=== PATIENT | male | born 1965 | race Caucasian/White ===

== ENCOUNTER 2021-09-03 08:15 | Outpatient (REF) | payer OTHER, SELFPAY ==
[2021-09-03 10:54] LABS: Hemoglobin 15.5 g/dl (14.0-18.0); Mean Corpuscular Hemoglobin 29.3 pg (27.0-33.0); Mean Corpuscular Volume 88.8 fL (80.0-98.0); Mean Platelet Volume 9.7 fL (9.4-12.4); Platelet Count 223 X10*3/uL (160-400); Red Blood Count 5.29 X10*6/uL (4.60-5.80); Red Cell Distribution Width 12.1 % (11.0-16.0); White Blood Count 7.7 X10*3/uL (4.8-10.8)
[2021-09-03 11:08] LABS: Alanine Aminotransferase 27 U/L (0-40); Albumin Level 4.2 g/dL (3.5-5.0); Alkaline Phosphatase 58 U/L (39-117); Anion Gap 13 (12-20); Aspartate Amino Transferase 18 U/L (5-37); Bilirubin Total 0.5 mg/dL (0.0-1.0); Blood Urea Nitrogen 18 mg/dL (9-16); Calcium 9.4 mg/dL (8.4-10.2); Carbon Dioxide 26 mmol/L (22-29); Chloride 105 mmol/L (96-108); Cholesterol 166 mg/dL; Estimated Glomerular Filt Rate > 60; Glucose Fasting 162 mg/dL (60-99); HDL Cholesterol 34 mg/dL; LDL Cholesterol Calculated 106 mg/dl; Potassium 4.7 mmol/L (3.3-5.1); Sodium 139 mmol/L (135-145); Total Protein 7.1 g/dL (6.5-8.0); Triglycerides 134 mg/dL
[2021-09-03 11:30] LABS: TSH reflex Free T4 0.83 uIU/mL (0.32-4.0)
== END 2021-09-03 08:16 | disposition home or self-care (01) ==
LOC: HO.WFDLDS 08:15
PROVIDERS: Visit Provider Hospitalist
DX: Z00.00 Encounter for general adult medical examination without abnormal findings (principal)
CPT/HCPCS: 36415; 80053; 80061; 84443; 85027

== ENCOUNTER 2022-07-09 09:32 | Outpatient (REF) | payer BC, SELFPAY ==
[2022-07-09 12:00] LABS: Appearance Urine Hazy; Color Urine Yellow; Glucose Urine UA Negative (Negative); Leukocyte Esterase Urine Negative (Negative); Nitrite Urine Negative (Negative); Specific Gravity - Urine 1.025 (1.005-1.025); UMIC TRIGGER UA YES; Urine Blood Negative (Negative); Urine Ketones Negative (Negative); Urine Protein 30 (1+) mg/dL (Neg-Trace)
[2022-07-09 12:08] LABS: Bacteria Urine None Seen (None Seen); Hyaline Casts Urine 0-2 /LPF (0-2); Squamous Epithelial Cell Urine 0-2 /HPF (0-2); WBC Urine 0-5 /HPF (0-5)
[2022-07-09 12:52] LABS: Creatinine Urine 135.22 mg/dL; Microalbum/Creatinine Ratio Ur 17.7 ug/mg cr
== END 2022-07-09 09:33 | disposition home or self-care (01) ==
LOC: HO.WFDLNP 09:32
PROVIDERS: Visit Provider Family Medicine
DX: Z00.00 Encounter for general adult medical examination without abnormal findings (principal); I10 Essential (primary) hypertension; N47.1 Phimosis
CPT/HCPCS: 81001; 81003; 82043

== ENCOUNTER 2022-07-25 07:34 | Outpatient (REF) | payer BC, SELFPAY ==
[2022-07-25 08:21] LABS: Basophils Absolute Auto 0.1 X10*3/uL (0.0-0.2); Basophils Percent Auto 0.7 % (0-2); Eosinophils Absolute Auto 0.1 X10*3/uL (0.0-0.4); Eosinophils Percent Auto 1.4 % (0-4); Hematocrit 48.2 % (42.0-52.0); Hemoglobin 16.5 g/dl (14.0-18.0); Imm Gran Abs Auto 0.03 X10*3/uL (0.00-0.03); Imm Gran Pct Auto 0.4 % (0.0-0.4); Lymphocytes Percent Auto 25.5 % (20-40); MANUAL DIFF FLAG SCAN; Mean Corpuscular HGB Conc 34.2 g/dl (31.0-36.0); Mean Corpuscular Hemoglobin 29.9 pg (27.0-33.0); Mean Corpuscular Volume 87.5 fL (80.0-98.0); Monocytes Absolute Auto 0.6 X10*3/uL (0.1-1.2); Monocytes Percent Auto 8.2 % (2-11); NRBC Pct Auto 0.3 /100WBC (0.0-0.2); Neutrophils Absolute Auto 4.9 x10*3/uL (2.0-8.3); Neutrophils Percent Auto 63.8 % (45-73); PLT CLUMP 1; Red Blood Count 5.51 X10*6/uL (4.60-5.80); Red Cell Distribution Width 12.1 % (11.0-16.0); SCAN SMEAR FLAG 1
[2022-07-25 08:50] LABS: Alanine Aminotransferase 42 U/L (0-40); Albumin Level 4.2 g/dL (3.5-5.0); Alkaline Phosphatase 63 U/L (39-117); Anion Gap 13 (12-20); Aspartate Amino Transferase 29 U/L (5-37); Bilirubin Total 0.6 mg/dL (0.0-1.0); Blood Urea Nitrogen 17 mg/dL (9-16); Calcium 9.6 mg/dL (8.4-10.2); Carbon Dioxide 26 mmol/L (22-29); Chloride 108 mmol/L (96-108); Cholesterol 170 mg/dL; Estimated Glomerular Filt Rate > 60; Glucose Fasting 112 mg/dL (60-99); HDL Cholesterol 34 mg/dL; LDL Cholesterol Calculated 114 mg/dl; Potassium 4.9 mmol/L (3.3-5.1); Sodium 142 mmol/L (135-145); Total Protein 7.1 g/dL (6.5-8.0); Triglycerides 112 mg/dL
[2022-07-25 08:51] LABS: White Blood Count 7.7 X10*3/uL (4.8-10.8)
[2022-07-25 08:54] LABS: SLIDE REVIEW VERIFIED
[2022-07-25 09:05] LABS: Prostate Specific Antigen Scr 0.76 ng/mL (<0.05-4.0); TSH reflex Free T4 1.24 uIU/mL (0.32-4.0)
== END 2022-07-25 07:35 | disposition home or self-care (01) ==
LOC: HO.LAB 07:34
PROVIDERS: Visit Provider Family Medicine
DX: Z00.00 Encounter for general adult medical examination without abnormal findings (principal); Z12.5 Encounter for screening for malignant neoplasm of prostate
CPT/HCPCS: 36415; 80053; 80061; 84153; 84443; 85025

== ENCOUNTER 2022-09-30 11:46 | Outpatient (AMB) | payer BC, SELFPAY ==
--- NOTE | 2022-09-30 12:24 | A.OFFVIS_ITS ---
Intake Intake Visit Reasons: Phimosis Intake Note: New Patient presents for Phimosis Urology Medications: none Blood Thinner: none Ordnance Engineering Technician Required: No Accompanied by: Self / Same As Patient Allergies No Known Allergies Allergy (Verified 10/01/22 21:30) Medication List - Last Reconciled 10/01/22 by ROSENDO Bright- albuterol sulfate 90 mcg/actuation (ProAir HFA) 2 puffs inhalation Q4-6H PRN dextroamphetamine-amphetamine 20 mg ER (Adderall XR) 40 mg (2 x 20 mg) PO QAM 30 days losartan 25 mg PO DAILY 3 months losartan 50 mg PO DAILY 3 months metronidazole 1% (Metrogel) 1 ea topical DAILY 1 month pantoprazole 40 mg PO DAILY triamcinolone acetonide 0.1% 1 appl topical BID 30 days HPI HPI Comments History of Present Illness Details Jaren is a very pleasant 56-year-old male patient of . He has a past medical history of hypertension, GERD, and obesity. He presents to the office today as a new patient for phimosis. In discussion with the patient today he reports to be doing and feeling well. He reports over the last few months noting increase issues with the foreskin on his penis. He reports having had a similar experience approximately 30 years ago however underwent a circumcision and had been doing well up until months ago. He denies any issues with his urination. He denies urinary urgency, urinary frequency, incontinence, nocturia, hematuria, dysuria, foul smelling urine, changes to urinary stream, flank pain, fever, and or chills. He is happy with her current voiding parameters. He reports for months now he has noted his penis to be getting smaller and feels his foreskin is continuing to retract back onto the head of his penis. In assessment of the patient today it appears foreskin of the penis is covering head of the penis. The tip of the penis and meatus appear reddened and irritated. No open areas, drainage, or lesions noted. Discussed at length weight loss can improve pressure that is being applied to pelvic area and assist with phimosis. In office urinalysis results reviewed with the patient today. Patient otherwise denies any issues or concerns at this time. [facility] Surgical History History of carpal tunnel release History of eye surgery Family History Father No problems noted. Mother Breast cancer Sister In good health Brother Heart problem Social History Housing: House Patient Tobacco Use Status: Former Tobacco user e-Cigarette/Vaping Use: Never Used service: Yes Current occupational status: employed Current occupation: [employer] Cognitive needs: No Hearing needs: No Vision needs: Yes Review of Systems Const Reports as per HPI Eyes Reports no additional complaints ENT Reports no additional complaints Card Reports as per HPI Resp Reports no additional complaints GI Reports as per HPI Reports as per HPI Musc Reports no additional complaints Neuro Reports no additional complaints Psych Reports no additional complaints Endo Reports no additional complaints Kalpesh/Lymph Reports no additional complaints Aller/Immun Reports no additional complaints Physical Exam Const General: cooperative, comfortable, no acute distress, well developed, alert and awake Nutritional Appearance: overweight Orientation/consciousness: patient oriented x3 Limitations: no limitations HEENT Head: Yes normal to inspection, Yes normocephalic and Yes atraumatic Ears: hearing grossly normal bilaterally Eyes General: appearance normal, both eyes and all related structures Neck Neck: Yes normal visual inspection and Yes trachea midline Chest Chest palpation & inspection: normal inspection of the chest Resp Effort & Inspection: normal respiratory effort and able to speak in complete sentences Cardio Rate: regular rate GI Inspection: Yes normal to inspection General: Yes no CVA tenderness Penis: phimosis and other (redness/irritation noted to the head of the penis ) Meatus: Erythema at meatus Scrotum: scrotum normal Testes: Testes normal Back/Spine/Pelvis Back: no CVA tenderness Skin General skin exam: no rashes or lesions noted Neuro General: patient oriented x3 Extrem General: Yes normal to inspection Psych Appearance: grossly normal and well kempt Mental Status: mental status grossly normal Speech and movement: Normal speech and movement present and Clear speech present Affect: normal affect Attitude: cooperative Thought process: Normal thought process present Thought content: Normal thought content present Insight: Fair insight present (Psych) Judgement: Fair judgement present (Psych) Results AMB Urinalysis, Automated UA Leukoctes 15 Alecia/uL Last Edit by Lauren Maosn on 09/30/22 12:34 UA Nitrite Negative Last Edit by Vinhyce Isabella on 09/30/22 12:34 UA Urobilinogen 0.2 mg/dL Last Edit by Vinhyce Isabella on 09/30/22 12:34 UA Protein 15 mg/dL Last Edit by Lauren Mason on 09/30/22 12:34 UA pH 6.0 Last Edit by Vinhyce Isabella on 09/30/22 12:34 UA Blood 0 Andrea/uL Last Edit by Vinhyce Isabella on 09/30/22 12:34 UA Specific [place] 1.020 Last Edit by Vinhyce Isabella on 09/30/22 12:34 UA Ketone Negative Last Edit by [employer] Isabella on 09/30/22 12:34 UA Bilirubin 0 mg/dL Last Edit by Lauren Mason on 09/30/22 12:34 UA Glucose 0 mg/dL Last Edit by Lauren Mason on 09/30/22 12:34 Results Reviewed Results Reviewed: Laboratory Last Values Urine pH (Auto) 6.0 09/30/22 12:28 Specific [place] (Auto) 1.020 09/30/22 12:28 Urine Protein (Auto) 15 mg/dL 09/30/22 12:28 Glucose (UA)(Auto) 0 mg/dL 09/30/22 12:28 Urine Ketones (Auto) Negative 09/30/22 12:28 Urine Blood (Auto) 0 Andrea/uL 09/30/22 12:28 Urine Nitrite (Auto) Negative 09/30/22 12:28 Urine Bilirubin (Auto) 0 mg/dL 09/30/22 12:28 Urine Urobilinogen (Auto) 0.2 mg/dL 09/30/22 12:28 Leukocyte Esterase (Auto) 15 Alecia/uL 09/30/22 12:28 Assessment & Plan Assessment & Plan (1) Phimosis: Code(s): N47.1 - Phimosis Plan In office urinalysis results reviewed with the patient today; as noted above. Start Triamcinolone cream as discussed and prescribed. Discussed at length importance of weight loss for improvement in phimosis due to excessive weight on pelvis Patient denies any urinary issues at this time He is happy with his current voiding parameters Follow-up in 1 month; if not sooner with any issues, concerns, and or questions. Orders: Orders AMB Urinalysis Automated 09/30/22 Z13.9 - Encounter for screening, unspecified Medications: New triamcinolone acetonide 0.1% 1 appl topical BID 30 days 80 grams 0RF Discontinued clobetasol 0.05% Discontinued Reason: Doctor's Order 1 appl topical BID PRN 15 grams 0RF phimosis Patient Instructions: The patient had an opportunity to ask questions regarding the treatment plan. All questions were answered. Physical exam, labs, and imaging were discussed and reviewed in detail. As well as risks, benefits, and discussion of treatment choices. No major barriers to understanding were identified. The patient expressed understanding and agreement with the above treatment plan. The patient was made aware they should contact our office by phone for worsening of their current condition, the appearance of new symptoms, or with any questions or concerns. Compliance is encouraged with any medications and follow up testing that is ordered. It is a privilege to be allowed the opportunity to participate in? your urological care.? Again, if you have any questions or concerns If you have any questions or concerns please do not hesitate to contact me. The office is [phone]. This note is constructed using voice recognition software. While every effort has been made to ensure accuracy train planner errors may have been included. Yours sincerely, MANOHAR Bright Coding Level of Care Code New Pt Level 4 (24654) Diagnoses Phimosis N47.1
== END 2022-09-30 13:00 | disposition home or self-care (01) ==
PROVIDERS: PCP Hospitalist; Visit Provider Nurse Practitioner Family
DX: N47.1 Phimosis (principal)
CPT/HCPCS: 99204

== ENCOUNTER → 2022-09-30 11:46 | Outpatient (BNVA) | payer BC, SELFPAY | PROVIDERS: PCP Hospitalist; Visit Provider Nurse Practitioner Family ==

== ENCOUNTER 2022-11-09 11:22 | Outpatient (AMB) | payer BC, SELFPAY ==
--- NOTE | 2022-11-09 11:27 | A.OFFVIS_ITS ---
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: No Accompanied by: Self / Same As Patient Allergies No Known Allergies Allergy (Verified 11/09/22 11:56) Medication List - Last Reconciled 11/09/22 by JIMBO BrightP- albuterol sulfate 90 mcg/actuation (ProAir HFA) 2 puffs inhalation Q4-6H PRN dextroamphetamine-amphetamine 20 mg ER (Adderall XR) 40 mg (2 x 20 mg) PO QAM 30 days losartan 25 mg PO DAILY 3 months losartan 50 mg PO DAILY 3 months metronidazole 1% (Metrogel) 1 ea topical DAILY 1 month pantoprazole 40 mg PO DAILY triamcinolone acetonide 0.1% 1 appl topical BID 30 days HPI HPI Comments History of Present Illness Details Jaren is a very pleasant 56-year-old male patient of Dr. Hernandez. He has a past medical history of hypertension, GERD, and obesity. He presents to the office today for follow-up. Of note, patient was seen approximately 6 weeks ago as a new patient for phimosis at which time he was prescribed triamcinolone cream. In discussion with the patient today he reports to be doing and feeling well. He discusses his recent vacation to [place] to visit family. He reports cream to be working well however forgot to pack the cream when he was on vacation and did not use it for approximately 8 days. He otherwise feels cream is working. He denies any issues with his urination. He denies urinary urgency, urinary frequency, incontinence, nocturia, hematuria, dysuria, foul-smelling urine, changes to urinary stream, flank pain, fever, and or chills. He is happy with his current voiding parameters. In assessment of the patient today foreskin is able to be retracted and metus appears normal. There is still mild irritation noted to the gland of the penis however much improved from last visit. He otherwise has no lesions, lumps, and or drainage noted to penis, scrotum, and or testicles. He reports having had a similar experience approximately 30 years ago however underwent a circumcision and had been doing well up until months ago. He reports for months now he has noted his penis to be getting smaller and feels his foreskin is continuing to retract back onto the head of his penis. Discussed and stressed at length weight loss can improve pressure that is being applied to pelvic area and assist with phimosis. In office urinalysis results reviewed with the patient today. Patient otherwise denies any issues or concerns at this time. [facility] Surgical History History of carpal tunnel release History of eye surgery Family History Father No problems noted. Mother Breast cancer Sister In good health Brother Heart problem Social History Housing: House Patient Tobacco Use Status: Former Tobacco user e-Cigarette/Vaping Use: Never Used service: Yes Current occupational status: employed Current occupation: [employer] Cognitive needs: No Hearing needs: No Vision needs: Yes Review of Systems Const Reports as per HPI Eyes Reports no additional complaints ENT Reports no additional complaints Card Reports as per HPI Resp Reports no additional complaints GI Reports as per HPI Reports as per HPI Musc Reports no additional complaints Neuro Reports no additional complaints Psych Reports no additional complaints Endo Reports no additional complaints Kalpesh/Lymph Reports no additional complaints Aller/Immun Reports no additional complaints Physical Exam Const General: cooperative, comfortable, no acute distress, well developed, alert and awake Nutritional Appearance: overweight Orientation/consciousness: patient oriented x3 Limitations: no limitations HEENT Head: Yes normal to inspection, Yes normocephalic and Yes atraumatic Ears: hearing grossly normal bilaterally Eyes General: appearance normal, both eyes and all related structures Neck Neck: Yes normal visual inspection and Yes trachea midline Chest Chest palpation & inspection: normal inspection of the chest Resp Effort & Inspection: normal respiratory effort and able to speak in complete sentences Cardio Rate: regular rate GI Inspection: Yes normal to inspection General: Yes no CVA tenderness Penis: phimosis and other (mild redness/irritation noted to the head/gland of the penis ) Meatus: Erythema at meatus Scrotum: scrotum normal Testes: Testes normal Back/Spine/Pelvis Back: no CVA tenderness Skin General skin exam: no rashes or lesions noted Neuro General: patient oriented x3 Extrem General: Yes normal to inspection Psych Appearance: grossly normal and well kempt Mental Status: mental status grossly normal Speech and movement: Normal speech and movement present and Clear speech present Affect: normal affect Attitude: cooperative Thought process: Normal thought process present Thought content: Normal thought content present Insight: Fair insight present (Psych) Judgement: Fair judgement present (Psych) Results AMB Urinalysis, Automated UA Leukoctes 0 Alecia/uL Last Edit by [employer] on 11/09/22 11:44 UA Nitrite Last Edit by [employer] on 11/09/22 11:44 UA Urobilinogen 0.2 mg/dL Last Edit by [employer] on 11/09/22 11:44 UA Protein 15 mg/dL Last Edit by [employer] on 11/09/22 11:44 UA pH 5.5 Last Edit by [employer] on 11/09/22 11:44 UA Blood 10 Andrea/uL Last Edit by [employer] on 11/09/22 11:44 UA Specific [place] 1.025 Last Edit by [employer] on 11/09/22 11:44 UA Ketone Negative Last Edit by [employer] on 11/09/22 11:44 UA Bilirubin 0 mg/dL Last Edit by [employer] on 11/09/22 11:44 UA Glucose 0 mg/dL Last Edit by [employer] on 11/09/22 11:44 Results Reviewed Results Reviewed: Laboratory Last Values Urine pH (Auto) 5.5 11/09/22 11:29 Specific [place] (Auto) 1.025 11/09/22 11:29 Urine Protein (Auto) 15 mg/dL 11/09/22 11:29 Glucose (UA)(Auto) 0 mg/dL 11/09/22 11:29 Urine Ketones (Auto) Negative 11/09/22 11:29 Urine Blood (Auto) 10 Andrea/uL 11/09/22 11:29 Urine Bilirubin (Auto) 0 mg/dL 11/09/22 11:29 Urine Urobilinogen (Auto) 0.2 mg/dL 11/09/22 11:29 Leukocyte Esterase (Auto) 0 Alecia/uL 11/09/22 11:29 Assessment & Plan Assessment & Plan (1) Phimosis: Code(s): N47.1 - Phimosis Plan In office urinalysis results reviewed with the patient today; as noted above. Continue Triamcinolone cream as discussed and prescribed; refill provided Discussed at length importance of weight loss for improvement in phimosis due to excessive weight on pelvis Patient denies any urinary issues at this time He is happy with his current voiding parameters Follow-up in 3 months; if not sooner with any issues, concerns, and or questions. Orders: Orders AMB Urinalysis Automated Today Z13.9 - Encounter for screening, unspecified Medications: Refilled triamcinolone acetonide 0.1% 1 appl topical BID 30 days 80 grams 1RF Patient Instructions: The patient had an opportunity to ask questions regarding the treatment plan. All questions were answered. Physical exam, labs, and imaging were discussed and reviewed in detail. As well as risks, benefits, and discussion of treatment choices. No major barriers to understanding were identified. The patient expressed understanding and agreement with the above treatment plan. The patient was made aware they should contact our office by phone for worsening of their current condition, the appearance of new symptoms, or with any questions or concerns. Compliance is encouraged with any medications and follow up testing that is ordered. It is a privilege to be allowed the opportunity to participate in? your urological care.? Again, if you have any questions or concerns If you have any questions or concerns please do not hesitate to contact me. The office is [phone]. This note is constructed using voice recognition software. While every effort has been made to ensure accuracy arts administrator or manager errors may have been included. Yours sincerely, MANOHAR Bright Coding Level of Care Code Est Pt Level 3 (60926) Diagnoses Phimosis N47.1
== END 2022-11-09 11:59 | disposition home or self-care (01) ==
PROVIDERS: PCP Hospitalist; Visit Provider Nurse Practitioner Family
DX: N47.1 Phimosis (principal)
CPT/HCPCS: 99213

== ENCOUNTER → 2022-11-09 11:22 | Outpatient (BNVA) | payer BC, SELFPAY | PROVIDERS: PCP Hospitalist; Visit Provider Nurse Practitioner Family | DX: N47.1 Phimosis (principal) | CPT/HCPCS: 81003 ==

== ENCOUNTER 2022-12-18 08:12 | Outpatient (AMB) | payer BC, SELFPAY ==
--- NOTE | 2022-12-18 08:17 | MHC.PC.OV ---
Vital Signs 12/18/22 08:19 Height 6 ft 1 in Weight 330 lb 8 oz BMI 43.6 BP 126/82 Blood Pressure Location Lt brachial Position Sitting Respiration 15 Pulse 84 Pulse Source Pulse Oximeter Temp 98.8 F Temp Source Oral Pulse Oximetry (%) 97 Oxygen Delivery Method Room Air Intake Visit Reasons: Physical exam Intake Note: Patient is here for a physical today with a question regarding Adderall medication. Education Courses Sales Representative Required: No Accompanied by: Self / Same As Patient Allergies No Known Allergies Allergy (Verified 12/18/22 08:41) Medication List - Last Reconciled 12/18/22 by Ray Logan CNP albuterol sulfate 90 mcg/actuation (ProAir HFA) 2 puffs inhalation Q4-6H PRN dextroamphetamine-amphetamine 20 mg ER (Adderall XR) 40 mg (2 x 20 mg) PO QAM 30 days losartan 25 mg PO DAILY 3 months losartan 50 mg PO DAILY 3 months metronidazole 1% (Metrogel) 1 ea topical DAILY 1 month pantoprazole 40 mg PO DAILY triamcinolone acetonide 0.1% 1 appl topical BID 30 days Tobacco use date assessed: 09/09/22 HPI HPI Comments History of Present Illness Details 57-year-old male presents for complete physical exam. He has past medical history significant for ADHD, GERD, obesity, and hypertension. He is on Adderall, losartan, pantoprazole, and triamcinolone cream. He reports controlled ADHD symptoms on Adderall and denies anxiety, sleep disturbances, or changes in appetite. He is followed by urology for pyimosis. He was prescribed triamcinolone cream which he admits is effective. His PCP was NICKOLAS who was no longer with the practice. He was last evaluated in the office on 09/09/2022. CMP and A1c labs were ordered. However, the patient has not gotten his blood work done. He has history of elevated fasting glucose, low HDL, and slightly elevated ALT. He notes he walks a mile every day and his diet is fairly healthy. His last blood work was in July 2022. He notes that he has never had a colonoscopy done. He states he has not had the shingrex vaccines He denies family history of diabetes. [facility] Surgical History History of carpal tunnel release History of eye surgery Family History Father No problems noted. Mother Breast cancer Sister In good health Brother Heart problem Social History Housing: House Patient Tobacco Use Status: Former Tobacco user e-Cigarette/Vaping Use: Never Used service: Yes Current occupational status: employed Current occupation: [email or web address] Cognitive needs: No Hearing needs: No Vision needs: Yes Questionnaire PHQ-9 Over the last 2 weeks, how often have you been bothered by any of the following problems? 1. Little interest or pleasure in doing things: not at all 2. Feeling down, depressed, or hopeless: not at all 3. Trouble falling or staying asleep, or sleeping too much: not at all 4. Feeling tired or having little energy: not at all 5. Poor appetite or overeating: not at all 6. Feeling bad about yourself - or that you are a failure or have let yourself or your family down: not at all 7. Trouble concentrating on things, such as reading the newspaper or watching television: not at all 8. Moving or speaking so slowly that other people could have noticed. Or the opposite - being so fidgety or restless that you have been moving around a lot more than usual: not at all 9. Thoughts that you would be better off or of hurting yourself in some way: not at all Total score: 0 Depression Screening Interpretation: Negative 98417 - PHQ-9 Billing: Yes Source: Developed by Drs. Cooper Kearney, Makayla Herbert, Christopher Araya and colleagues, with an educational marques from [employer]. Thrive Questionnaire Date Thrive assessed: 12/18/22 I am a: Patient What is your living situation today?: I have a steady place to live Within the past 12 months, did the food you bought not last and you didn't have the money to get more?: Never true Within the past 12 months, did you worry whether your food would run out before you got money to buy more?: Never true Do you have trouble paying for medicines?: No Do you have trouble getting transportation to medical appointments?: No Do you have trouble paying your heating and electricity bill?: No Do you have trouble taking care of your child, family member or friend?: No Do you have trouble with day-to-day activities such as bathing, preparing meals, shopping, managing finances, etc.?: No Are you currently unemployed and looking for a job?: No Are you interested in more education?: No Currently or been in a relationship where the following occur: no concerns reported AUDIT C Alcohol Use Questionnaire (AUDIT-C) 1. How often do you have a drink containing alcohol?: Never 3. How often do you have six or more drinks on one occasion?: Never Total Score: 0 MG-7 AMB Questionnaire MG-7 Date MG - 7 assessed: 12/18/22 Feeling nervous, anxious, or on edge: 0 = Not at all Not being able to stop or control worryin = Not at all Worrying too much about different things: 0 = Not at all Trouble relaxin = Not at all Being so restless that it is hard to sit still: 0 = Not at all Becoming easily annoyed or irritable: 0 = Not at all Feeling afraid as if something awful might happen: 0 = Not at all Total MG-7 score (0-4 normal; 5-9 mild; 10-14 moderate; 15-21 severe): 0 Source: Developed by Drs. Cooper Kearney, Makayla Herbert, Christopher Araya and colleagues, with an educational marques from [employer]. MG-7 Assessment Billing MG-7 Assessment Tool: MG-7 Assessment 72822 Review of Systems Const Details: Denies chills, Denies fatigue, Denies fever(s), Denies headache(s) and Denies weakness HEENT Denies change in vision, Denies dizziness, Denies headache(s), Denies hearing loss, Denies nasal congestion, Denies sinus pain, Denies sinus pressure and Denies sore throat Card Denies chest pain, Denies lightheadedness, Denies dyspnea and Denies other (palpitations) Resp Denies cough, Denies dyspnea and Denies wheezing GI Denies abdominal pain, Denies melena, Denies hematochezia, Denies change in bowel habits, Denies dyspepsia and Denies nausea Denies hematuria and Denies dysuria Musc Denies abnormal gait, Denies myalgias, Denies arthralgias, Denies numbness and Denies tingling Skin/Breast Denies rash, Denies unusual bruising and Denies wounds Neuro Denies abnormal gait, Denies dizziness, Denies headache(s), Denies memory loss, Denies numbness, Denies Sensory deficit (Neuro), Denies tingling and Denies weakness Psych Denies anxiety, Denies depression and Denies memory loss Endo Denies cold intolerance, Denies fatigue, Denies heat intolerance, Denies polydipsia and Denies polyuria Kalpesh/Lymph Denies easy bleeding and Denies easy bruising Aller/Immun Denies wheezing Physical exam (Primary Care) Vital Signs: Last Vital Signs Temp 98.8 F 12/18/22 08:19 Pulse 84 12/18/22 08:19 Resp 15 12/18/22 08:19 BP 126/82 12/18/22 08:19 Pulse Ox 97 12/18/22 08:19 Oxygen Delivery Method Room Air 12/18/22 08:19 BMI result Body Mass Index 43.6 Tobacco/Smoking Status: Tobacco use Status Tobacco use date assessed 09/09/22 12/18/22 08:18 Patient Tobacco Use Status Former Tobacco user 12/18/22 08:18 e-Cigarette/Vaping Use Never Used 12/18/22 08:18 Depression Screening Interpretation: Negative Thrive Assessment: Date of Thrive Assessment Date Thrive assessed 09/03/21 12/18/22 08:18 Currently or been in a relationship where the following occur: no concerns reported Const Other: General: no acute distress, well developed, alert and awake Nutritional Appearance: well nourished Orientation/consciousness: patient oriented x3 HENMT Head: Yes normocephalic and Yes atraumatic Ears: hearing grossly normal bilaterally and TM's normal bilaterally General nose exam: Normal external nose present and Normal nares present Mouth: Normal oral and palatal mucosa present and moist mucous membranes Teeth and gingiva: dentition normal Throat: Yes oropharynx normal Eyes Pupils: Equal, round and reactive pupils present and Pupil accommodation reflex normal EOM: EOMs intact bilaterally Neck Neck: Yes normal visual inspection, Yes no lymphadenopathy and Yes trachea midline Thyroid: Thyroid normal Carotids: no bruits Lymphatic: no lymphadenopathy noted Chest Chest palpation & inspection: normal inspection of the chest Resp Effort & Inspection: normal respiratory effort Auscultation: clear to auscultation bilaterally Cardio Rate: regular rate Rhythm: regular rhythm Heart sounds: S1 normal heart sound present, S2 normal heart sound present, no gallops, no murmurs and no rubs Bruits: no abdominal aortic bruits and no carotid bruits GI Palpation (GI): No Abdominal aortic bruit present, Soft to palpation, nontender, No hepatosplenomegaly present and No Rebound tenderness present Auscultation: normal bowel sounds General: Yes no CVA tenderness Back/Spine/Pelvis Back: no CVA tenderness Cervical Spine: cervical ROM normal and No Cervical spine tenderness Thoracic/Lumbar Spine: thoraco-lumbar ROM normal, No pain with thoraco-lumbar ROM, No thoracic spinal tenderness and No lumbar spinal tenderness Skin General: warm and dry. Normal skin color. Normal skin turgor Lesions: no lesions Rashes: no rashes Trauma: no lacerations or abrasions Wounds: no wounds Nails: normal Neuro General: patient oriented x3, gait normal and CN's II-XI intact bilaterally Cranial nerves: Yes Equal, round and reactive pupils present Cognition (Neuro): normal cognition Gait exam (Neuro): Normal gait present Motor exam (neuro): 5/5 motor strength present throughout Sensory Exam: No Sensory deficit (Neuro) Deep tendon reflexes (DTR's): Right patellar reflex intensity grade: 2+ and Left patellar reflex intensity grade: 2+ Extrem General: Yes normal to inspection, No edema and No calf tenderness Psych Appearance: grossly normal Affect: normal affect Attitude: cooperative Thought process: Normal thought process present Results AMB Hemoglobin A1c AMB Hemoglobin A1c 5.8 % Last Edit by Miryam Melgar MA on 12/18/22 09:15 Assessment and Plan Assessment & Plan (1) Normal physical examination, routine: Code(s): Z00.00 - Encounter for general adult medical examination without abnormal findings Plan: No significant physical restrictions or limitations noted Advised to fast for at least 10-12 hours and get fasting blood work done before his next visit Follow-up in 3 months for ADHD and hypertension Return sooner with symptoms or concerns Verbalized understanding and agreed with treatment plan (2) Low HDL (under 40): Code(s): E78.6 - Lipoprotein deficiency Plan: Recent HLD was low, 34. Triglyceride, total cholesterol, and LDL were within normal limits Advised to limit foods high in saturated fat and avoid foods high trans fat Routine exercise encouraged Repeat lipid levels. Advised to get blood work done before his next visit Follow-up in 3 months or return sooner with symptoms or concerns Verbalized understanding and agreed with treatment plan. (3) Elevated ALT measurement: Code(s): R74.01 - Elevation of levels of liver transaminase levels Plan: Recent ALT level was slightly elevated, 42 Likely due to hepatic steatosis Will repeat lipid panel. Advised to get fasting blood work done before his next visit Follow-up in 3 months or return sooner with symptoms or concerns Verbalized understanding and agreed with treatment plan. (4) Morbid obesity with BMI of 40.0-44.9, adult: Code(s): E66.01 - Morbid (severe) obesity due to excess calories; Z68.41 - Body mass index [BMI] 40.0-44.9, adult Plan: He currently weighs 330 lb. His BMI is 43.6 With loss encouraged Instructed on healthy diet and routine exercise Referred to with management Return with symptoms or concerns Verbalized understanding and agreed with treatment plan. (5) Hypertension, essential: Code(s): I10 - Essential (primary) hypertension Plan: Blood pressure is 126/82, within goal of less than 140/90 Continue to take losartan as prescribed Low-sodium diet encouraged Follow-up in 3 months or sooner with symptoms or concerns Verbalized understanding and agreed with treatment plan. (6) Pre-diabetes: Code(s): R73.03 - Prediabetes Plan: He has history of elevated fasting blood glucose A1c today is 5.8% and indicates pre diabetes Healthy diet and routine exercise encouraged Referred to weight management Verbalized understanding and agreed with treatment plan. (7) Colon cancer screening: Code(s): Z12.11 - Encounter for screening for malignant neoplasm of colon Plan: He notes he has never had a colonoscopy done Referred to GI for a colonoscopy (8) Vaccine counseling: Code(s): Z71.85 - Encounter for immunization safety counseling Plan: He notes he has never had the Shingrix vaccines Instructed on importance of vaccination and encouraged to get shingles vaccines He verbalized understanding and agreed with treatment plan. Orders: Orders AMB Hemoglobin A1c Today Z13.9 - Encounter for screening, unspecified Liver Panel Today R74.01 - Elevation of levels of liver transaminase levels Lipid Panel Today E78.6 - Lipoprotein deficiency Referrals Medical Weight Management Referral E66.01 - Morbid (severe) obesity due to excess calories, R73.03 - Prediabetes, Z68.41 - Body mass index [BMI] 40.0-44.9, adult Gastroenterology Referral Z12.11 - Encounter for screening for malignant neoplasm of colon Medications: Refilled dextroamphetamine-amphetamine 20 mg ER (Adderall XR) MassPat verified. Partial refill upon request. 40 mg (2 x 20 mg) PO QAM 30 days 60 caps 0RF Coding Level of Care Code Est Pt Prev Care 40-64y(43749) Diagnoses Normal physical examination, routine Z00.00 Low HDL (under 40) E78.6 Elevated ALT measurement R74.01 Morbid obesity with BMI of 40.0-44.9, adult E66.01; Z68.41 Hypertension, essential I10 Pre-diabetes R73.03 Colon cancer screening Z12.11 Vaccine counseling Z71.85 Additional Codes MG-7 Assessment Billing - MG-7 Assessment Tool: MG-7 Assessment [id number] ([id number])
[2022-12-18 08:19] VITALS: BP 126/82; PULSE 84; RESP 15; TEMP 37.1; O2SAT 97; BMI 43.6
== END 2022-12-18 09:17 | disposition home or self-care (01) ==
PROVIDERS: PCP Hospitalist; Visit Provider Nurse Practitioner Family
DX: Z00.00 Encounter for general adult medical examination without abnormal findings (principal); E78.6 Lipoprotein deficiency; E66.01 Morbid (severe) obesity due to excess calories; Z68.41 Body mass index [BMI] 40.0-44.9, adult; R73.03 Prediabetes
CPT/HCPCS: 83036; 99396

== ENCOUNTER 2022-12-18 08:40 | Outpatient (REF) | payer BC, SELFPAY | END 2022-12-18 08:41 | disposition home or self-care (01) | LOC: HO.LAB 08:40 | PROVIDERS: Visit Provider Nurse Practitioner Family | DX: Z13.89 Encounter for screening for other disorder (principal) ==

== ENCOUNTER 2023-02-04 07:23 | Outpatient (AMB) | payer BC, SELFPAY ==
--- NOTE | 2023-02-04 07:31 | MHC.OFFVIS ---
Intake Vital Signs 02/04/23 07:35 Height 6 ft 1 in Weight 322 lb BMI 42.5 BP 127/76 Blood Pressure Location Lt brachial Position Sitting Pulse 75 Intake Visit Reasons: Colonoscopy Screening Intake Note: Patient new consult for 1st pre colonoscopy screening. Patient denies any GI issues. Basketball Scout Required: No Accompanied by: Self / Same As Patient Allergies No Known Allergies Allergy (Verified 02/04/23 07:31) Medication List - Last Reconciled 02/04/23 by Krista Herrera PA-C albuterol sulfate 90 mcg/actuation (ProAir HFA) 2 puffs inhalation Q4-6H PRN dextroamphetamine-amphetamine 20 mg ER (Adderall XR) 40 mg (2 x 20 mg) PO QAM 30 days losartan 25 mg PO DAILY 3 months losartan 50 mg PO DAILY 3 months metronidazole 1% (Metrogel) 1 ea topical DAILY 1 month pantoprazole 40 mg PO DAILY triamcinolone acetonide 0.1% 1 appl topical BID 30 days HPI HPI Comments History of Present Illness Details A 57-year-old male referred for Index screening colonoscopy No family history of GI cancer He has no GI or general complaints No cardiac or respiratory history He has a normal bowel pattern Good appetite, no acid reflux Well-controlled asthma No nausea, vomiting, hematemesis, hematochezia abdominal pain fever or chills PFSH Surgical History History of carpal tunnel release History of eye surgery Family History Father No problems noted. Mother Breast cancer Sister In good health Brother Heart problem Social History Housing: House Patient Tobacco Use Status: Former Tobacco user e-Cigarette/Vaping Use: Never Used service: Yes Current occupational status: employed Current occupation: [employer] Cognitive needs: No Hearing needs: No Vision needs: Yes Review of Systems Const All systems reviewed & are unremarkable except as noted in HPI and below Card Denies chest pain and Denies dyspnea Resp Denies dyspnea GI Denies abdominal pain, Denies bloating, Denies hematochezia, Denies heartburn, Denies nausea and Denies vomiting Skin/Breast Details: Rosacea- follows derm Physical Exam Vital Signs: Last Vital Signs Pulse 75 02/04/23 07:35 BP 127/76 02/04/23 07:35 BMI result Body Mass Index 42.5 Const General: cooperative, comfortable and no acute distress Nutritional Appearance: obese Orientation/consciousness: patient oriented x3 Limitations: no limitations Eyes Sclerae: sclerae normal Resp Effort & Inspection: normal respiratory effort and able to speak in complete sentences Auscultation: clear to auscultation bilaterally, no rales, no rhonchi and no wheezes Cardio Rate: regular rate Rhythm: regular rhythm Heart sounds: S1 normal heart sound present and S2 normal heart sound present GI Inspection: Yes obesity Palpation (GI): Tenderness to palpation present (GI) Auscultation: normal bowel sounds Skin General skin exam: erythema (face) Lesions: lesion noted (nose) Neuro General: patient oriented x3 Extrem General: Yes full ROM Psych Appearance: grossly normal and well kempt Mental Status: mental status grossly normal Speech and movement: Normal speech and movement present and Clear speech present Affect: normal affect Attitude: cooperative Thought process: Normal thought process present Thought content: Normal thought content present Insight: Good insight present (Psych) Judgement: Good judgement present (Psych) Assessment & Plan Assessment & Plan (1) Colon cancer screening: Comment: Very pleasant 57-year-old male index screening colonoscopy No GI complaints Discussed procedure, risks, need for escorted due to anesthesia Code(s): Z12.11 - Encounter for screening for malignant neoplasm of colon Plan: Index screening colonoscopy Plan Index screening colonoscopy MiraLax Gatorade prep Bariatric bed Orders: Orders Colonoscopy - GI Use Only Today Z12.11 - Encounter for screening for malignant neoplasm of colon Medications: New polyethylene glycol 3350 (Miralax) Take as directed by mouth the day before your procedure. 238 grams PO ONCE 1 day PRN 238 grams 0RF laxative effect bisacodyl (Dulcolax (bisacodyl)) Day before procedure, prep day Take 4 tablets by mouth upon awakening followed by large glass of water 20 mg (4 x 5 mg) PO ONCE 1 day 4 tabs 0RF colonoscopy prep Z12.11 - Encounter for screening for malignant neoplasm of colon Patient Instructions: Index screening colonoscopy MiraLax Gatorade prep-reviewed and literature given Encouraged to call questions or concerns Coding Level of Care Code New Pt Level 3 (48619) Diagnoses Colon cancer screening Z12.11 Time Spent (min) 25
[2023-02-04 07:35] VITALS: BP 127/76; PULSE 75; BMI 42.5
== END 2023-02-04 08:44 | disposition home or self-care (01) ==
PROVIDERS: PCP Hospitalist; Visit Provider Physician Assistant
DX: Z01.818 Encounter for other preprocedural examination (principal); Z12.11 Encounter for screening for malignant neoplasm of colon
CPT/HCPCS: S0285

== ENCOUNTER → 2023-02-04 07:23 | Outpatient (BNVA) | payer BC, SELFPAY | PROVIDERS: PCP Hospitalist; Visit Provider Physician Assistant ==

== ENCOUNTER 2023-02-05 08:32 | Outpatient (AMB) | payer BC, SELFPAY ==
--- NOTE | 2023-02-05 08:44 | MHC.OFFVIS ---
Intake Intake Visit Reasons: 3m follow up/Pvr Intake Note: Patient presents for follow up Phimosis Urology Medications: triamcinolone cream Blood Thinner: none Miniature Train Driver Required: No Accompanied by: Self / Same As Patient Allergies No Known Allergies Allergy (Verified 02/05/23 14:55) Medication List - Last Reconciled 02/05/23 by JIMBO BrightP- albuterol sulfate 90 mcg/actuation (ProAir HFA) 2 puffs inhalation Q4-6H PRN bisacodyl (Dulcolax (bisacodyl)) 20 mg (4 x 5 mg) PO ONCE 1 day dextroamphetamine-amphetamine 20 mg ER (Adderall XR) 40 mg (2 x 20 mg) PO QAM 30 days losartan 25 mg PO DAILY 3 months losartan 50 mg PO DAILY 3 months metronidazole 1% (Metrogel) 1 ea topical DAILY 1 month pantoprazole 40 mg PO DAILY polyethylene glycol 3350 (Miralax) 238 grams PO ONCE PRN 1 day triamcinolone acetonide 0.1% 1 appl topical BID 30 days HPI HPI Comments History of Present Illness Details Jaren is a very pleasant 57-year-old male patient of Dr. Hernandez. He has a past medical history of hypertension, GERD, and obesity. He presents to the office today for follow-up of his phimosis. He has been compliant with his triamcinolone cream. In discussion with the patient today he reports to be doing and feeling well. He denies any issues with his urination. He denies urinary urgency, urinary frequency, incontinence, nocturia, hematuria, dysuria, foul-smelling urine, changes to urinary stream, flank pain, fever, and or chills. He is happy with his current voiding parameters. In assessment of the patient today foreskin is able to be somewhat retracted and meatus appears normal. However, foreskin near the frenulum of the penis is not retractable and appears adhered circumferential. Significant reduced length between frenulum and penile scrotal junction is shortened. He has a large suprapubic fat pad. There is still mild irritation noted to the gland of the penis however much improved from last visit. He otherwise has no lesions, lumps, and or drainage noted to penis, scrotum, and or testicles. He reports having had a similar experience approximately 30 years ago however underwent a circumcision and had been doing well up until a year ago. He reports for months now he has noted his penis to be getting smaller and feels his foreskin is continuing to retract back onto the head of his penis. Discussed and stressed at length weight loss can improve pressure that is being applied to pelvic area and assist with phimosis. In office urinalysis results reviewed with the patient today. Patient otherwise denies any issues or concerns at this time. COUNT INCLUDES [facility] Surgical History History of carpal tunnel release History of eye surgery Family History Father No problems noted. Mother Breast cancer Sister In good health Brother Heart problem Social History Housing: House Patient Tobacco Use Status: Former Tobacco user e-Cigarette/Vaping Use: Never Used service: Yes Current occupational status: employed Current occupation: [employer] Cognitive needs: No Hearing needs: No Vision needs: Yes Review of Systems Const Reports as per HPI Eyes Reports no additional complaints ENT Reports no additional complaints Card Reports as per HPI Resp Reports no additional complaints GI Reports as per HPI Reports as per HPI Musc Reports no additional complaints Neuro Reports no additional complaints Psych Reports no additional complaints Endo Reports no additional complaints Kalpesh/Lymph Reports no additional complaints Aller/Immun Reports no additional complaints Physical Exam Const General: cooperative, comfortable, no acute distress, well developed, alert and awake Nutritional Appearance: overweight Orientation/consciousness: patient oriented x3 Limitations: no limitations HEENT Head: Yes normal to inspection, Yes normocephalic and Yes atraumatic Ears: hearing grossly normal bilaterally Eyes General: appearance normal, both eyes and all related structures Neck Neck: Yes normal visual inspection and Yes trachea midline Chest Chest palpation & inspection: normal inspection of the chest Resp Effort & Inspection: normal respiratory effort and able to speak in complete sentences Cardio Rate: regular rate GI Inspection: Yes normal to inspection General: Yes no CVA tenderness Penis: phimosis and other (mild redness/irritation noted to the head/gland of the penis ) Meatus: Erythema at meatus Scrotum: scrotum normal Testes: Testes normal Back/Spine/Pelvis Back: no CVA tenderness Skin General skin exam: no rashes or lesions noted Neuro General: patient oriented x3 Extrem General: Yes normal to inspection Psych Appearance: grossly normal and well kempt Mental Status: mental status grossly normal Speech and movement: Normal speech and movement present and Clear speech present Affect: normal affect Attitude: cooperative Thought process: Normal thought process present Thought content: Normal thought content present Insight: Fair insight present (Psych) Judgement: Fair judgement present (Psych) Results AMB Urinalysis, Automated UA Leukoctes 0 Alecia/uL Last Edit by [employer] on 02/05/23 09:02 UA Nitrite Negative Last Edit by [employer] on 02/05/23 09:02 UA Urobilinogen 0.2 mg/dL Last Edit by [employer] on 02/05/23 09:02 UA Protein 15 mg/dL Last Edit by [employer] on 02/05/23 09:02 UA pH 5.5 Last Edit by [employer] on 02/05/23 09:02 UA Blood 10 Andrea/uL Last Edit by [employer] on 02/05/23 09:02 UA Specific [place] 1.030 Last Edit by [employer] on 02/05/23 09:02 UA Ketone Negative Last Edit by [employer] on 02/05/23 09:02 UA Bilirubin 0 mg/dL Last Edit by [employer] on 02/05/23 09:02 UA Glucose 0 mg/dL Last Edit by [employer] on 02/05/23 09:02 Results Reviewed Results Reviewed: Laboratory Last Values Urine pH (Auto) 5.5 02/05/23 08:53 Specific [place] (Auto) 1.030 02/05/23 08:53 Urine Protein (Auto) 15 mg/dL 02/05/23 08:53 Glucose (UA)(Auto) 0 mg/dL 02/05/23 08:53 Urine Ketones (Auto) Negative 02/05/23 08:53 Urine Blood (Auto) 10 Andrea/uL 02/05/23 08:53 Urine Nitrite (Auto) Negative 02/05/23 08:53 Urine Bilirubin (Auto) 0 mg/dL 02/05/23 08:53 Urine Urobilinogen (Auto) 0.2 mg/dL 11/17/23 08:53 Leukocyte Esterase (Auto) 0 Alecia/uL 02/05/23 08:53 Assessment & Plan Assessment & Plan (1) Phimosis: Code(s): N47.1 - Phimosis Plan In office urinalysis results reviewed with the patient today; as noted above. Discussed referral to Dr. Almaraz for further assessment and evaluation Continue applying steroid cream as discussed Will refer Follow up in 3 months with PVR Orders: Orders AMB Urinalysis Automated Today Z13.9 - Encounter for screening, unspecified Patient Instructions: The patient had an opportunity to ask questions regarding the treatment plan. All questions were answered. Physical exam, labs, and imaging were discussed and reviewed in detail. As well as risks, benefits, and discussion of treatment choices. No major barriers to understanding were identified. The patient expressed understanding and agreement with the above treatment plan. The patient was made aware they should contact our office by phone for worsening of their current condition, the appearance of new symptoms, or with any questions or concerns. Compliance is encouraged with any medications and follow up testing that is ordered. It is a privilege to be allowed the opportunity to participate in? your urological care.? Again, if you have any questions or concerns If you have any questions or concerns please do not hesitate to contact me. The office is [phone]. This note is constructed using voice recognition software. While every effort has been made to ensure accuracy clinical care manager errors may have been included. Yours sincerely, MANOHAR Bright Coding Level of Care Code Est Pt Level 4 (40495) Diagnoses Phimosis N47.1 Time Spent (min) 35
== END 2023-02-05 09:29 | disposition home or self-care (01) ==
PROVIDERS: PCP Hospitalist; Visit Provider Nurse Practitioner Family
DX: N47.1 Phimosis (principal); Z13.9 Encounter for screening, unspecified
CPT/HCPCS: 99214

== ENCOUNTER → 2023-02-05 08:32 | Outpatient (BNVA) | payer BC, SELFPAY | PROVIDERS: PCP Hospitalist; Visit Provider Nurse Practitioner Family | DX: N47.1 Phimosis (principal); Z79.52 Long term (current) use of systemic steroids | CPT/HCPCS: 81003 ==

== ENCOUNTER 2023-03-27 07:14 | Outpatient (REF) | payer BC, SELFPAY | END 2023-03-27 07:15 | disposition home or self-care (01) | LOC: HO.LAB 07:14 | PROVIDERS: PCP Nurse Practitioner Family; Visit Provider Nurse Practitioner Family | DX: E78.6 Lipoprotein deficiency (principal); R74.01 Elevation of levels of liver transaminase levels | CPT/HCPCS: 36415; 80061; 80076 ==

== ENCOUNTER 2023-06-07 09:01 | Outpatient (AMB) | payer BC, SELFPAY ==
[2023-06-07 09:07] VITALS: BP 153/92; PULSE 84; RESP 14; TEMP 36.9; O2SAT 99; BMI 44.0
--- NOTE | 2023-06-07 09:07 | MHC.PC.OV ---
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: No Accompanied by: Self / Same As Patient Allergies No Known Allergies Allergy (Verified 06/07/23 09:21) Medication List - Last Reconciled 06/07/23 by Ray Logan CNP albuterol sulfate 90 mcg/actuation (ProAir HFA) 2 puffs inhalation Q4-6H PRN bisacodyl (Dulcolax (bisacodyl)) 20 mg (4 x 5 mg) PO ONCE 1 day dextroamphetamine-amphetamine 20 mg ER (Adderall XR) 40 mg (2 x 20 mg) PO QAM 30 days dorzolamide-timolol (PF) 2-0.5 % 1 drp ophthalmic (eye) BID losartan 50 mg PO DAILY 3 months losartan 25 mg PO DAILY 3 months metronidazole 1% (Metrogel) 1 ea topical DAILY 1 month pantoprazole 40 mg PO DAILY polyethylene glycol 3350 (Miralax) 238 grams PO ONCE PRN 1 day triamcinolone acetonide 0.1% 1 appl topical BID 30 days Tobacco use date assessed: 06/07/23 Dental Screening Dental Screen Date: 06/07/23 Did you have a dental visit in the last 12 months?: No Did you have a dental problem in the last 6 months where you did not have access to dental care?: No Was dental information given to patient?: Patient has dentist HPI HPI Comments History of Present Illness Details 57-year-old male presents for transfer of care His former PCP is NICKOLAS who is no longer with the practice He has history of asthma, hypertension, ADHD, prediabetes, morbid obesity, partial blindness of right eye, rosacea, and low HDL He admits to taking his medications as prescribed without adverse reactions He reports controlled ADHD symptoms on current regimen. No weight loss, loss of appetite, or sleep disturbances Requests minocycline for rosacea outbreak to his face. He is on metronidazole for prevention and minocycline has been effective for outbreaks He reports intermittent right-sided low back pain which has been ongoing for the past 2 months and has progressively gotten works. The pain is worst when standing up or walking; radiates to his right hip, buttock down to his knee. He describes the pain as sharp, no tingling or numbness. He has been taking Tylenol intermittent and applying warm compresses with short-term relief. He states that his last eye exam 04/2023. He goes to [facility]. He gets an eye exam every 4 months He notes that he has a colonoscopy scheduled for Jul, 2023 He states he has not been vaccinated for shingles He notes that he is up-to-date on the flu vaccine [facility] Medical History No pertinent past medical history Surgical History History of carpal tunnel release History of eye surgery Family History Father No problems noted. Mother Breast cancer Sister In good health Brother Heart problem Other Mental health disorder Social History Housing: House Patient Tobacco Use Status: Former Tobacco user e-Cigarette/Vaping Use: Never Used service: Yes Current occupational status: employed Current occupation: [employer] Cognitive needs: No Hearing needs: Yes Vision needs: No Questionnaire PHQ-9 Over the last 2 weeks, how often have you been bothered by any of the following problems? 1. Little interest or pleasure in doing things: not at all 2. Feeling down, depressed, or hopeless: not at all 3. Trouble falling or staying asleep, or sleeping too much: not at all 4. Feeling tired or having little energy: not at all 5. Poor appetite or overeating: not at all 6. Feeling bad about yourself - or that you are a failure or have let yourself or your family down: not at all 7. Trouble concentrating on things, such as reading the newspaper or watching television: not at all 8. Moving or speaking so slowly that other people could have noticed. Or the opposite - being so fidgety or restless that you have been moving around a lot more than usual: not at all 9. Thoughts that you would be better off or of hurting yourself in some way: not at all Total score: 0 Depression Screening Interpretation: Negative Depression Screening Done: Yes 59404 - PHQ-9 Billing: Yes Source: Developed by Drs. Cooper Kearney, Makayla Herbert, Christopher Araya and colleagues, with an educational marques from [employer]. Thrive Questionnaire Date Thrive assessed: 06/07/23 I am a: Patient What is your living situation today?: I have a steady place to live Within the past 12 months, did the food you bought not last and you didn't have the money to get more?: Never true Within the past 12 months, did you worry whether your food would run out before you got money to buy more?: Never true Do you have trouble paying for medicines?: No Do you have trouble getting transportation to medical appointments?: No Do you have trouble paying your heating and electricity bill?: No Do you have trouble taking care of your child, family member or friend?: No Do you have trouble with day-to-day activities such as bathing, preparing meals, shopping, managing finances, etc.?: No Are you currently unemployed and looking for a job?: No Are you interested in more education?: No Please select the resources that you would like help with: None Currently or been in a relationship where the following occur: no concerns reported THRIVE Score: 0 AUDIT C Alcohol Use Questionnaire (AUDIT-C) 1. How often do you have a drink containing alcohol?: Monthly or less 2. How many drinks containing alcohol do you have on a typical day when you are drinking?: 1 or 2 3. How often do you have six or more drinks on one occasion?: Never Total Score: 1 MG-7 AMB Questionnaire MG-7 Date MG - 7 assessed: 06/07/23 Feeling nervous, anxious, or on edge: 0 = Not at all Not being able to stop or control worryin = Not at all Worrying too much about different things: 0 = Not at all Trouble relaxin = Not at all Being so restless that it is hard to sit still: 0 = Not at all Becoming easily annoyed or irritable: 0 = Not at all Feeling afraid as if something awful might happen: 0 = Not at all Total MG-7 score (0-4 normal; 5-9 mild; 10-14 moderate; 15-21 severe): 0 Source: Developed by Drs. Cooper Kearney, Makayla Herbert, Christopher Araya and colleagues, with an educational marques from [employer]. MG-7 Assessment Billing MG-7 Assessment Tool: MG-7 Assessment 17853 ACT Questionnaire In the past 4 weeks, how much of the time did your asthma keep you from getting as much done at work, school or at home?: None of the time During the past 4 weeks, how often have you had shortness of breath?: 1-2 times a week During the past 4 weeks, how often did your asthma symptoms wake you up at night or earlier than usual in the morning?: Not at all During the past 4 weeks, how often have you had to use your rescue inhaler or nebulizer medication?: Not at all How would you rate your asthma control during the past 4 weeks?: Well controlled ACT Interpretation: Positive Score: 23 Review of Systems Const Details: Const Denies chills, Denies fatigue, Denies fever(s), Denies headache(s) and Denies weakness ENT Denies dizziness and Denies headache(s) Card Denies chest pain, Denies lightheadedness, Denies dyspnea and Denies other (Palpitations) Resp Denies cough, Denies dyspnea, Denies wheezing and Denies other ( shortness of breath) GI Denies abdominal pain, Denies melena, Denies hematochezia, Denies change in bowel habits, Denies dyspepsia and Denies nausea Denies hematuria and Denies dysuria Musc Reports as per HPI Skin/Breast Reports as per HPI Neuro Denies abnormal gait, Denies dizziness, Denies headache(s), Denies memory loss, Denies numbness, Denies Sensory deficit (Neuro), Denies tingling and Denies weakness Psych Denies anxiety, Denies depression, Denies memory loss Endo Denies cold intolerance, Denies fatigue, Denies heat intolerance, Denies polydipsia and Denies polyuria Aller/Immun Denies wheezing Physical exam (Primary Care) Vital Signs: Last Vital Signs Temp 98.4 F 06/07/23 09:07 Pulse 84 06/07/23 09:07 Resp 14 06/07/23 09:07 BP 120/90 H 06/07/23 09:26 Pulse Ox 99 06/07/23 09:07 Oxygen Delivery Method Room Air 06/07/23 09:07 BMI result Body Mass Index 44.0 Tobacco/Smoking Status: Tobacco use Status Tobacco use date assessed 06/07/23 06/07/23 09:18 Patient Tobacco Use Status Former Tobacco user 06/07/23 09:18 e-Cigarette/Vaping Use Never Used 06/07/23 09:18 PHQ-9: PHQ-9 Score PHQ-9: Total score 0 06/07/23 09:42 Depression Screening Interpretation: Negative Thrive Assessment: Date of Thrive Assessment Date Thrive assessed 06/07/23 06/07/23 09:18 Currently or been in a relationship where the following occur: no concerns reported Const Other: General: no acute distress and well developed Nutritional Appearance: well nourished Orientation/consciousness: patient oriented x3 HENMT Head: Yes normocephalic and Yes atraumatic Eyes General: appearance normal, both eyes and all related structures Pupils: Equal, round and reactive pupils present EOM: EOMs intact bilaterally Resp Effort & Inspection: normal respiratory effort Auscultation: clear to auscultation bilaterally Cardio Rate: regular rate Rhythm: regular rhythm Heart sounds: S1 normal heart sound present, S2 normal heart sound present, no gallops, no murmurs and no rubs GI Palpation (GI): No Abdominal aortic bruit present, Soft to palpation, nontender, No hepatosplenomegaly present and No Rebound tenderness present Auscultation: normal bowel sounds General: Yes no CVA tenderness Back/Spine/Pelvis Back: no CVA tenderness Cervical Spine: cervical ROM normal and No Cervical spine tenderness Thoracic/Lumbar Spine: thoraco-lumbar ROM normal, No pain with thoraco-lumbar ROM, No thoracic spinal tenderness and No lumbar spinal tenderness Extrem General: Yes normal to inspection, No edema and No calf tenderness Skin General: warm and dry. Normal skin color. Normal skin turgor Lesions: no lesions Rashes: Reddened skin and slightly raised rash noted to both cheeks, consistent with rosacea Trauma: no lacerations or abrasions Wounds: no wounds Nails: normal Neuro General: patient oriented x3, gait normal and no focal neuro deficit Cranial nerves: Yes Equal, round and reactive pupils present Cognition (Neuro): normal cognition Gait exam (Neuro): Normal gait present Sensory Exam: No Sensory deficit (Neuro) Psych Appearance: grossly normal Affect: normal affect Attitude: cooperative Thought process: Normal thought process present Assessment and Plan Assessment & Plan (1) Hypertension, essential: Code(s): I10 - Essential (primary) hypertension Plan: Resting blood pressure is 120/90, slightly above goal of less than 140/90 Continue current treatment regimen Low-sodium diet encouraged Follow-up in 1 month or return sooner with symptoms or concerns Verbalized understanding and agreed with treatment plan (2) ADHD: Code(s): F90.9 - Attention-deficit hyperactivity disorder, unspecified type Plan: Controlled Continue to take Adderall as prescribed Follow-up with symptoms or concerns Verbalized understanding and agreed with the treatment plan (3) Rosacea: Code(s): L71.9 - Rosacea, unspecified Plan: Reddened skin and slightly raised rash noted to both cheeks, consistent with rosacea Healthy exercise for stress reduction encouraged Advised to avoid prolonged sun exposure Minocycline ordered. Take as prescribed Continue to apply metronidazole as prescribed Follow-up with worsening or new signs and symptoms Verbalized understanding and agreed with treatment plan (4) Body mass index (BMI) of 40.1 to 44.9 in adult: Code(s): Z68.41 - Body mass index [BMI] 40.0-44.9, adult Plan: He currently weighs 333 lb, BMI is 44.0 He was initially referred to [facility] weight management. He states he was unable to start the program. However, he wished to be referred again Healthy diet and routine exercise encouraged Referred to [facility] weight management Follow-up with symptoms or concerns Verbalized understanding and agreed with the plan (5) Mild intermittent asthma: Code(s): J45.20 - Mild intermittent asthma, uncomplicated Plan: Controlled Use albuterol inhaler as prescribed (6) Low HDL (under 40): Code(s): E78.6 - Lipoprotein deficiency Plan: Recent HDL level is slightly improved from previous, 36. Previous HDL level was 34 Advised to limit foods high in saturated fat and avoid foods high trans fat Routine exercise encouraged Will continue to monitor Verbalized understanding and agreed with the plan (7) Right-sided low back pain with right-sided sciatica: Code(s): M54.41 - Lumbago with sciatica, right side Plan: Reports intermittent sharp right-sided low back pain which radiates to his right hip, buttock, and knee times 2 months No tenderness to palpation Naproxen ordered. Take as prescribed Warm/cold compresses encouraged Follow-up with worsening or new symptoms Follow-up with worsening or new symptoms Verbalized understanding and agreed with treatment plan (8) Pre-diabetes: Code(s): R73.03 - Prediabetes Plan: A1c today is 6.3%. Previous A1c was 5.8% Informed that his current A1c level is close to being a diabetic Healthy diet including low carbs such as rice, pasta, potatoes, and bread, encouraged Routine exercise encouraged Referred to [facility] weight management Will check A1c level in 3 months Follow-up with symptoms or concerns Verbalized understanding and agreed with treatment plan Orders: Referrals Medical Weight Management Referral Z68.41 - Body mass index [BMI] 40.0-44.9, adult Medications: New naproxen 500 mg PO BID PRN 60 tabs 2RF pain minocycline 100 mg PO BID 28 caps 0RF 2 weeks Coding Level of Care Code Est Pt Level 4 (94124) Diagnoses Hypertension, essential I10 ADHD F90.9 Rosacea L71.9 Body mass index (BMI) of 40.1 to 44.9 in adult Z68.41 Mild intermittent asthma J45.20 Low HDL (under 40) E78.6 Right-sided low back pain with right-sided sciatica M54.41 Pre-diabetes R73.03 Additional Codes MG-7 Assessment Billing - MG-7 Assessment Tool: MG-7 Assessment [id number] ([id number])
[2023-06-07 09:26] VITALS: BP 120/90
== END 2023-06-07 10:06 | disposition home or self-care (01) ==
PROVIDERS: PCP Hospitalist; Visit Provider Nurse Practitioner Family
DX: I10 Essential (primary) hypertension (principal); F90.9 Attention-deficit hyperactivity disorder, unspecified type; Z68.41 Body mass index [BMI] 40.0-44.9, adult; E66.01 Morbid (severe) obesity due to excess calories; R73.03 Prediabetes; L71.9 Rosacea, unspecified; J45.20 Mild intermittent asthma, uncomplicated; E78.6 Lipoprotein deficiency; M54.41 Lumbago with sciatica, right side
CPT/HCPCS: 83036; 99214

== ENCOUNTER → 2023-06-16 07:51 | Outpatient (BNVA) | payer BC, SELFPAY | PROVIDERS: PCP Nurse Practitioner Family; Visit Provider Surgery ==

== ENCOUNTER 2023-07-13 07:56 | Outpatient (AMB) | payer BC, SELFPAY ==
[2023-07-13 07:58] VITALS: BP 140/84; PULSE 98; RESP 15; TEMP 36.6; O2SAT 99; BMI 43.5
--- NOTE | 2023-07-13 07:58 | A.OFFPC_ITS ---
Vital Signs 07/13/23 07:58 Height 6 ft 2 in Weight 339 lb BMI 43.5 BP 140/84 H Blood Pressure Location Rt brachial Position Sitting Respiration 15 Pulse 98 Pulse Source Pulse Oximeter Temp 97.8 F Temp Source Temporal Artery Scan Pulse Oximetry (%) 99 Oxygen Delivery Method Room Air Intake Visit Reasons: 1 mth follow up Staffing Executive Required: No Accompanied by: Self / Same As Patient Allergies No Known Allergies Allergy (Verified 07/13/23 08:07) Medication List - Last Reconciled 07/13/23 by Ray Logan CNP albuterol sulfate 90 mcg/actuation (ProAir HFA) 2 puffs inhalation Q4-6H PRN bisacodyl (Dulcolax (bisacodyl)) 20 mg (4 x 5 mg) PO ONCE 1 day dextroamphetamine-amphetamine 20 mg ER (Adderall XR) 40 mg (2 x 20 mg) PO QAM 30 days dorzolamide-timolol (PF) 2-0.5 % 1 drp ophthalmic (eye) BID losartan 25 mg PO DAILY 3 months losartan 50 mg PO DAILY 3 months metronidazole 1% (Metrogel) 1 ea topical DAILY 1 month naproxen 500 mg PO BID PRN polyethylene glycol 3350 (Miralax) 238 grams PO ONCE PRN 1 day triamcinolone acetonide 0.1% 1 appl topical BID 30 days Tobacco use date assessed: 06/07/23 Dental Screening Dental Screen Date: 06/07/23 HPI HPI Comments History of Present Illness0 Details 57-year-old male presents for hypertensi on follow-up He admits to taking his medications as prescribed without adverse reactions. He notes that he has not taking his Losartan since he ran out of the medication on Wednesday. He was busy with a meeting and has not been able to pecan picker the medication from the pharmacy. He plans on picking up the medication today He reports continued low back pain and notes naproxen is not effective. The pain is worse when standing up or walking, radiates to his right hip, buttock, and knee. He describes the pain as sharp, no tingling or numbness She reports controlled ADHD symptoms on current treatment regimen She has an appointment with weight management tomorrow to explore weight loss options FORMERLY [facility], [facility] Medical History No pertinent past medical history Surgical History History of carpal tunnel release History of eye surgery Family History Father No problems noted. Mother Breast cancer Sister In good health Brother Heart problem Other Mental health disorder Social History (Updated 07/13/23 @ 08:05 by JERZY Ley) Household Members: Spouse Housing: House Patient Tobacco Use Status: Former Tobacco user e-Cigarette/Vaping Use: Never Used service: Yes Current occupational status: employed Current occupation: [employer] Cognitive needs: No Hearing needs: No Vision needs: No Questionnaire PHQ-9 Over the last 2 weeks, how often have you been bothered by any of the following problems? 1. Little interest or pleasure in doing things: several days 2. Feeling down, depressed, or hopeless: several days 3. Trouble falling or staying asleep, or sleeping too much: more than half the days 4. Feeling tired or having little energy: several days 5. Poor appetite or overeating: not at all 6. Feeling bad about yourself - or that you are a failure or have let yourself or your family down: not at all 7. Trouble concentrating on things, such as reading the newspaper or watching television: more than half the days 8. Moving or speaking so slowly that other people could have noticed. Or the opposite - being so fidgety or restless that you have been moving around a lot more than usual: not at all 9. Thoughts that you would be better off or of hurting yourself in some way: not at all Total score: 7 Depression Screening Interpretation: Negative Depression Screening Done: Yes [id number] - PHQ-9 Billing: Yes Source: Developed by Drs. Cooper Kearney, Makayla Herbert, Christopher Araya and colleagues, with an educational marques from [employer]. Thrive Questionnaire Date Thrive assessed: 06/07/23 MG-7 AMB Questionnaire MG-7 Date MG - 7 assessed: 07/13/23 Feeling nervous, anxious, or on edge: 1 = Several days Not being able to stop or control worryin = Several days Worrying too much about different things: 0 = Not at all Trouble relaxin = Several days Being so restless that it is hard to sit still: 0 = Not at all Becoming easily annoyed or irritable: 2 = More than half the days Feeling afraid as if something awful might happen: 1 = Several days Total MG-7 score (0-4 normal; 5-9 mild; 10-14 moderate; 15-21 severe): 6 Source: Developed by Drs. Cooper Kearney, Makayla Herbert, Christopher Araya and colleagues, with an educational marques from [employer]. MG-7 Assessment Billing MG-7 Assessment Tool: MG-7 Assessment 21697 Review of Systems Const Details: Const Denies chills, Denies fatigue, Denies fever(s), Denies headache(s) and Denies weakness ENT Denies dizziness and Denies headache(s) Card Denies chest pain, Denies lightheadedness, Denies dyspnea and Denies other (Palpitations) Resp Denies cough, Denies dyspnea, Denies wheezing and Denies other ( shortness of breath) GI Denies abdominal pain, Denies melena, Denies hematochezia, Denies change in bowel habits, Denies dyspepsia and Denies nausea Denies hematuria and Denies dysuria Musc Reports as per HPI Skin/Breast Denies rash, Denies unusual bruising and Denies wounds Neuro Denies abnormal gait, Denies dizziness, Denies headache(s), Denies memory loss, Denies numbness, Denies Sensory deficit (Neuro), Denies tingling and Denies weakness Psych Denies anxiety, Denies depression, Denies memory loss Endo Denies cold intolerance, Denies fatigue, Denies heat intolerance, Denies polydipsia and Denies polyuria Aller/Immun Denies wheezing Physical exam (Primary Care) Vital Signs: Last Vital Signs Temp 97.8 F 07/13/23 07:58 Pulse 98 07/13/23 07:58 Resp 15 07/13/23 07:58 BP 140/84 H 07/13/23 07:58 Pulse Ox 99 07/13/23 07:58 Oxygen Delivery Method Room Air 07/13/23 07:58 BMI result Body Mass Index 43.5 Tobacco/Smoking Status: Tobacco use Status Tobacco use date assessed 06/07/23 07/13/23 08:05 Patient Tobacco Use Status Former Tobacco user 07/13/23 08:05 e-Cigarette/Vaping Use Never Used 07/13/23 08:05 PHQ-9: PHQ-9 Score PHQ-9: Total score 7 07/13/23 08:08 Depression Screening Interpretation: Negative Thrive Assessment: Date of Thrive Assessment Date Thrive assessed 06/07/23 07/13/23 08:05 Const Other: General: no acute distress and well developed Nutritional Appearance: well nourished Orientation/consciousness: patient oriented x3 HENMT Head: Yes normocephalic and Yes atraumatic Eyes General: appearance normal, both eyes and all related structures Pupils: Equal, round and reactive pupils present EOM: EOMs intact bilaterally Resp Effort & Inspection: normal respiratory effort Auscultation: clear to auscultation bilaterally Cardio Rate: regular rate Rhythm: regular rhythm Heart sounds: S1 normal heart sound present, S2 normal heart sound present, no gallops, no murmurs and no rubs GI Palpation (GI): No Abdominal aortic bruit present, Soft to palpation, nontender, No hepatosplenomegaly present and No Rebound tenderness present Auscultation: normal bowel sounds General: Yes no CVA tenderness Back/Spine/Pelvis Back: no CVA tenderness Cervical Spine: cervical ROM normal and No Cervical spine tenderness Thoracic/Lumbar Spine: thoraco-lumbar ROM normal, No pain with thoraco-lumbar ROM, No thoracic spinal tenderness and No lumbar spinal tenderness Extrem General: Yes normal to inspection, No edema and No calf tenderness Skin General: warm and dry. Normal skin color. Normal skin turgor Neuro General: patient oriented x3, gait normal and no focal neuro deficit Cranial nerves: Yes Equal, round and reactive pupils present Cognition (Neuro): normal cognition Gait exam (Neuro): Normal gait present Sensory Exam: No Sensory deficit (Neuro) Psych Appearance: grossly normal Affect: normal affect Attitude: cooperative Thought process: Normal thought process present Assessment and Plan Assessment & Plan (1) Hypertension, essential: Code(s): I10 - Essential (primary) hypertension Plan: Resting blood pressure is 140/84, slightly above goal of less than 140/90 Continue with current treatment regimen Instructed on importance of taking his medications as prescribed to avoid missing dose. May request refill a week ahead Low-sodium diet encouraged Follow-up in 2 months for hypertension and ADHD or return sooner with symptoms or concerns Verbalized understanding and agreed with treatment plan (2) Right-sided low back pain with right-sided sciatica: Code(s): M54.41 - Lumbago with sciatica, right side Plan: Intermittent sharp right-sided low back pain which radiates to his right hip, buttock, and knee x 2 months No tenderness to palpation Negative straight leg raise Gabapentin 300 mg every night ordered. Take as prescribed Continue to take naproxen as prescribed Warm/cold compresses encouraged Declines referral to PT Follow-up with worsening or new symptoms Verbalized understanding and agreed with treatment plan Medications: New gabapentin 300 mg PO BEDTIME 30 caps 3RF 30 days Coding Level of Care Code Est Pt Level 4 (75347) Complex EM visit Add On G2211 Diagnoses Hypertension, essential I10 Right-sided low back pain with right-sided sciatica M54.41 Additional Codes MG-7 Assessment Billing - MG-7 Assessment Tool: MG-7 Assessment 24441 ([id number])
== END 2023-07-13 08:25 | disposition home or self-care (01) ==
PROVIDERS: PCP Nurse Practitioner Family; Visit Provider Nurse Practitioner Family
DX: I10 Essential (primary) hypertension (principal); M54.41 Lumbago with sciatica, right side
CPT/HCPCS: 99214; G2211

== ENCOUNTER 2023-07-23 08:52 | Outpatient (AMB) | payer BC, SELFPAY ==
[2023-07-23 09:06] VITALS: BP 133/73; PULSE 88; TEMP 36.2; O2SAT 96; BMI 42.5
--- NOTE | 2023-07-23 09:06 | A.OFFVIS_ITS ---
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 42.1 In Process Inspector Required: No Allergies No Known Allergies Allergy (Verified 07/23/23 09:10) Medication List - Last Reconciled 07/23/23 by SHAKIR Huntley albuterol sulfate 90 mcg/actuation (ProAir HFA) 2 puffs inhalation Q4-6H PRN bisacodyl (Dulcolax (bisacodyl)) 20 mg (4 x 5 mg) PO ONCE 1 day dextroamphetamine-amphetamine 20 mg ER (Adderall XR) 40 mg (2 x 20 mg) PO QAM 30 days dorzolamide-timolol (PF) 2-0.5 % 1 drp ophthalmic (eye) BID gabapentin 300 mg PO BEDTIME 30 days losartan 25 mg PO DAILY 3 months losartan 50 mg PO DAILY 3 months metronidazole 1% (Metrogel) 1 ea topical DAILY 1 month naproxen 500 mg PO BID PRN polyethylene glycol 3350 (Miralax) 238 grams PO ONCE PRN 1 day triamcinolone acetonide 0.1% 1 appl topical BID 30 days HPI Comments Details: Pt is here to start the [facility] [place] [facility] [place] program. He heard about hour program from his PCP. His goal is to lose weight and achieve a healthy lifestyle as well as to improve, if not resolve, obesity related medical conditions, including juan, htn. He reports first being concerned about his weight 30-35 years ago, highest weight to date was 331.2. Weight upon initial presentation to the [facility] on 06/16/23 was 327.4 pounds with a BMI of 42.1. Current weight is 331.2 pounds with a BMI of 42.5. He has tried multiple methods of weight loss including fad diets without permanent results. He lives with his and dog. 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 He wakes at:?5 am, and goes to bed at?9 pm. Dinner is at 6pm. Breakfast: breakfast sandwich, toast, 3 egg omlet w ham and cheese, donuts, iced coffee w cream no sugar AM snack: cheese and crackers, nuts, cookies, cashews Lunch: leftovers, sandwich, chips, cookies PM snack: cookies, chips, cupcake Dinner: shephards pie, pasta, icelandic food, perogie, keilbasa, After dinner: ice cream, cookies Other snacks: as above Liquids: diet pepsi and fresca, 60 oz daily and 1 liter at night Alcohol/marijuana/tobacco intake: 1 beer per week, no cannabis, one cigar per week Exercise: none, elliptical at home, weights. GERD score: 0 BISHOP score: 2 ESS score: 6 QOL score: 115 PFS Medical History No pertinent past medical history Surgical History History of carpal tunnel release History of eye surgery Family History Father No problems noted. 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 [employer] Current Cognitive needs: No Hearing needs: No Vision needs: No Physical Exam Const General: cooperative, healthy appearing and no acute distress Orientation/consciousness: patient oriented x3 HEENT Head: Yes normal to inspection Ears: hearing grossly normal bilaterally General nose exam: Normal external nose present Face and sinus: Yes normal facial exam Eyes General: appearance normal, both eyes and all related structures Pupils: Other pupil findings (sluggish reactionary right pupil) Resp Effort & Inspection: normal respiratory effort Auscultation: clear to auscultation bilaterally Cardio Rate: regular rate Rhythm: regular rhythm Heart sounds: S1 normal heart sound present and S2 normal heart sound present GI Inspection: Yes normal to inspection, No distended and Yes obesity Palpation (GI): Soft to palpation, nontender and no guarding Auscultation: normal bowel sounds Skin General skin exam: no rashes or lesions noted Neuro General: patient oriented x3 Extrem General: No edema Psych Appearance: grossly normal Mental Status: mental status grossly normal Speech and movement: Normal speech and movement present Affect: normal affect Attitude: cooperative Assessment & Plan Assessment & Plan (1) Morbid obesity with BMI of 40.0-44.9, adult: Code(s): E66.01 - Morbid (severe) obesity due to excess calories; Z68.41 - Body mass index [BMI] 40.0-44.9, adult Category: Medical Plan: This is a?57 yo male who will start our SWL program to prepare for bariatric surgery.? Blood work, h pylori , CXR, ECG, Abd US and UGI have been ordered. He is being scheduled for initial consultations. He will start SWL classes and watch the first three videos before his next appointment. ? Adequate sleep of 7-8 hours per night discussed, awakening at 5 am and going to bed around 9 pm ? You had mentioned that you already have a body composition scale so be sure and check weight weekly. The best time to do this is first thing in the morning after going to the bathroom. 1. Nutritional counseling: Be sure to careful read the number of scoops per shake Start with 2 Celebrate Rebuild shakes ([facility] [employer], [email or web address], [employer]), (2 scoops in 12 oz unsweetened almond or oat milk) First shake at 6am-8am, Second shake at 9am-11am 2 protein bars (Celebrate bars at [facility] [employer], [email or web address], [employer]) First bar at 12pm-2pm. Second bar at 3pm-5pm Dinner at 6pm (12 forks of protein and 12 forks of salad/vegetables). Meal to include lean meat (beef, fish, pork, turkey, chicken), cooked vegetables or a salad with olive oil and/or fruits (berries, pears, apples, kiwi). Avoid salt, breads, potatoes, rice, pasta, desserts. May have fresh fruit after dinner if you wish (berries-straw, blue, black, rasp), apple, pear, kiwi, orange Try to drink 64 oz of water daily and avoid soda and juices. ?2. Each shake would be drunk slowly, like coffee in a period of 2 hours. ?3. Cut each bar in 4 pieces and eat each piece in 30 min ?to make each bar last 2 hours. ?4. I emphasized the importance of measuring accurately the food portion and measure it carefully when serving the food on the plate ?5. The meal portions include 12 full-size forks of meat and 12 full-size forks of salad. You always eat the meat portion but you can replace up to half of the forks of salad/vegetables with rice, potatoes or pasta, or a fruit ?if you like. The less you do it the better weight loss will be. ?6. One full-size fork is what can be scooped on the fork without falling aside and not what can be bit with the fork. Use regular forks like those you find in a typical restaurant. ?7.? Please send me weight measurements as soon as possible and then once a week. Always include your diet and exercise plan. Alternatively come weekly at the office for weight checks and send me the measurements. ?8. Exercise counseling: Begin by watching a stretching for beginners video. Start slowly and begin to stretch your muscles. You should do this before and after each exercise session to prevent injury. Please use the gym you have access to at your work and use the elliptical at home when not working. Ask the security systems manager or one of the trainers how to use the machines if you are unfamiliar with them. Start elliptical with a resistance of 2. Increase resistance by 1 every 3 min to your most comfortable resistance with a max resistance of 8. Reduce the resistance by 1 every 3 minutes back down to 2 and repeat cycles for 300 calories. Alternatively, start treadmill with a speed of 3.0 and incline of 0, increasing incline by 1 every 3 minutes to the highest comfortable level (max 6 for now) then decrease in the same fashion. Repeat process to a goal of 300 calories. Goal of 2000 calories burned or more weekly. You may also consider use of the stationary bike. The easiest would be to chose the fat-burn or interval training program on the machine and do this until you reach the 300 calorie goal. Alternatively, you can manually adjust the resistance in a similar fashion as mentioned above, (resistance of 2-8 with a goal speed of 12 mph). Tracking calories is essential. 9. Alternatively start walking outside daily, tracking calories with a goal of 300 calories per day, daily. You can download the [employer]line TATE'S LIST which can track your time, distance and calories while walking outside. You press start in the merline when you start and then stop when you are finished. 10.? It is important to communicate by text weekly 11. Please get labs, EKG and chest X-Ray within 1 week. 12. Discussed and answered all questions regarding?obtained consent to participate in the [facility]?Registry. 13. Please follow the diet plan exactly, without any change. If you do not like something about the plan or you feel hungry, you need to communicate with me so I can help you revise the plan. You should not change the plan yourself. Text me at [phone] 14. Goal is to lose at least 12 pounds in the first month 15. Goal is to lose 10% of your weight before surgery, which is about 33 lbs. Ultimate weight goal: 298 lbs before surgery Patient is morbidly obese and is not considered stable at this time.?I spent a total of 70 minutes reviewing/updating records, examining the patient and counseling the patient on weight management as detailed above. Orders: Orders Hemoglobin A1c Today E66.01 - Morbid (severe) obesity due to excess calories, G47.33 - Obstructive sleep apnea (adult) (pediatric), I10 - Essential (primary) hypertension, R74.01 - Elevation of levels of liver transaminase levels, Z68.41 - Body mass index [BMI] 40.0-44.9, adult H Pylori Breath Test Today E66.01 - Morbid (severe) obesity due to excess calories, G47.33 - Obstructive sleep apnea (adult) (pediatric), I10 - Essential (primary) hypertension, R74.01 - Elevation of levels of liver transaminase levels, Z68.41 - Body mass index [BMI] 40.0-44.9, adult Complete Blood Count Auto Diff Today E66.01 - Morbid (severe) obesity due to excess calories, G47.33 - Obstructive sleep apnea (adult) (pediatric), I10 - Essential (primary) hypertension, R74.01 - Elevation of levels of liver transaminase levels, Z68.41 - Body mass index [BMI] 40.0-44.9, adult IRON PROFILE Today E66.01 - Morbid (severe) obesity due to excess calories, G47.33 - Obstructive sleep apnea (adult) (pediatric), I10 - Essential (primary) hypertension, R74.01 - Elevation of levels of liver transaminase levels, Z68.41 - Body mass index [BMI] 40.0-44.9, adult Vitamin B12 and Folate Today E66.01 - Morbid (severe) obesity due to excess calories, G47.33 - Obstructive sleep apnea (adult) (pediatric), I10 - Essential (primary) hypertension, R74.01 - Elevation of levels of liver transaminase levels, Z68.41 - Body mass index [BMI] 40.0-44.9, adult C Reactive Protein Today E66.01 - Morbid (severe) obesity due to excess calories, G47.33 - Obstructive sleep apnea (adult) (pediatric), I10 - Essential (primary) hypertension, R74.01 - Elevation of levels of liver transaminase levels, Z68.41 - Body mass index [BMI] 40.0-44.9, adult Vitamin B1 Today E66.01 - Morbid (severe) obesity due to excess calories, G47.33 - Obstructive sleep apnea (adult) (pediatric), I10 - Essential (primary) hypertension, R74.01 - Elevation of levels of liver transaminase levels, Z68.41 - Body mass index [BMI] 40.0-44.9, adult TSH reflex Free T4 Today E66.01 - Morbid (severe) obesity due to excess calories, G47.33 - Obstructive sleep apnea (adult) (pediatric), I10 - Essential (primary) hypertension, R74.01 - Elevation of levels of liver transaminase levels, Z68.41 - Body mass index [BMI] 40.0-44.9, adult XR chest 2V Today E66.01 - Morbid (severe) obesity due to excess calories, G47.33 - Obstructive sleep apnea (adult) (pediatric), I10 - Essential (primary) hypertension, R74.01 - Elevation of levels of liver transaminase levels, Z68.41 - Body mass index [BMI] 40.0-44.9, adult ECG 12 lead EKG Today E66.01 - Morbid (severe) obesity due to excess calories, G47.33 - Obstructive sleep apnea (adult) (pediatric), I10 - Essential (primary) hypertension, R74.01 - Elevation of levels of liver transaminase levels, Z68.41 - Body mass index [BMI] 40.0-44.9, adult Insulin Today E66.01 - Morbid (severe) obesity due to excess calories, G47.33 - Obstructive sleep apnea (adult) (pediatric), I10 - Essential (primary) hypertension, R74.01 - Elevation of levels of liver transaminase levels, Z68.41 - Body mass index [BMI] 40.0-44.9, adult Lipid Panel Today E66.01 - Morbid (severe) obesity due to excess calories, G47.33 - Obstructive sleep apnea (adult) (pediatric), I10 - Essential (primary) hypertension, R74.01 - Elevation of levels of liver transaminase levels, Z68.41 - Body mass index [BMI] 40.0-44.9, adult Comprehensive Met. Panel Today E66.01 - Morbid (severe) obesity due to excess calories, G47.33 - Obstructive sleep apnea (adult) (pediatric), I10 - Essential (primary) hypertension, R74.01 - Elevation of levels of liver transaminase levels, Z68.41 - Body mass index [BMI] 40.0-44.9, adult Zinc Today E66.01 - Morbid (severe) obesity due to excess calories, G47.33 - Obstructive sleep apnea (adult) (pediatric), I10 - Essential (primary) hypertension, R74.01 - Elevation of levels of liver transaminase levels, Z68.41 - Body mass index [BMI] 40.0-44.9, adult Vitamin A Today E66.01 - Morbid (severe) obesity due to excess calories, G47.33 - Obstructive sleep apnea (adult) (pediatric), I10 - Essential (primary) hypertension, R74.01 - Elevation of levels of liver transaminase levels, Z68.41 - Body mass index [BMI] 40.0-44.9, adult Ferritin Today E66.01 - Morbid (severe) obesity due to excess calories, G47.33 - Obstructive sleep apnea (adult) (pediatric), I10 - Essential (primary) hypertension, R74.01 - Elevation of levels of liver transaminase levels, Z68.41 - Body mass index [BMI] 40.0-44.9, adult Vitamin D 25-OH Total Today E66.01 - Morbid (severe) obesity due to excess calories, G47.33 - Obstructive sleep apnea (adult) (pediatric), I10 - Essential (primary) hypertension, R74.01 - Elevation of levels of liver transaminase levels, Z68.41 - Body mass index [BMI] 40.0-44.9, adult US abdomen comp w elastography Today E66.01 - Morbid (severe) obesity due to excess calories, G47.33 - Obstructive sleep apnea (adult) (pediatric), I10 - Essential (primary) hypertension, R74.01 - Elevation of levels of liver transaminase levels, Z68.41 - Body mass index [BMI] 40.0-44.9, adult FL upper GI w air Today E66.01 - Morbid (severe) obesity due to excess calories, G47.33 - Obstructive sleep apnea (adult) (pediatric), I10 - Essential (primary) hypertension, R74.01 - Elevation of levels of liver transaminase levels, Z68.41 - Body mass index [BMI] 40.0-44.9, adult Referrals Behavioral Health Referral E66.01 - Morbid (severe) obesity due to excess calories, G47.33 - Obstructive sleep apnea (adult) (pediatric), I10 - Essential (primary) hypertension, R74.01 - Elevation of levels of liver transaminase levels, Z68.41 - Body mass index [BMI] 40.0-44.9, adult Nutrition/Dietitian Referral E66.01 - Morbid (severe) obesity due to excess calories, G47.33 - Obstructive sleep apnea (adult) (pediatric), I10 - Essential (primary) hypertension, R74.01 - Elevation of levels of liver transaminase levels, Z68.41 - Body mass index [BMI] 40.0-44.9, adult
== END 2023-07-23 10:36 | disposition home or self-care (01) ==
PROVIDERS: PCP Nurse Practitioner Family; Visit Provider Physician Assistant Surgical
DX: E66.01 Morbid (severe) obesity due to excess calories (principal); Z68.41 Body mass index [BMI] 40.0-44.9, adult
CPT/HCPCS: 99205; 99215

== ENCOUNTER → 2023-07-23 08:52 | Outpatient (BNVA) | payer BC, SELFPAY | PROVIDERS: PCP Nurse Practitioner Family; Visit Provider Physician Assistant Surgical ==

== ENCOUNTER 2023-07-30 07:48 | Day surgery (SDC) | payer BC, SELFPAY ==
--- NOTE | 2023-07-28 15:17 | P.CONAN_ITS ---
Documented by User: Maggie Nicholson NP 07/28/23 15:18 HPI - Anesthesia Eval Consult details Narrative: 57yo M for Colonoscopy [facility] Active Problems Active Problems: All Active Problems ALEXA (obstructive sleep apnea) (Acute) Right-sided low back pain with right-sided sciatica (Acute) Vaccine counseling (Acute) Colon cancer screening (Acute) Pre-diabetes (Acute) Morbid obesity with BMI of 40.0-44.9, adult (Acute) Normal physical examination, routine (Acute) Low HDL (under 40) (Acute) Elevated ALT measurement (Acute) Elevated fasting glucose (Acute) Phimosis (Acute) Mild intermittent asthma (Acute) Blind right eye (Acute) Body mass index (BMI) of 40.1 to 44.9 in adult (Acute) Normal physical exam (Acute) Rosacea (Acute) Mild persistent asthma, uncomplicated (Acute) Foot pain, bilateral (Acute) ADHD (Acute) Hypertension, essential (Acute) Past Medical History Medical History (Updated 07/28/23 @ 15:18 by Maggie Nicholson NP) Hypertension, essential ADHD Mild intermittent asthma ALEXA (obstructive sleep apnea) Family History Family History Father No problems noted. Mother Breast cancer Sister In good health Brother Heart problem Other Mental health disorder Surgical History Surgical History History of carpal tunnel release History of eye surgery Social History Social History Household Members: Spouse Housing: House Patient Tobacco Use Status: Former Tobacco user Tobacco use type: Cigar e-Cigarette/Vaping Use: Never Used Are you DNR?: No Advance Directives: No Advance Directives Information Provided: Yes Nutrition Risks: No Nutritional Risk service: Yes Current occupational status: employed Current occupation: [employer] Cognitive needs: No Hearing needs: No Vision needs: No Meds Allergies Allergy/AdvReac Type Severity Reaction Status Date / Time No Known Allergies Allergy Verified 07/23/23 09:10 Home Medications ?Medication ?Instructions ?Recorded ?Confirmed ?Last Taken ?Type dorzolamide 2 %-timolol 0.5 % (PF) 1 drp ophthalmic (eye) BID 06/07/23 07/23/23 Unknown History eye drops Assessment and Plan Assessment Anesthesia Assessment: Chart Reviewed Documented by User: Naz Ledbetter MD 07/30/23 09:21 [facility] Past Medical History Medical History (Updated 07/28/23 @ 15:18 by Maggie Nicholson NP) Hypertension, essential ADHD Mild intermittent asthma ALEXA (obstructive sleep apnea) Family History Family History Father No problems noted. Mother Breast cancer Sister In good health Brother Heart problem Other Mental health disorder Family history of problems with anesthesia: No Surgical History Surgical History History of carpal tunnel release History of eye surgery History of Problems with Anesthesia: No Social History Social History Household Members: Spouse Housing: House Patient Tobacco Use Status: Former Tobacco user Tobacco use type: Cigar e-Cigarette/Vaping Use: Never Used Are you DNR?: No Advance Directives: No Advance Directives Information Provided: Yes Nutrition Risks: No Nutritional Risk service: Yes Current occupational status: employed Current occupation: [employer] Cognitive needs: No Hearing needs: No Vision needs: No Meds Allergies Allergy/AdvReac Type Severity Reaction Status Date / Time No Known Allergies Allergy Verified 07/23/23 09:10 Home Medications ?Medication ?Instructions ?Recorded ?Confirmed ?Last Taken ?Type dorzolamide 2 %-timolol 0.5 % (PF) 1 drp ophthalmic (eye) BID 06/07/23 07/23/23 Unknown History eye drops Exam Airway Mallampati Class: III TM Dist: >3cm Neck ROM: Full Heart: rrr Lungs: cta Assessment and Plan Assessment Anesthesia Assessment: Anesthesia Plan Discussed Final Anesthetic Review Family History of Problems with Anesthesia: No History of Problems with Anesthesia: No NPO: Yes ASA Class: III Final Preanesthetic Review: No Changes in Pt Med Stat, Meds/Allgs Chart Reviewed and Consent Obtained/Reviewed Patient Risk: Intermediate Procedure Risk: Low Anesthetic Plan Anesthetic Plan: MAC: Disposition: Standard PACU
--- NOTE | 2023-07-30 07:49 | MHC.SHP ---
Pre-Procedural Eval Section A - 24 Hr Update-Section A only Date of Service: 07/30/23 The patient is an INPATIENT: No The patient has been examined within 24 hours of the surgical procedure. The History & Physical has been completed within 30 days and I have reviewed it.: No Section B - Complete if H&P > 30 days Chief Complaint: Colon cancer screening Relevant Family History (Specify if Yes): No Relevant Social History: Tobacco Use (Former smoker) Present Medications: see Short Stay Collaborative assessment Medical History: Significant History (Hypertension, ADHD, asthma, sleep apnea) History of Previous Operations: Relevant previous surgery/procedure and date(s) (History of carpal tunnel release History of eye surgery) Allergies: Allergies Allergy/AdvReac Type Severity Reaction Status Date / Time No Known Allergies Allergy Verified 07/23/23 09:10 Review of Systems Sugical H&P ROS: Negative: Constitution, Cardiovascular, Respiratory and Gastrointestinal Exam Surgical H&P Exam: Normal: Heart, Normal: Lungs, Normal: Extremities and Normal: Abdomen Plan Diagnosis/Plan: Unchanged I have reviewed the history and physical and performed a pertinent physical examination on my patient. No changes have occurred unless specified. Time Spent With Patient Time: Total time managing care of this patient today ____ minutes.
[2023-07-30 08:01] VITALS: BP 140/58; PULSE 69; RESP 20; TEMP 36.5; O2SAT 98; BMI 42.9
[2023-07-30] MEDS: Lactated Ringers 1,000 ML 100 ML IVCONT (08:24)
--- NOTE | 2023-07-30 09:27 | HO.OPN-COLON ---
Colonoscopy Operative Note Operative Note Date of Service: 07/30/23 Narrative: COLONOSCOPY TILL CECUM WITH BIOPSIES AND SNARE POLYPECTOMY Pre-op diagnosis: Colon cancer screening (First colonoscopy). Post-op diagnosis:? Colon polyps, Diverticulosis, hemorrhoids Endoscopist:? Bernadette Cervantes MD Anesthesia:?MAC Consent: Indications for the procedure and potential complications of bleeding, perforation, reaction to medications and missed diagnosis were discussed with the patient and informed consent was obtained. Instrument: Olympus CF H 190 L variable stiffness adult colonoscope Monitoring: Vital signs and clinical assessment, intermittent blood pressure monitoring, continuous EKG monitoring, Pulse oximetry and Carbon Dioxide monitoring were done throughout the procedure. Please see anesthesia flowsheet. Colon withdrawl time was 21 minutes. Procedure: The patient was placed in the left lateral decubitis position and pre-procedure medications were administered. After a digital rectal examination of the ano-rectum, the video colonoscope was inserted into the rectum and advanced through the colon to the cecum. The colonoscope was slowly withdrawn in a retrograde panoramic fashion and the colon mucosa was carefully examined including a retroflexed view of the rectum. Findings and interventions are described below. Procedure Difficulty: without difficulty Findings: Terminal Ileum: Not evaluated Cecum: Normal Ascending Colon: Two 8-9 mm sessile polyps (one in the proximal and 2nd in the distal AC) - removed with a cold snare Transverse Colon: Normal Descending Colon: Moderate diverticulosis Sigmoid Colon: Focal area of erythematous folds surrounding a diverticulum at 35 cms - biopsies were obtained. Moderate diverticulosis Rectum: A 5-6 mm sessile polyp in the distal rectum - removed with a cold snare Ano-rectum: Moderate internal hemorrhoids Colon preparation: Good after copious irrigation. [place] Bowel Preparation Scale Right colon; 2 Transverse colon: 2 Left colon; 2 (0 = Unprepared colon segment with mucosa not seen due to solid stool that cannot be cleared. 1 = Portion of mucosa of the colon segment seen, but other areas of the colon segment not well seen due to staining, residual stool and/or opaque liquid. 2 = Minor amount of residual staining, small fragments of stool and/or opaque liquid, but mucosa of colon segment seen well. 3 = Entire mucosa of colon segment seen well with no residual staining, small fragments of stool or opaque liquid) Impression and Post Procedure Diagnosis: Colonoscopy Findings: Three small polyps were removed Moderate diverticulosis seen in the left colon Moderate hemorrhoids on retroflexed exam. Plan: Pt has a FU appointment on 08/12/23 with SHAKIR Huang Repeat Colonoscopy in 3-5 years if polyps are adenomatous and 10 year if polyps are hyperplastic. Above findings were reviewed with the patient and relevant handouts were given and the discharge area.
[2023-07-30 10:06] VITALS: BP 112/83; PULSE 65; RESP 16; TEMP 36.4; O2SAT 97
[2023-07-30 10:21] VITALS: BP 110/58; PULSE 60; RESP 16; TEMP 36.4; O2SAT 99
== END 2023-07-30 10:45 | disposition home or self-care (01) ==
PROVIDERS: PCP Nurse Practitioner Family; Visit Provider Internal Medicine Gastroenterology
PROC: 0DJD8ZZ Inspection of Lower Intestinal Tract, Via Natural or Artificial Opening Endoscopic (ICD-10-PCS; CPT 45378; principal; 2023-07-30 09:20)
DX: Z12.11 Encounter for screening for malignant neoplasm of colon (principal); D12.2 Benign neoplasm of ascending colon; K62.1 Rectal polyp; K52.9 Noninfective gastroenteritis and colitis, unspecified; K57.30 Diverticulosis of large intestine without perforation or abscess without bleeding; K64.8 Other hemorrhoids; I10 Essential (primary) hypertension; J45.909 Unspecified asthma, uncomplicated
CPT/HCPCS: 45385; 45380; 88305; J2704

== ENCOUNTER → 2023-07-30 07:48 | Outpatient (BNV) | payer BC, SELFPAY | PROVIDERS: PCP Nurse Practitioner Family; Visit Provider Internal Medicine Gastroenterology | DX: Z12.11 Encounter for screening for malignant neoplasm of colon (principal); D12.2 Benign neoplasm of ascending colon; K57.30 Diverticulosis of large intestine without perforation or abscess without bleeding; K64.8 Other hemorrhoids | CPT/HCPCS: 45380; 45385 ==

== ENCOUNTER 2023-08-07 07:16 | Outpatient (REF) | payer BC, SELFPAY ==
[2023-08-07 07:32] LABS: MANUAL DIFF FLAG NO
[2023-08-07 07:53] LABS: Basophils Absolute Auto 0.1 X10*3/uL (0.0-0.2); Basophils Percent Auto 0.9 % (0-2); Eosinophils Absolute Auto 0.1 X10*3/uL (0.0-0.4); Eosinophils Percent Auto 1.7 % (0-4); Hematocrit 46.9 % (42.0-52.0); Imm Gran Abs Auto 0.02 X10*3/uL (0.00-0.03); Imm Gran Pct Auto 0.3 % (0.0-0.4); Lymphocytes Absolute Auto 1.7 X10*3/uL (1.2-4.9); Lymphocytes Percent Auto 25.9 % (20-40); Mean Corpuscular HGB Conc 34.1 g/dl (31.0-36.0); Mean Corpuscular Hemoglobin 30.2 pg (27.0-33.0); Mean Corpuscular Volume 88.5 fL (80.0-98.0); Mean Platelet Volume 9.5 fL (9.4-12.4); Monocytes Absolute Auto 0.6 X10*3/uL (0.1-1.2); Monocytes Percent Auto 9.7 % (2-11); Neutrophils Absolute Auto 3.9 x10*3/uL (2.0-8.3); Neutrophils Percent Auto 61.5 % (45-73); Platelet Count 216 X10*3/uL (160-400); Red Cell Distribution Width 12.2 % (11.0-16.0); White Blood Count 6.4 X10*3/uL (4.8-10.8)
[2023-08-07 08:02] LABS: Estimated Average Glucose 126 mg/dL
[2023-08-07 09:03] LABS: Alanine Aminotransferase 64 U/L (0-40); Albumin Level 4.4 g/dL (3.5-5.0); Alkaline Phosphatase 58 U/L (39-117); Anion Gap 13 (12-20); Aspartate Amino Transferase 48 U/L (5-37); Bilirubin Total 0.7 mg/dL (0.0-1.0); Blood Urea Nitrogen 18 mg/dL (9-16); C Reactive Protein 0.27 mg/dL (< or = 0.50); Calcium 9.3 mg/dL (8.4-10.2); Carbon Dioxide 26 mmol/L (22-29); Chloride 100 mmol/L (96-108); Cholesterol 169 mg/dL (<200); Estimated Glomerular Filt Rate > 60; Glucose Random 102 mg/dL (60-115); HDL Cholesterol 29 mg/dL (>40); Iron 118 mcg/dL (45-160); LDL Cholesterol Calculated 115 mg/dL (<100); Percent Iron Saturation 35 % (15-50); Potassium 4.4 mmol/L (3.3-5.1); Sodium 135 mmol/L (135-145); Total Iron Binding Capacity 335 mcg/dL (228-428); Total Protein 7.7 g/dL (6.5-8.0); Triglycerides 126 mg/dL (<150); Unsaturated Iron Binding 217 ug/dL
[2023-08-07 09:06] LABS: Ferritin 510 ng/mL (20-250); Insulin 23 uU/mL (2-29); TSH reflex Free T4 0.97 uIU/mL (0.32-4.0); Vitamin D 25-OH Total 11.7 ng/mL (>30)
[2023-08-07 09:09] LABS: Folate 8.7 ng/mL (> or = 4.0); Vitamin B12 420 pg/mL (200-900)
[2023-08-11 05:58] LABS: Zinc 89 mcg/dL (60-130)
[2023-08-11 06:09] LABS: Vitamin A 38 mcg/dL (38-98)
== END 2023-08-07 07:17 | disposition home or self-care (01) ==
LOC: HO.LAB 07:16
PROVIDERS: PCP Nurse Practitioner Family; Visit Provider Physician Assistant Surgical
DX: E66.01 Morbid (severe) obesity due to excess calories (principal); Z68.41 Body mass index [BMI] 40.0-44.9, adult; R74.01 Elevation of levels of liver transaminase levels; I10 Essential (primary) hypertension; G47.33 Obstructive sleep apnea (adult) (pediatric)
CPT/HCPCS: 36415; 80053; 80061; 82306; 82607; 82728; 82746; 83036; 83525; 83540; 84443; 84590; 84630; 85025; 86140

== ENCOUNTER 2023-08-09 07:54 | Outpatient (REF) | payer BC, SELFPAY ==
--- NOTE | ~2023-08-09 | XR_ITS ---
EXAMINATION: XR CHEST CLINICAL INFORMATION: Morbid (severe) obesity due to excess calories. COMPARISON: None available. TECHNIQUE: 2 views of the chest were obtained. FINDINGS: There is no gross pneumothorax. Lung volumes are low. Heart size is normal. Advanced degenerative changes in the mid to lower thoracic spine with large anterior osteophytes. Mild loss of height of multiple lower thoracic vertebral bodies of indeterminate age and etiology. Patchy opacities at the left lung base may represent atelectasis and/or an infectious/inflammatory process. Mild blunting of the left costophrenic angle possibly related to pleural effusion and/or pleural thickening. XR/XR chest 2V IMPRESSION: Patchy opacities at the left lung base may represent atelectasis and/or an infectious/inflammatory process. Mild blunting of the left costophrenic angle possibly related to pleural effusion and/or pleural thickening. This study was presented Wednesday, August 23, 2023 for interpretation. PSA staff will provide results to referring provider at this time.
[2023-08-13 16:39] LABS: Vitamin B1 <6 nmol/L (8-30)
== END 2023-08-09 07:55 | disposition home or self-care (01) ==
LOC: HO.XRAY 07:54
PROVIDERS: Absent Provider Physician Assistant Surgical; PCP Nurse Practitioner Family; Visit Provider Surgery
DX: E66.01 Morbid (severe) obesity due to excess calories (principal); Z68.41 Body mass index [BMI] 40.0-44.9, adult; R74.01 Elevation of levels of liver transaminase levels; I10 Essential (primary) hypertension; G47.33 Obstructive sleep apnea (adult) (pediatric); E55.9 Vitamin D deficiency, unspecified; E53.8 Deficiency of other specified B group vitamins
CPT/HCPCS: 36415; 71046; 84425

== ENCOUNTER 2023-08-09 07:54 | Outpatient (AMB) | payer BC, SELFPAY ==
--- NOTE | 2023-08-09 08:20 | A.OFFVIS_ITS ---
VS Expanded 08/09/23 08:54 Height 6 ft 2 in Weight 315 lb 6 oz BMI 40.5 Body Fat % 37.3 Body Fat Mass 122.1 Fat Free Mass 168.6 Visceral Fat Rating 24 Body Water % 45.6 Body Water Mass 149.2 Basal Metabolic Rate/Score 2,898 Intake Visit Reasons: TV Follow Up/Javi 1ST *[phone]* Allergies No Known Allergies Allergy (Verified 08/09/23 08:20) Medication List - Last Reconciled 08/09/23 by Kevin Hemphill MD albuterol sulfate 90 mcg/actuation (ProAir HFA) 2 puffs inhalation Q4-6H PRN dextroamphetamine-amphetamine 20 mg ER (Adderall XR) 40 mg (2 x 20 mg) PO QAM 30 days dorzolamide-timolol (PF) 2-0.5 % 1 drp ophthalmic (eye) BID gabapentin 300 mg PO BEDTIME 30 days losartan 25 mg PO DAILY 3 months losartan 50 mg PO DAILY 3 months metronidazole 1% (Metrogel) 1 ea topical DAILY 1 month naproxen 500 mg PO BID PRN triamcinolone acetonide 0.1% 1 appl topical BID 30 days HPI HPI TV Follow Up/Javi *[phone]*: Details: Start time: 8.10am, End time: 9.08am ?I spent 53 minutes speaking with the patient on the phone plus an additional 5 minutes reviewing and updating records for a total of 58 minutes HPI Comments Details: Overall weight loss: 15.6lbs, or 4.7% TBWL Is doing 2 Celebrate Rebuild protein shakes (2 scoops each in 12oz oatmilk), 2 Celebrate protein bars and one meal (12 forks of protein and 12 forks of salad or vegetables) Exercise: walking outside [facility] Medical History (Updated 08/09/23 @ 08:29 by Kevni Hemphill MD) Mild intermittent asthma ADHD Hypertension, essential Sleep apnea with use of continuous positive airway pressure (CPAP) ALEXA (obstructive sleep apnea) Surgical History History of carpal tunnel release History of eye surgery Family History Father No problems noted. Mother Breast cancer Sister In good health Brother Heart problem Other Mental health disorder Social History Household Members: Spouse Housing: House Patient Tobacco Use Status: Former Tobacco user Tobacco use type: Cigar e-Cigarette/Vaping Use: Never Used service: Yes Current occupational status: employed Current occupation: [employer] Cognitive needs: No Hearing needs: No Vision needs: No Telehealth Telehealth Telehealth Platform: Telephone Location of provider rendering services: practice address Location of patient: address on file Patient Identification confirmed using: Name, : Yes Telehealth method: voice only Patient verbally consented to treatment: Yes Patient verbally consented to billing insurance company: Yes Patient informed of any privacy concerns related to visit: Yes Minutes spent on Phone/Video with Pt.: 58 Assessment & Plan Assessment & Plan (1) Morbid obesity with BMI of 40.0-44.9, adult: Code(s): E66.01 - Morbid (severe) obesity due to excess calories; Z68.41 - Body mass index [BMI] 40.0-44.9, adult Category: Medical Plan: 1.? Plan for lap sleeve gastrectomy. If diaphragmatic or ventral hernias are present at time of surgery, these will be repaired laparoscopically as well. Risks and complications were discussed in detail including possible conversion to an open procedure, anastomotic leak, bleeding requiring transfusion, small bowel obstruction, , DVT and pulmonary embolism, cardiac, or pulmonary complications, as roll inspector complications such as anastomotic ulcer, insufficient weight loss and vitamin deficiencies. I emphasized the importance o f close follow-up, adherence to instructions and good communication. 2. Continue same nutritional plan of 2 Celebrate Rebuild protein shakes (2 scoops each in 12oz oatmilk), 2 Celebrate protein bars and one meal (12 forks of protein and 12 forks of salad or vegetables) Meal to include lean meat (beef, fish, pork, turkey, chicken), or chadian yogurt, or egg whites, or beans with a salad with olive oil and fruits (berries, pears, apples, kiwi). Avoid salt, breads, potatoes, rice, pasta, desserts. 3. Each shake would be drunk slowly, like coffee in a period of 2 hours. 4. Cut each bar in 4 pieces and eat each piece in 30min ?to make each bar last 2 hours. 5. I emphasized the importance of measuring accurately the food portion and measure it when serving the food in plate 6. The meal portions include 12 full-size forks of meat and 12 full-size forks of salad. You always eat the meat portion but you can replace up to 6 forks for salad/vegetables with rice, potatoes or pasta, or a fruit ?if you like. The less you do it the better weight loss will be. 7. One full-size fork is what it can be scooped on the fork without falling aside and not what can be bit with the fork. Use regular forks like those you find in a typical restaurant. 8.? Please send me weight measurements weekly on Mondays 9. Start walking outside daily, tracking calories with a goal of 300 calories per day, daily. Goal is to burn 2000 calories per week on exercise, which means either 300 calories daily, or 400 calories 5 days per week, or 500 calories 4 days per week, or 650 calories 3 days per week. 10. Alternatively start stationary bike at a resistance level of 0.0 Increase level by 1.0 every 3 min to a max level of 6.0. Stay at this level for 3 min and then return to level 0.0 and repeat same steps until 300 calories are burned. Velocity target is 12mph and heart rate is 135 bpm. Goal is to burn 2000 calories per week on exercise 11. Goal is to lose at least 1.5-2lbs per week 12. Goal to lose 10% of your weight before surgery, which is about 33lbs. Ultimate weight goal: 298lbs before surgery 13. Please follow the diet plan exactly without any change. If you don't like something about the plan or you feel hungry you need to communicate with me so I can help you revise the plan. You should not change the plan yourself. 14. To be scheduled for EGD due to history of GERD. The possibility of biopsies was discussed. Patient needs to avoid use of NSAIDs and aspirin for 1 week prior to EGD. Risks of perforation and? bleeding was discussed with the patient. This will be an outpatient procedure with IV sedation. Medications: New cholecalciferol (vitamin D3) 125 mcg PO DAILY 90 caps 0RF E55.9 - Vitamin D deficiency, unspecified mecobalamin (vitamin B12) place tablet under tongue and allow to dissolve for at least30 secs before swallowing 1,000 mcg sublingual DAILY 60 tabs 0RF E53.8 - Deficiency of other specified B group vitamins
[2023-08-09 08:54] VITALS: BMI 40.5
== END 2023-08-09 09:09 | disposition home or self-care (01) ==
LOC: HO.HBS 07:54
PROVIDERS: PCP Nurse Practitioner Family; Visit Provider Surgery
DX: E66.01 Morbid (severe) obesity due to excess calories (principal); Z68.41 Body mass index [BMI] 40.0-44.9, adult
CPT/HCPCS: 99443

== ENCOUNTER 2023-08-12 07:22 | Outpatient (AMB) | payer BC, SELFPAY ==
--- NOTE | 2023-08-12 07:30 | A.OFFVIS_ITS ---
Vital Signs 08/12/23 07:31 Height 6 ft 2 in Weight 318 lb 2.032 oz BMI 40.8 BP 133/83 Blood Pressure Location Lt brachial Position Sitting Pulse 88 Intake Visit Reasons: s/p colon Billy Intake Note: Patient here s/p colonoscopy with Dr. Cervantes on 07-30-23. Patient c/o: reports no concerns. Procedure went well. Accounts Payable Professional Required: No Accompanied by: Self / Same As Patient Allergies No Known Allergies Allergy (Verified 08/12/23 07:35) Medication List - Last Reconciled 08/12/23 by Krista Herrera PA-C albuterol sulfate 90 mcg/actuation (ProAir HFA) 2 puffs inhalation Q4-6H PRN cholecalciferol (vitamin D3) 125 mcg PO DAILY dextroamphetamine-amphetamine 20 mg ER (Adderall XR) 40 mg (2 x 20 mg) PO QAM 30 days dorzolamide-timolol (PF) 2-0.5 % 1 drp ophthalmic (eye) BID gabapentin 300 mg PO BEDTIME 30 days losartan 25 mg PO DAILY 3 months losartan 50 mg PO DAILY 3 months mecobalamin (vitamin B12) 1,000 mcg sublingual DAILY metronidazole 1% (Metrogel) 1 ea topical DAILY 1 month naproxen 500 mg PO BID PRN triamcinolone acetonide 0.1% 1 appl topical BID 30 days HPI Comments Details: A 57-year-old male follows up after recent screening colonoscopy with Reviewed procedure report, pathology and recommendations,opportunity for questions [facility] Medical History Mild intermittent asthma ADHD Hypertension, essential Sleep apnea with use of continuous positive airway pressure (CPAP) ALEXA (obstructive sleep apnea) Surgical History Hx of colonoscopy History of carpal tunnel release History of eye surgery Family History Father No problems noted. Mother Breast cancer Sister In good health Brother Heart problem Other Mental health disorder Social History Household Members: Spouse Housing: House Patient Tobacco Use Status: Former Tobacco user Tobacco use type: Cigar e-Cigarette/Vaping Use: Never Used service: Yes Current occupational status: employed Current occupation: [employer] Cognitive needs: No Hearing needs: No Vision needs: No Review of Systems Const All systems reviewed & are unremarkable except as noted in HPI and below Physical Exam Vital Signs: Last Vital Signs Pulse 88 08/12/23 07:31 BP 133/83 08/12/23 07:31 BMI result Body Mass Index 40.8 Const General: cooperative, healthy appearing, comfortable and no acute distress Orientation/consciousness: patient oriented x3 Limitations: no limitations Neuro General: patient oriented x3 Psych Appearance: grossly normal and well kempt Mental Status: mental status grossly normal Speech and movement: Normal speech and movement present and Clear speech present Attitude: cooperative Thought process: Normal thought process present Thought content: Normal thought content present Insight: Good insight present (Psych) Judgement: Good judgement present (Psych) Results Reviewed Results Reviewed: Colonoscopy Findings: Three small polyps were removed Moderate diverticulosis seen in the left colon Moderate hemorrhoids on retroflexed exam. Plan: Pt has a FU appointment on 08/12/23 with SHAKIR Huang Repeat Colonoscopy in 3-5 years if polyps are adenomatous and 10 year if polyps are hyperplastic. You should undergo a colonoscopy again in 5 years. Assessment & Plan Assessment & Plan (1) Adenomatous colon polyp: Code(s): D12.6 - Benign neoplasm of colon, unspecified Category: Medical Plan: 5 year AFD - begin screen at recommended qge 45 - (2) Diverticulosis of colon: Code(s): K57.30 - Diverticulosis of large intestine without perforation or abscess without bleeding Category: Medical Plan 5 year repeat asymptomatic colonoscopy Diverticulosis/diverticulitis ER protocol Foods to avoid Maintain high-fiber Patient Instructions: 5 year repeat asymptomatic colonoscopy Diverticulosis/diverticulitis ER protocol Foods to avoid-nut, corn, seeds etc Maintain high-fiber Call with concerns Coding Level of Care Code Est Pt Level 3 (48215) Diagnoses Adenomatous colon polyp D12.6 Diverticulosis of colon K57.30 Time Spent (min) 15
[2023-08-12 07:31] VITALS: BP 133/83; PULSE 88; BMI 40.8
== END 2023-08-12 07:50 | disposition home or self-care (01) ==
PROVIDERS: PCP Hospitalist; Visit Provider Physician Assistant
DX: D12.6 Benign neoplasm of colon, unspecified (principal); K57.30 Diverticulosis of large intestine without perforation or abscess without bleeding
CPT/HCPCS: 99213

== ENCOUNTER → 2023-08-12 07:22 | Outpatient (BNVA) | payer BC, SELFPAY | PROVIDERS: PCP Hospitalist; Visit Provider Physician Assistant ==

== ENCOUNTER → 2023-08-18 15:42 | Outpatient (REF) | payer BC, SELFPAY ==
--- NOTE | 2023-08-18 15:48 | ECG_ITS ---
Test Reason : morbid obesity Blood Pressure : / mmHG Vent. Rate : 073 BPM Atrial Rate : 073 BPM P-R Int : 162 ms QRS Dur : 116 ms QT Int : 402 ms P-R-T Axes : 035 022 029 degrees QTc Int : 442 ms Normal sinus rhythm Normal ECG No previous ECGs available Referred By: Javi Medina Electronically Signed By:MACY VASQUEZ
== END ==
LOC: HO.CARD 15:42
PROVIDERS: PCP Nurse Practitioner Family; Visit Provider Physician Assistant Surgical
DX: E66.01 Morbid (severe) obesity due to excess calories (principal); Z68.41 Body mass index [BMI] 40.0-44.9, adult; R74.01 Elevation of levels of liver transaminase levels; I10 Essential (primary) hypertension; G47.33 Obstructive sleep apnea (adult) (pediatric)
CPT/HCPCS: 93005

== ENCOUNTER → 2023-08-18 15:48 | Outpatient (BNV) | payer BC, SELFPAY | PROVIDERS: PCP Nurse Practitioner Family; Visit Provider Internal Medicine | DX: I10 Essential (primary) hypertension (principal); E66.01 Morbid (severe) obesity due to excess calories; Z68.41 Body mass index [BMI] 40.0-44.9, adult | CPT/HCPCS: 93010 ==

== ENCOUNTER 2023-08-24 07:50 | Outpatient (AMB) | payer BC, SELFPAY ==
[2023-08-24 07:59] VITALS: BP 122/74; PULSE 94; RESP 14; TEMP 36.6; O2SAT 96; BMI 39.7
--- NOTE | 2023-08-24 07:59 | A.OFFPC_ITS ---
Vital Signs 08/24/23 07:59 Height 6 ft 2 in Weight 309 lb 2 oz BMI 39.7 BP 122/74 Blood Pressure Location Rt brachial Position Sitting Respiration 14 Pulse 94 Pulse Source Pulse Oximeter Temp 97.8 F Temp Source Temporal Artery Scan Pulse Oximetry (%) 96 Oxygen Delivery Method Room Air Intake Visit Reasons: HTN, ADHD Intake Note: Patient would like refill on Naproxen and Metronidazole gel. Soil Chemist Required: No Accompanied by: Self / Same As Patient Allergies No Known Allergies Allergy (Verified 08/24/23 08:09) Medication List - Last Reconciled 08/24/23 by aRy Logan CNP albuterol sulfate 90 mcg/actuation (ProAir HFA) 2 puffs inhalation Q4-6H PRN cholecalciferol (vitamin D3) 125 mcg PO DAILY dextroamphetamine-amphetamine 20 mg ER (Adderall XR) 40 mg (2 x 20 mg) PO QAM 30 days dorzolamide-timolol (PF) 2-0.5 % 1 drp ophthalmic (eye) BID gabapentin 300 mg PO BEDTIME 30 days losartan 25 mg PO DAILY 3 months losartan 50 mg PO DAILY 3 months mecobalamin (vitamin B12) 1,000 mcg sublingual DAILY metronidazole 1% (Metrogel) 1 ea topical DAILY 1 month naproxen 500 mg PO BID PRN thiamine HCl (vitamin B1) 100 mg PO DAILY 90 days triamcinolone acetonide 0.1% 1 appl topical BID 30 days Tobacco use date assessed: 06/07/23 Dental Screening Dental Screen Date: 06/07/23 HPI HPI Comments History of Present Illness Details 57-year-old male presents for hypertensi on and ADHD follow-up He admits to taking his medications as prescribed without adverse reactions. He does not take Gabapentin routinely because it is ineffective. He notes that Adderall is usually effective unit 3pm if he takes the medication at 3am He reports continued intermittent right-sided low back and right lower extremity pain with standing and prolonged walking. He describes the pain as ?sharp. No tingling, numbness, or loss of sensation He requests refills for Naproxen and metronidazole for rosacea He notes that he started weight management with [facility] 3 weeks ago and has lost 26 lb since he started [facility] Medical History Mild intermittent asthma ADHD Hypertension, essential Sleep apnea with use of continuous positive airway pressure (CPAP) ALEXA (obstructive sleep apnea) Surgical History Hx of colonoscopy History of carpal tunnel release History of eye surgery Family History Father No problems noted. Mother Breast cancer Sister In good health Brother Heart problem Other Mental health disorder Social History Household Members: Spouse Housing: House Patient Tobacco Use Status: Former Tobacco user Tobacco use type: Cigar e-Cigarette/Vaping Use: Never Used service: Yes Current occupational status: employed Current occupation: [employer] Cognitive needs: No Hearing needs: No Vision needs: No Questionnaire PHQ-9 Over the last 2 weeks, how often have you been bothered by any of the following problems? 1. Little interest or pleasure in doing things: more than half the days 2. Feeling down, depressed, or hopeless: several days 3. Trouble falling or staying asleep, or sleeping too much: more than half the days 4. Feeling tired or having little energy: several days 5. Poor appetite or overeating: several days 6. Feeling bad about yourself - or that you are a failure or have let yourself or your family down: several days 7. Trouble concentrating on things, such as reading the newspaper or watching television: more than half the days 8. Moving or speaking so slowly that other people could have noticed. Or the opposite - being so fidgety or restless that you have been moving around a lot more than usual: several days 9. Thoughts that you would be better off or of hurting yourself in some way: several days Total score: 12 Depression Screening Interpretation: Positive Depression Screening Done: Yes 05902 - PHQ-9 Billing: Yes Source: Developed by Drs. Cooper Kearney, Makayla Herbert, Christopher Araya and colleagues, with an educational marques from [employer]. Thrive Questionnaire Date Thrive assessed: 06/07/23 MG-7 AMB Questionnaire MG-7 Date MG - 7 assessed: 08/24/23 Feeling nervous, anxious, or on edge: 1 = Several days Not being able to stop or control worryin = Several days Worrying too much about different things: 1 = Several days Trouble relaxin = Several days Being so restless that it is hard to sit still: 2 = More than half the days Becoming easily annoyed or irritable: 2 = More than half the days Feeling afraid as if something awful might happen: 1 = Several days Total MG-7 score (0-4 normal; 5-9 mild; 10-14 moderate; 15-21 severe): 9 Source: Developed by Drs. Cooper Kearney, Makayla Herbert, Christopher Araya and colleagues, with an educational marques from [employer]. MG-7 Assessment Billing MG-7 Assessment Tool: MG-7 Assessment 70106 Review of Systems Const Details: Const Denies chills, Denies fatigue, Denies fever(s), Denies headache(s) and Denies weakness ENT Denies dizziness and Denies headache(s) Card Denies chest pain, Denies lightheadedness, Denies dyspnea and Denies other (Palpitations) Resp Denies cough, Denies dyspnea, Denies wheezing and Denies other ( shortness of breath) GI Denies abdominal pain, Denies melena, Denies hematochezia, Denies change in bowel habits, Denies dyspepsia and Denies nausea Denies hematuria and Denies dysuria Musc Reports as per HPI Skin/Breast Denies rash, Denies unusual bruising and Denies wounds Neuro Denies abnormal gait, Denies dizziness, Denies headache(s), Denies memory loss, Denies numbness, Denies Sensory deficit (Neuro), Denies tingling and Denies weakness Psych Denies anxiety, Denies depression, Denies memory loss Endo Denies cold intolerance, Denies fatigue, Denies heat intolerance, Denies polydipsia and Denies polyuria Aller/Immun Denies wheezing Physical exam (Primary Care) Tobacco/Smoking Status: Tobacco use Status Tobacco use date assessed 06/07/23 07/13/23 08:05 Patient Tobacco Use Status Former Tobacco user 07/30/23 10:07 Tobacco use type Cigar 07/30/23 08:01 e-Cigarette/Vaping Use Never Used 07/13/23 08:05 Depression Screening Interpretation: Positive Thrive Assessment: Date of Thrive Assessment Date Thrive assessed 06/07/23 07/13/23 08:05 Const Other: General: no acute distress and well developed Nutritional Appearance: well nourished Orientation/consciousness: patient oriented x3 [facility] Head: Yes normocephalic and Yes atraumatic Eyes General: appearance normal, both eyes and all related structures Pupils: Equal, round and reactive pupils present EOM: EOMs intact bilaterally Resp Effort & Inspection: normal respiratory effort Auscultation: clear to auscultation bilaterally Cardio Rate: regular rate Rhythm: regular rhythm Heart sounds: S1 normal heart sound present, S2 normal heart sound present, no gallops, no murmurs and no rubs GI Palpation (GI): No Abdominal aortic bruit present, Soft to palpation, nontender, No hepatosplenomegaly present and No Rebound tenderness present Auscultation: normal bowel sounds General: Yes no CVA tenderness Back/Spine/Pelvis Back: no CVA tenderness Cervical Spine: cervical ROM normal and No Cervical spine tenderness Thoracic/Lumbar Spine: thoraco-lumbar ROM normal, No pain with thoraco-lumbar ROM, No thoracic spinal tenderness and No lumbar spinal tenderness Extrem General: Yes normal to inspection, No edema and No calf tenderness Negative right straight leg raise Skin General: warm and dry. Normal skin color. Normal skin turgor Neuro General: patient oriented x3, gait normal and no focal neuro deficit Cranial nerves: Yes Equal, round and reactive pupils present Cognition (Neuro): normal cognition Gait exam (Neuro): Normal gait present Sensory Exam: No Sensory deficit (Neuro) Psych Appearance: grossly normal Affect: normal affect Attitude: cooperative Thought process: Normal thought process present Assessment and Plan Assessment & Plan (1) Hypertension, essential: Code(s): I10 - Essential (primary) hypertension Plan: Blood pressure is 122/74, within goal of less than 140/90 Continue current treatment regimen Low-sodium diet and routine exercise encouraged Follow-up in 4 months when extended physical exam or return sooner with symptoms or concerns Verbalized understanding and agreed with treatment plan (2) ADHD: Code(s): F90.9 - Attention-deficit hyperactivity disorder, unspecified type Plan: Reports controlled symptoms especially during the day Encouraged to trial Adderall 20 mg twice daily for coverage throughout the day Follow-up with new or worsening symptoms Verbalized understanding and agreed with treatment plan (3) Right-sided low back pain with right-sided sciatica: Code(s): M54.41 - Lumbago with sciatica, right side Plan: Reports continued intermittent right-sided low back and right lower extremity pain with standing and prolonged walking. No tingling, numbness, or loss of sensation No lumbar tenderness to palpation. No overt injury or trauma Negative right straight leg raise Continue to take naproxen and gabapentin as prescribed Continue the follow-up with weight management as planned; weight loss may alleviate his symptoms Lumbar and right hip/pelvis x-ray ordered Follow-up with worsening or new symptoms Verbalized understanding and agreed with the treatment plan Orders: Orders XR lumbar spine 2-3V Today M54.41 - Lumbago with sciatica, right side XR hip RT w PEL1V Today M54.41 - Lumbago with sciatica, right side Medications: Refilled naproxen 500 mg PO BID PRN 60 tabs 2RF pain metronidazole 1% (Metrogel) 1 ea topical DAILY 1 month 60 grams 1RF L71.9 - Rosacea, unspecified Coding Level of Care Code Est Pt Level 4 (88886) Complex EM visit Add On G2211 Diagnoses Hypertension, essential I10 ADHD F90.9 Right-sided low back pain with right-sided sciatica M54.41 Additional Codes MG-7 Assessment Billing - MG-7 Assessment Tool: MG-7 Assessment 49859 ([id number])
== END 2023-08-24 08:27 | disposition home or self-care (01) ==
PROVIDERS: PCP Nurse Practitioner Family; Visit Provider Nurse Practitioner Family
DX: I10 Essential (primary) hypertension (principal); F90.9 Attention-deficit hyperactivity disorder, unspecified type; M54.41 Lumbago with sciatica, right side
CPT/HCPCS: 96127; 99214

== ENCOUNTER 2023-09-09 07:47 | Outpatient (REF) | payer BC, SELFPAY ==
--- NOTE | ~2023-09-09 | US_ITS ---
EXAMINATION: US COMPLETE ABDOMEN WITH LIVER ELASTOGRAPHY CLINICAL INFORMATION: COMPARISON: None available. TECHNIQUE: Real-time imaging of the abdominal viscera. Noninvasive ultrasound liver fibrosis assessment is performed using Rosey ElastPQ point quantification shear wave elastography (2D-SWE) with a C5-2 MHz transducer. Multiple elastography samples are obtained. FINDINGS: PANCREAS: Largely obscured by overlapping bowel gas. ABDOMINAL AORTA: The proximal and distal aortic segments are normal in caliber. The mid segment is largely obscured by overlapping bowel gas. INFERIOR VENA CAVA: Visualized portions are normal. LIVER: The liver demonstrates normal size, contour and increased echogenicity. No focal lesion or intrahepatic biliary duct dilatation. The right lobe measures 20.0 cm in length. The left lobe measures 9.5 cm in length. Portal flow is towards the liver (hepatopetal). Shear wave liver elastography median stiffness is 1.07 m/s (reference: normal median stiffness is 1.3 m/s or less). IQR/median stiffness to assess sampling precision is 0.07 (reference: good quality data set is IQR/median stiffness of 0.15 or less). GALLBLADDER: Normal. The gallbladder is physiologically distended without evidence of stones, sludge, polyps, wall thickening or pericholecystic fluid. COMMON BILE DUCT: Normal in caliber measuring 0.3 cm in diameter. RIGHT KIDNEY: At the lower pole, an 8 mm benign, simple cyst is seen, for which no imaging follow-up is recommended. No hydronephrosis. No renal calculi or focal parenchymal lesions. The kidney measures 11.5 cm in maximum dimension. LEFT KIDNEY: At the lower pole, a 1.7 cm benign, simple cyst is seen, for which no imaging follow-up is recommended. No hydronephrosis. No renal calculi or focal parenchymal lesions. The kidney measures 11.3 cm in maximum dimension. SPLEEN: No focal finding. The spleen measures 13.1 cm in maximum dimension. FREE FLUID: None. US/US abdomen comp w elastography IMPRESSION: 1. There is hepatosplenomegaly. 2. There is generalized increase in hepatic echotexture, consistent with fatty infiltration or hepatocellular disease. Please correlate clinically. No focal hepatic mass or intrahepatic biliary dilatation is seen. 3. Liver elastography: Measurements are consistent with a high probability of normal liver stiffness. REFERENCE: Society of Radiologists in Ultrasound Liver Stiffness Thresholds (2020): LIVER STIFFNESS THRESHOLDS: *Liver Stiffness equal or less than 1.3 m/s: High probability of being normal. *Liver Stiffness less than 1.7 m/s: In the absence of other known clinical signs, rules out compensated advanced chronic liver disease. *Liver Stiffness 1.7-2.1 m/s: Suggestive of compensated advanced chronic liver disease but need further test for confirmation. *Liver Stiffness over 2.1 m/s: Rules in compensated advanced chronic liver disease. *Liver Stiffness over 2.4 m/s: Suggestive of clinically significant portal hypertension. QUALITY OF DATA SET: *IQR/Median value equal or less than 0.15 implies a quality data set. *IQR/Median value over 0.15 implies a poor quality data set. SIGNIFICANT CHANGE FROM PRIOR EXAM: Significant change if liver stiffness measurement is 10% or greater from prior exam. OTHER CONSIDERATIONS: The stage of liver fibrosis may be overestimated in the setting of acute hepatitis, liver inflammation, elevated liver function tests, hepatic vascular congestion, obstructive cholestasis, non-fasting state, and infiltrative diseases such as amyloidosis and lymphoma. In some patients with NAFLD, the liver stiffness thresholds for compensated advanced chronic liver disease may be lower. In causes other than viral hepatitis and NAFLD, liver stiffness thresholds are not well established.
== END 2023-09-09 07:48 | disposition home or self-care (01) ==
LOC: HO.US 07:47
PROVIDERS: PCP Hospitalist; Visit Provider Physician Assistant Surgical
DX: E66.01 Morbid (severe) obesity due to excess calories (principal); Z68.41 Body mass index [BMI] 40.0-44.9, adult; R74.01 Elevation of levels of liver transaminase levels; I10 Essential (primary) hypertension; G47.33 Obstructive sleep apnea (adult) (pediatric)
CPT/HCPCS: 76700; 76981

== ENCOUNTER 2023-09-13 10:14 | Outpatient (AMB) | payer BC, SELFPAY ==
--- NOTE | 2023-09-13 08:42 | A.OFFWM_ITS ---
Intake Intake Visit Reasons: TV BH Intake Allergies No Known Allergies Allergy (Verified 08/24/23 08:09) FOR[facility]LY [facility], [facility] Medical History Mild intermittent asthma ADHD Hypertension, essential Sleep apnea with use of continuous positive airway pressure (CPAP) ALEXA (obstructive sleep apnea) Surgical History Hx of colonoscopy History of carpal tunnel release History of eye surgery Family History Father No problems noted. Mother Breast cancer Sister In good health Brother Heart problem Other Mental health disorder Social History Household Members: Spouse Housing: House Patient Tobacco Use Status: Former Tobacco user Tobacco use type: Cigar e-Cigarette/Vaping Use: Never Used service: Yes Current occupational status: employed Current occupation: [employer] Cognitive needs: No Hearing needs: No Vision needs: No Behavioral Health Assessment Weight Management Therapy Therapy Notes Details Patient reported looking to have weight loss surgery to help improve his health and quality of life. He reported being unable to do things he used to do, also pre diabetic. Pt reported that he has a history of depression, in his 20's he was admitted psychiatrically twice due to severe depression. he is currently not in therapy however was in the past. Pt denied a hx of problems with alcohol or drugs. Presenting Concerns Referral Source provider Reason for referral weight loss surgery evaluation Precipitating Event obesity Living Situation Current Living Situation Own At risk of losing current housing? No Satisfied with current living situation? Yes Comments Pt lives with his . He reported that she is very supportive. Food/Weight/Diet Expectations of change weight loss and maintenance History/Relationship with food Patient stated that he has always loved food and used it as a celebration. He stated that he would often eat foods he loves even when he is not hungry. Pizza is his favorite he reported and would have that often. He would go out to eat often to sit down restaurants, ribs, burgers, fries, sandwiches, [place] food, pasta, bread, breakfast, went out for breakfast often, Wednesday nights order out as well as Wednesday nights. Sometimes would go to bed hungry then wake up in the middle of the night , have some cookies and go back to sleep. Pt stated that he would often eat to feel better. History/Relationship with weight Patient stated that he has been overweight most of his life. He is currently at his heaviest. History/Relationship with dieting Atkins, lost 60lbs went down to 240lbs. (several diets throughout his life). Binge Eating Do you frequently eat large amounts of food in short periods of time, not feeling physically hungry? Yes Do you feel out of control when you eat a large amount of food in a short period of time? No Do you eat large amounts of food rapidly and typically alone? Yes Night Eating Do you wake up at least once during the night to eat? No If you wake up in the night, do you find that it is necessary to eat something in order to fall back asleep? Yes Do you have little or no appetite in the morning and feel very hungry in the evening, often overeating between dinner and when you go to bed? No Social History Family history and relationship Born and raised in this area but moved to [place] [facility] until 6 years ago when he moved back. He is to his for 12 years and has three step children and 5 grandchildren. 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 Cultural/Ethnic information Legal Involvement and History Current or historical involvement with the legal system? none Education Highest grade completed bachelors degree Preferred learning style Auditory, Verbal, Written, Learn by doing and Visual Currently enrolled in educational program? No Interested in further educational program? 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 Employment Employment Status [employer] Wants help to find employment? No Meaningful activities hiking and backpacking in the past as well as skiing. Financial Situation Describe current financial situation Comfortable Financial assistance? None Service Service? Yes Mental Health and Addiction Treatment Current/Past substance abuse? Yes Current/Past addictive behavior concerns? No Medical and Physical Health Summary Physical exam in the last year? Yes Pain Screening Current pain? No Pain in the last few months? Yes Comments back pain Medications0 Is the patient compliant with medications? Yes Does the patient have Adame Guardian in place? Not applicable Does the patient use complimentary health approaches? No Trauma/Abuse History History of trauma? Yes Questionnaires PHQ-9 Over the last 2 weeks, how often have you been bothered by any of the following problems? 1. Little interest or pleasure in doing things: more than half the days 2. Feeling down, depressed, or hopeless: more than half the days 3. Trouble falling or staying asleep, or sleeping too much: more than half the days 4. Feeling tired or having little energy: more than half the days 5. Poor appetite or overeating: more than half the days 6. Feeling bad about yourself - or that you are a failure or have let yourself or your family down: more than half the days 7. Trouble concentrating on things, such as reading the newspaper or watching television: several days 8. Moving or speaking so slowly that other people could have noticed. Or the opposite - being so fidgety or restless that you have been moving around a lot more than usual: several days 9. Thoughts that you would be better off or of hurting yourself in some way: not at all Total score: 14 Depression Screening Interpretation: Positive Depression Screening Done: Yes Source: Developed by Drs. Cooper Kearney, Makayla Herbert, Christopher Araya and colleagues, with an educational marques from [employer]. Binge Eating Scale Group 1 A. I don't feel self-conscious about my wt. or body size when I'm with others. B. I feel concerned about how I look to others, but it normally does not make me fell disappointed with myself C. I do get self-conscious about my appearance and wt. which makes me feel disappointed in myself. D. I feel very self-conscious about my wt. and frequently I feel intense shame and disgust for myself. I try to avoid social contacts because of my self- consciousness. Response Group 1: C Group 2 A. I don't have any difficulty eating slowly in the proper manner. B. Although I seem to gobble down foods, I don't end up feeling stuffed because of eating to much. C. At times, I tend to eat quickly and then, I feel uncomfortably full afterwards. D. I have the habit of bolting down my food, without really chewing it. When this happens I usually feel uncomfortably stuffed because I've eaten to much. Response Group 2: C Group 3 A. I feel capable to control my eating urges when I want to. B. I feel like I have failed to control my eating more than the average person. C. I feel utterly helpless when it comes to feeling in control of my eating urges. D. Because I feel so helpless about controlling my eating I have become very desperate about trying to get control. Response Group 3: C Group 4 A. I don't have the habit of eating when I'm bored. B. I sometimes eat when I'm bored, but often I'm able to get busy and get my mind off food. C. I have a regular habit of eating when I'm bored, but occasionally, I can use some other activity to get my mind off eating. D. I have a strong habit of eating when I'm bored. Nothing seems to help me breath the habit. Response Group 4: B Group 5 A. I'm usually physically hungry when I eat something. B. Occasionally, I eat something on impulse even though I really am not hungry. C. I have the regular habit of eating foods, that I might not really enjoy, to satisfy a hungry feeling even though physically, I don't need the food. D. Although I'm not physically hungry, I get a hungry feeling in my mouth that only seems to be satisfied when I eat a food, like sandwich, that fills my mouth. Sometimes, when I eat the food to satisfy my mouth hunger, I then spit the food out so I won't gain weight. Response Group 5: B Group 6 A. I don't feel any guilt or self-hate after I overeat. B. After I overeat, occasionally I feel guilt or self-hate. C. Almost all the time I experience strong guilt or self-hate after I overeat. Response Group 6: B Group 7 A. I don't lose total control of my eating when dieting even after periods when I overeat. B. Sometimes when I eat a forbidden food on a diet, I feel like I blew it and eat even more. C. Frequently, I have the habit of saying to myself, I've blown it now, why not go all the way, when I overeat on a diet. When that happens I eat more. D. I have a regular habit of starting a strict diets for myself but I break the diets by going on an eating binge. My life seems to be either a feast or famine. Response Group 7: B Group 8 A. I rarely eat so much food that I feel uncomfortably stuffed afterwards. B. Usually about once a month, I each such a quantity of food, I end up feeling very stuffed. C. I have regular periods during the month when I eat large amounts of food, either at mealtime or at snacks. D. I eat so much food that I regularly feel quite uncomfortable after eating and sometimes a bit nauseous. Response Group 8: D Group 9 A. My level of calorie intake does not go up very high or go down very low on a regular basis. B. Sometimes after I overeat, I will try to reduce my caloric intake to almost nothing to compensate for the excess calories I've eaten. C. I have a regular habit of overeating during the night. It seems that my routine is not to be hungry in the morning but overeat in the evening. D. In my adult years, I have had week-long periods where I practically starve myself. This follows periods when I overeat. It seems I live a life of either feast or famine. Response Group 9: A Group 10 A. I usually am able to stop eating when I want to. I know when enough is enough. B. Every so often, I experience a compulsion to eat which I can't seem to control. C. Frequently, I experience strong urges to eat which I seem unable to control, but at other times I can control my eating urges. D. I feel incapable of controlling urges to eat. I have a fear of not being able to stop eating voluntarily. Response Group 10: C Group 11 A. I don't have any problem stopping eating when I feel full. B. I usually can stop eating when I feel full but occasionally overeat leaving me feeling uncomfortably stuffed. C. I have a problem stopping eating once I start and usually I feel uncomfortably stuffed after I eat a meal. D. Because I have a problem not being able to stop eating when I want, I sometim es have to induce vomiting to relieve my stuffed feeling. Response Group 11: C Group 12 A. I seem to eat just as much when I'm with others, Family social gatherings as when I'm by myself. B. Sometimes, when I'm with other persons, I don't eat as much as I want to eat because I'm self-conscious about my eating. C. Frequently, I eat only a small amount of food when others are present, because I'm very embarrassed about my eating. D. I feel so ashamed about overeating that I pick times to overeat when I know no one will see me. I feel like a closet eater. Response Group 12: B Group 13 A. I eat three meals a day with only an occasional between meal snack. B. I eat 3 meals a day, but I also normally snack between meals. C. When I am snacking heavily, I get in the habit of skipping regular meals. D. There are regular periods when I seem to be continually eating, with no planned meals. Response Group 13: B Group 14 A. I don't think much about trying to control unwanted eating urges. B. At least some of the time, I feel my thoughts are pre-occupied with trying to control my eating urges. C. I feel that frequently I spend much time thinking about how much I ate or about trying not to eat anymore. D. It seems to me that most of my waking hours are pre-occupied by thoughts about eating or not eating. I feel like I'm constantly struggling not to eat. Response Group 14: B Group 15 A. I don't think about food a great deal. B. I have strong craving for food but they last only for brief periods of time. C. I have days when I can't seem to think about anything else but food. D. Most of my days seem to be pre-occupied with thoughts about food. I feel like I live to eat. Response Group 15: C Group 16 A. I usually know whether or not I'm physically hungry. I take the right portion of food to satisfy me. B. Occasionally, I feel uncertain about knowing whether or not I'm physically hungry. A these times it's hard to know how much food I should take to satisfy me. C. Even though I might know how many calories I should eat, I don't have any idea what is a normal amount of food for me. Response Group 16: C Binge Eating Score: 24 Score less than 17 Minimal Risk Score between 18-26 Moderate Risk Score between 27-46 High Risk Assessment & Plan Assessment & Plan (1) Dysthymia: Code(s): F34.1 - Dysthymic disorder (2) Body mass index (BMI) of 40.1 to 44.9 in adult: Code(s): Z68.41 - Body mass index [BMI] 40.0-44.9, adult (3) Right-sided low back pain with right-sided sciatica: Code(s): M54.41 - Lumbago with sciatica, right side Plan Patient has been doing very well, struggling with some doubts about the future and what that will look like for him. He has no serious barriers and is cleared for surgery when ready. Telehealth Telehealth Telehealth Platform: Telephone Location of provider rendering services: practice address Location of patient: address on file Patient Identification confirmed using: Name, : Yes Telehealth method: voice only Patient verbally consented to treatment: Yes Patient verbally consented to billing insurance company: Yes Patient informed of any privacy concerns related to visit: Yes Minutes spent on Phone/Video with Pt.: 45 Coding Level of Care Code Tele Psy Diag Nirmala ([id number]) Diagnoses Dysthymia F34.1 Body mass index (BMI) of 40.1 to 44.9 in adult Z68.41 Right-sided low back pain with right-sided sciatica M54.41 Time Spent (min) 45
== END 2023-09-13 11:16 | disposition home or self-care (01) ==
LOC: HO.HBST 10:14
PROVIDERS: PCP Nurse Practitioner Family; Visit Provider Counselor Mental Health
DX: F34.1 Dysthymic disorder (principal); Z68.41 Body mass index [BMI] 40.0-44.9, adult; M54.41 Lumbago with sciatica, right side
CPT/HCPCS: 90791

== ENCOUNTER → 2023-09-13 10:14 | Outpatient (BNVA) | payer BC, SELFPAY | PROVIDERS: PCP Nurse Practitioner Family; Visit Provider Counselor Mental Health | DX: F34.1 Dysthymic disorder (principal); Z68.41 Body mass index [BMI] 40.0-44.9, adult; M54.41 Lumbago with sciatica, right side ==

== ENCOUNTER 2023-09-17 08:13 | Outpatient (REF) | payer BC, SELFPAY ==
--- NOTE | ~2023-09-17 | FL_ITS ---
EXAMINATION: XR FLUOROSCOPY UPPER GI WITH AIR CLINICAL INFORMATION: Preop evaluation prior to bariatric surgery COMPARISON: None TECHNIQUE: Fluoroscopic air contrast upper GI examination was performed utilizing standard techniques with thin and thick barium and effervescent granules. Numerous spot images were obtained. FINDINGS: Dual and single contrast images of the esophagus demonstrate normal caliber, contour, and mucosal pattern. No evidence of stricture, mass, or ulcerations identified. Esophageal peristalsis was normal. A small type I hiatal hernia is present. No significant gastroesophageal reflux was seen during the course of the examination and on reflux views. Dual contrast and single contrast images of the stomach demonstrated a normal contour. There is poor coating of the posterior wall the stomach. No mass, ulceration, or other abnormality is seen. Contrast freely passed into the gastric antrum and duodenal bulb without delay. Single and air-contrast images of the duodenal bulb demonstrate no abnormality. The duodenal sweep has a normal appearance, course, and mucosal fold appearance. The imaged proximal jejunum has a normal fold pattern and caliber. FLUOROSCOPY TIME: 3 minutes 24 seconds Number of Spot Images: 9 Number of Cine: 11 DOSE AREA PRODUCT: [id number] uGy-m2 (microgray-meter squared) FL/FL upper GI w air IMPRESSION: 1. Small type I hiatal hernia without evidence of gastroesophageal reflux 2. There is poor coating the posterior wall of the stomach. No masses, or ulcerations are seen in the remaining portions of the stomach. This procedure was performed by Solo Keller PA-C, and supervised by Dr. Ovalle
== END 2023-09-17 08:14 | disposition home or self-care (01) ==
LOC: HO.XRAY 08:13
PROVIDERS: PCP Nurse Practitioner Family; Visit Provider Physician Assistant Surgical
DX: E66.01 Morbid (severe) obesity due to excess calories (principal); Z68.41 Body mass index [BMI] 40.0-44.9, adult; R74.01 Elevation of levels of liver transaminase levels
CPT/HCPCS: 74246

== ENCOUNTER → 2023-09-17 08:15 | Outpatient (BNV) | payer BC, SELFPAY | PROVIDERS: PCP Nurse Practitioner Family; Visit Provider Physician Assistant Surgical | DX: E66.01 Morbid (severe) obesity due to excess calories (principal); Z01.818 Encounter for other preprocedural examination | CPT/HCPCS: 74246 ==

== ENCOUNTER 2023-12-07 09:11 | Outpatient (REF) | payer BC, SELFPAY ==
--- NOTE | ~2023-12-07 | CT_ITS ---
EXAMINATION: CT CHEST WITH CONTRAST CLINICAL INFORMATION: Follow-up patchy opacity in the left lung seen on the radiograph from July 1999 COMPARISON: None TECHNIQUE: Multidetector volumetric CT imaging of the chest was obtained after the administration of 65 mL of Omnipaque 350 intravenous contrast without immediate adverse reactions. Axial MIP volume rendering provided. Sagittal and coronal reformatted images were obtained. This CT examination was performed using dose optimization techniques as appropriate, variously including the following: *Automated exposure control *Adjustment of mA and/or kV according to patient size (this includes techniques or standardized protocols for targeted exams where dose is matched to indication/reason for exam; i.e. 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 MEDIASTINUM: The mediastinum is normal. There is no pericardial effusion or cardiomegaly There are mild coronary artery calcifications. PLEURA: There is no pleural effusion. No pleural mass or thickening. AXILLA: No lymphadenopathy. UPPER ABDOMEN: Unremarkable OSSEOUS STRUCTURES: There is kyphotic deformity of lower thoracic spine with DISH CT/CT chest w IV con IMPRESSION: No abnormal findings. No evidence of lung mass. Mild coronary artery calcifications. DISH. Fleischner guidelines were followed. Electronically signed by: Guillermo Spann MD 12/22/2023 11:02 AM EDT
[2023-12-07 09:49] LABS: Anion Gap 10 (12-20); Blood Urea Nitrogen 18 mg/dL (9-16); Calcium 9.8 mg/dL (8.4-10.2); Carbon Dioxide 28 mmol/L (22-29); Chloride 105 mmol/L (96-108); Estimated Glomerular Filt Rate > 60; Glucose Random 112 mg/dL (60-115); Potassium 4.3 mmol/L (3.3-5.1); Sodium 139 mmol/L (135-145)
[2023-12-07] MEDS: iohexoL 350 MG/ML 100 ML INFUS..BTL IV (10:35)
== END 2023-12-07 09:12 | disposition home or self-care (01) ==
LOC: HO.CT 09:11
PROVIDERS: Visit Provider Physician Assistant Surgical
DX: Z01.818 Encounter for other preprocedural examination (principal); R93.89 Abnormal findings on diagnostic imaging of other specified body structures
CPT/HCPCS: 36415; 71260; 80048; Q9967

== ENCOUNTER 2023-12-31 08:22 | Outpatient (AMB) | payer BC, SELFPAY ==
--- NOTE | 2023-12-31 08:25 | A.OFFPC_ITS ---
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: No Allergies No Known Allergies Allergy (Verified 12/31/23 08:45) Medication List - Last Reconciled 12/31/23 by Ray Logan CNP albuterol sulfate 90 mcg/actuation (ProAir HFA) 2 puffs inhalation Q4-6H PRN cholecalciferol (vitamin D3) 125 mcg PO DAILY dextroamphetamine-amphetamine 20 mg ER (Adderall XR) 40 mg (2 x 20 mg) PO QAM 30 days dorzolamide-timolol (PF) 2-0.5 % 1 drp ophthalmic (eye) BID losartan 50 mg PO DAILY 3 months losartan 25 mg PO DAILY 3 months mecobalamin (vitamin B12) 1,000 mcg sublingual DAILY metronidazole 1% 1 appl topical DAILY thiamine HCl (vitamin B1) 100 mg PO DAILY 90 days triamcinolone acetonide 0.1% 1 appl topical BID 30 days Tobacco use date assessed: 12/31/23 Dental Screening Dental Screen Date: 12/31/23 Did you have a dental visit in the last 12 months?: No Did you have a dental problem in the last 6 months where you did not have access to dental care?: No Was dental information given to patient?: Patient has dentist HPI HPI Comments History of Present Illness Details 58-year-old male presents for complete p hysical exam He has past medical history significant for ADHD, GERD, obesity, hypertension, detached retina of both eyes, cataracts of left eye, glaucoma of both eyes, and partial vision loss of both eyes He admits to taking his medications as prescribed without adverse reactions He notes that his mood is poor. He states that he has been very depressed later. He attributes his symptoms to detached retina in his left eye in September,; he has chronic history of detached retina of the right eye. He notes that he think about different ways to but has no suicide plan. He notes that he does not have a pain. He states that the taught about being comes and goes in the last 3-4 months. He reports a little anxiety. Sleep has been an issue; he has trouble falling and staying asleep. He has sleep apnea, on cpap, however, he has not had a sleep study in over 12 years. He denies HI or active SI. He reports history of MDD, Bipolar with hospitalization, twice, 25 years ago. He was on Zelienople, Wellbutrin, and Prozac. He notes that he has not been on psychotropic medications for the past 30 years. He is interested in psychotherapy He reports controlled ADHD symptoms and denies anxiety, or changes in appetite He notes that he has been making healthy lifestyle changes, including diet and exercise He he [place] [facility] [place] and has lost 60 lb in the past 5 months He is followed by retina specialist and senior benefits analyst. Records not available. He will sign a release for his PCP to obtain records Former smoker. Drinks 1 beer weekly. No recreational drug use Last eye exam 2 weeks ago Last colonoscopy was in 07/29/2022: Adenomatous polyps He notes that he may have been vaccinated for shingles He has not been vaccinated for the flu this season and requests the vaccine Last Tdap was in 12/30/2019 [facility] Medical History (Updated 12/31/23 @ 14:49 by Ray Logan CNP) Mild intermittent asthma ADHD Hypertension, essential Sleep apnea with use of continuous positive airway pressure (CPAP) ALEXA (obstructive sleep apnea) Surgical History Hx of colonoscopy History of carpal tunnel release History of eye surgery Family History Father No problems noted. Mother Breast cancer Sister In good health Brother Heart problem Other Mental health disorder Social History Household Members: Spouse Housing: House Patient Tobacco Use Status: Former Tobacco user Tobacco use type: Cigar e-Cigarette/Vaping Use: Never Used Second Hand Smoke Exposure: No service: Yes Current occupational status: employed Current occupation: [employer] Cognitive needs: No Hearing needs: No Vision needs: No Questionnaire PHQ-9 Over the last 2 weeks, how often have you been bothered by any of the following problems? 1. Little interest or pleasure in doing things: nearly every day 2. Feeling down, depressed, or hopeless: nearly every day 3. Trouble falling or staying asleep, or sleeping too much: nearly every day 4. Feeling tired or having little energy: several days 5. Poor appetite or overeating: not at all 6. Feeling bad about yourself - or that you are a failure or have let yourself or your family down: more than half the days 7. Trouble concentrating on things, such as reading the newspaper or watching television: several days 8. Moving or speaking so slowly that other people could have noticed. Or the opposite - being so fidgety or restless that you have been moving around a lot more than usual: not at all 9. Thoughts that you would be better off or of hurting yourself in some way: several days Total score: 14 Depression Screening Interpretation: Positive Depression Screening Follow-up: Existing condition, New Medication prescribed and Community Mental Health Worker F/U Depression Screening Done: Yes 75831 - PHQ-9 Billing: Yes Source: Developed by Drs. Cooper Kearney, Makayla Herbert, Christopher Araya and colleagues, with an educational marques from [employer]. Thrive Questionnaire Date Thrive assessed: 12/31/23 I am a: Patient What is your living situation today?: I have a steady place to live Within the past 12 months, did the food you bought not last and you didn't have the money to get more?: Never true Within the past 12 months, did you worry whether your food would run out before you got money to buy more?: Never true Do you have trouble paying for medicines?: No Do you have trouble getting transportation to medical appointments?: No Do you have trouble paying your heating and electricity bill?: No Do you have trouble taking care of your child, family member or friend?: No Do you have trouble with day-to-day activities such as bathing, preparing meals, shopping, managing finances, etc.?: No Are you currently unemployed and looking for a job?: No Are you interested in more education?: No Please select the resources that you would like help with: None Currently or been in a relationship where the following occur: No concerns reported THRIVE Score: 0 AUDIT C Alcohol Use Questionnaire (AUDIT-C) 1. How often do you have a drink containing alcohol?: 2-4 times a month 2. How many drinks containing alcohol do you have on a typical day when you are drinking?: 1 or 2 3. How often do you have six or more drinks on one occasion?: Never Total Score: 2 Score Reviewed/Action Taken: Yes MG-7 AMB Questionnaire MG-7 Date MG - 7 assessed: 12/31/23 Feeling nervous, anxious, or on edge: 1 = Several days Not being able to stop or control worryin = Several days Worrying too much about different things: 1 = Several days Trouble relaxin = Several days Being so restless that it is hard to sit still: 0 = Not at all Becoming easily annoyed or irritable: 3 = Nearly every day Feeling afraid as if something awful might happen: 0 = Not at all Total MG-7 score (0-4 normal; 5-9 mild; 10-14 moderate; 15-21 severe): 7 Source: Developed by Drs. Cooper Kearney, Makayla Herbert, Christopher Araya and colleagues, with an educational marques from [employer]. MG-7 Assessment Billing MG-7 Assessment Tool: MG-7 Assessment 39963 ACT Questionnaire In the past 4 weeks, how much of the time did your asthma keep you from getting as much done at work, school or at home?: None of the time During the past 4 weeks, how often have you had shortness of breath?: 1-2 times a week During the past 4 weeks, how often did your asthma symptoms wake you up at night or earlier than usual in the morning?: Not at all During the past 4 weeks, how often have you had to use your rescue inhaler or ne bulizer medication?: Not at all How would you rate your asthma control during the past 4 weeks?: Completely controlled ACT Interpretation: Negative Score: 24 Review of Systems Const Details: Denies chills, Denies fatigue, Denies fever(s), Denies headache(s) and Denies weakness HEENT Denies change in vision, Denies dizziness, Denies headache(s), Denies hearing loss, Denies nasal congestion, Denies sinus pain, Denies sinus pressure and Denies sore throat Card Denies chest pain, Denies lightheadedness, Denies dyspnea and Denies other ( palpitations) Resp Denies cough, Denies dyspnea and Denies wheezing GI Denies abdominal pain, Denies melena, Denies hematochezia, Denies change in bowel habits, Denies dyspepsia and Denies nausea Denies hematuria and Denies dysuria Musc Denies abnormal gait, Denies myalgias, Denies arthralgias, Denies numbness and Denies tingling Skin/Breast Denies rash, Denies unusual bruising and Denies wounds Neuro Denies abnormal gait, Denies dizziness, Denies headache(s), Denies memory loss, Denies numbness, Denies Sensory deficit (Neuro), Denies tingling and Denies weakness Psych Denies anxiety, Denies depression and Denies memory loss Endo Denies cold intolerance, Denies fatigue, Denies heat intolerance, Denies polydipsia and Denies polyuria Kalpesh/Lymph Denies easy bleeding and Denies easy bruising Aller/Immun Denies wheezing Physical exam (Primary Care) Vital Signs: Last Vital Signs Temp 98.3 F 12/31/23 08:37 Pulse 77 12/31/23 08:37 Resp 16 12/31/23 08:37 BP 134/82 12/31/23 08:37 Pulse Ox 98 12/31/23 08:37 Oxygen Delivery Method Room Air 12/31/23 08:37 BMI result Body Mass Index 34.2 Tobacco/Smoking Status: Tobacco use Status Tobacco use date assessed 12/31/23 12/31/23 08:38 Patient Tobacco Use Status Former Tobacco user 12/31/23 08:26 Tobacco use type Cigar 12/31/23 08:26 e-Cigarette/Vaping Use Never Used 12/31/23 08:26 PHQ-9: PHQ-9 Score PHQ-9: Total score 14 12/31/23 09:34 Depression Screening Interpretation: Positive Depression Screening Follow-up: Existing condition, New Medication prescribed and Community Mental Health Worker F/U Thrive Assessment: Date of Thrive Assessment Date Thrive assessed 12/31/23 12/31/23 08:38 Currently or been in a relationship where the following occur: No concerns reported Const Other: General: no acute distress, well developed, alert and awake Nutritional Appearance: well nourished Orientation/consciousness: patient oriented x3 HENMT Head: Yes normocephalic and Yes atraumatic Ears: hearing grossly normal bilaterally and TM's normal bilaterally General nose exam: Normal external nose present and Normal nares present Mouth: Normal oral and palatal mucosa present and moist mucous membranes Teeth and gingiva: dentition normal Throat: Yes oropharynx normal Eyes Pupils: Equal, round and reactive pupils present and Pupil accommodation reflex normal EOM: EOMs intact bilaterally Neck Neck: Yes normal visual inspection, Yes no lymphadenopathy and Yes trachea midline Thyroid: Thyroid normal Carotids: no bruits Lymphatic: no lymphadenopathy noted Chest Chest palpation & inspection: normal inspection of the chest Resp Effort & Inspection: normal respiratory effort Auscultation: clear to auscultation bilaterally Cardio Rate: regular rate Rhythm: regular rhythm Heart sounds: S1 normal heart sound present, S2 normal heart sound present, no gallops, no murmurs and no rubs Bruits: no abdominal aortic bruits and no carotid bruits GI Palpation (GI): No Abdominal aortic bruit present, Soft to palpation, nontender, No hepatosplenomegaly present and No Rebound tenderness present Auscultation: normal bowel sounds General: Yes no CVA tenderness Back/Spine/Pelvis Back: no CVA tenderness Cervical Spine: cervical ROM normal and No Cervical spine tenderness Thoracic/Lumbar Spine: thoraco-lumbar ROM normal, No pain with thoraco-lumbar ROM, No thoracic spinal tenderness and No lumbar spinal tenderness Skin General: warm and dry. Normal skin color. Normal skin turgor Lesions: no lesions Rashes: no rashes Trauma: no lacerations or abrasions Wounds: no wounds Nails: normal Neuro General: patient oriented x3, gait normal and CN's II-XI intact bilaterally Cranial nerves: Yes Equal, round and reactive pupils present Cognition (Neuro): normal cognition Gait exam (Neuro): Normal gait present Motor exam (neuro): 5/5 motor strength present throughout Sensory Exam: No Sensory deficit (Neuro) Deep tendon reflexes (DTR's): Right patellar reflex intensity grade: 2+ and Left patellar reflex intensity grade: 2+ Extrem General: Yes normal to inspection, No edema and No calf tenderness Psych Appearance: grossly normal Affect: normal affect Attitude: cooperative Thought process: Normal thought process present Office Procedures Flu Questionnaire Does the patient have a severe egg allergy?: No Does the patient have severe life threatening allergies?: No Does the patient have a fever or illness today?: No Has the patient ever had Guillain-Orange Syndrome?: No Has the patient ever had any past reaction to a flu shot?: No Immunizations Fluarix Triv [id number] (PF) 45 mcg (15 mcg x 3)/0.5 mL IM syringe Performing Provider: Ray Logan CNP [place] [facility] [place] [facility] Administered by: Alena Ryan RN on 12/31/23 09:24 Dose Route Admin Location Dispensed Lot Number Expiration Date [facility] Ride Mechanic 0.5 mL IM Right Deltoid 0.5 mL [id number] 09/18/24 [id number] VIS Given Date VIS Provided VIS Publication Date 12/31/23 Single Vaccine 20 Eligibility Eligibility Date Funding Source Not [facility] Eligible 12/31/23 Private Coding Level of Care Code Est Pt Level 4 (55841) Est Pt Prev Care 40-64y(54427) Diagnoses Normal physical examination, routine Z00.00 Major depression F32.9 ADHD F90.9 Hypertension, essential I10 Sleep apnea with use of continuous positive airway pressure (CPAP) G47.30 Visual impairment in both eyes H54.[address] R93.89 Obesity (BMI 30-39.9) E66.9 Well controlled intermittent asthma J45.20 Flu vaccine need Z23 Vaccine counseling Z71.85 Laboratory tests ordered as part of a complete physical exam (CPE) Z00.00 Additional Codes MG-7 Assessment Billing - MG-7 Assessment Tool: MG-7 Assessment 29596 ([id number]) Asthma Control Questionnaire - ACT Interpretation: Negative ([id number]) Assessment & Plan Assessment & Plan (1) Normal physical examination, routine: Code(s): Z00.00 - Encounter for general adult medical examination without abnormal findings Category: Medical Plan: No significant functional limitation noted Continue current treatment regimen Healthy diet and routine exercise encouraged Advised to establish with a dentist for routine dental care Follow-up in 2 weeks for MDD or return sooner with worsening or new symptoms Verbalized understanding and agreed with the treatment plan (2) Major depression: Code(s): F32.9 - Major depressive disorder, single episode, unspecified Category: Medical Plan: He notes that he is very depressed and his mood is poor. He attributes his sym ptoms to visual impairment in both eyes. He has history of detached retina of both eyes. He reports passive SI. He denies HI or active SI or suicide plan. Sleep is also been an issue. He has trouble falling and staying asleep. He has history of sleep apnea, on CPAP, but has not had a sleep study in over 12 years. He has history of MDD and bipolar with hospitalization, twice, 25 years ago. He was on lithium, Wellbutrin, and Prozac; however, he has not been on psychotropic medication for the past 30 years. He is interested in psychotherapy PHQ-9 and MG-7 scores revealed moderate depression and mild anxiety respectively Will start sertraline 50 mg daily. Advised to take as prescribed. Instructed on the risks, benefits, and potential adverse reactions of the medications Routine exercise encouraged Follow-up in 2 weeks or sooner with worsening or new symptoms Verbalized understanding and agreed with treatment plan (3) ADHD: Code(s): F90.9 - Attention-deficit hyperactivity disorder, unspecified type Category: Medical Plan: Reports controlled ADHD symptoms Continue to take Adderall as prescribed Verbalized understanding and agreed with the plan (4) Hypertension, essential: Code(s): I10 - Essential (primary) hypertension Category: Medical Plan: Blood pressure is 134/82, within goal of less than 140/90 Continue current treatment regimen Low-sodium diet encouraged Will continue to monitor Verbalized understanding and agreed with the plan (5) Sleep apnea with use of continuous positive airway pressure (CPAP): Code(s): G47.30 - Sleep apnea, unspecified Category: Medical Plan: Sleep has been an issue; he has trouble falling and staying asleep. He has sleep apnea, on cpap, however, he has not had a sleep study in over 12 years His sleep disturbances likely due to depression or sleep apnea Advised to take sertraline as prescribed [place] [facility] [place] (6) Visual impairment in both eyes: Code(s): H54.3 - Unqualified visual loss, both eyes Category: Medical Plan: Reports history of detached retina of both eyes, cataracts of left eye, glaucoma of both eyes, partial vision loss of both Impaired vision with poor peripheral vision, left worse than right Followed by ophthalmology and retina specialist; he will sign a release for his PCP to obtain records (7) Abnormal chest CT: Code(s): R93.89 - Abnormal findings on diagnostic imaging of other specified body structures Category: Medical Plan: Recent chest CT on 12/07/2023 by weight management revealed the following: No abnormal findings. No evidence of lung mass. Mild coronary artery calcifications. DISH Ref[place] [facility] [place] for further evaluation (8) Obesity (BMI 30-39.9): Code(s): E66.9 - Obesity, unspecified Category: Medical Plan: He currently weighs 266 lb, BMI is 34.2 He is followed [place] [facility] [place] and on a protein diet He has lost 60 lb in the past 5 months Healthy diet and routine exercise encouraged Follow-up with with management as planned Verbalized understanding and agreed with the plan (9) Well controlled intermittent asthma: Code(s): J45.20 - Mild intermittent asthma, uncomplicated Category: Medical Plan: ACT score is 24 (10) Flu vaccine need: Code(s): Z23 - Encounter for immunization Category: Medical Plan: Flu vaccine administered today by our nurse (11) Vaccine counseling: Code(s): Z71.85 - Encounter for immunization safety counseling Category: Medical Plan: He is unsure of shingles vaccine status Instructed on importance of vaccination and encouraged to get vaccination for shingles. Advised to check his health record for shingles vaccine status Verbalized understanding and agreed with plan (12) Laboratory tests ordered as part of a complete physical exam (CPE): Code(s): Z00.00 - Encounter for general adult medical examination without abnormal findings Category: Medical Plan: Fasting labs ordered as part of a complete physical exam. Advised to fast for at least 10 hours before getting labs drawn. May drink water Verbalized understanding and agreed with treatment plan. Orders: Orders Microalbumin, Random (w Creat) Today Z00.00 - Encounter for general adult medical examination without abnormal findings Vitamin D 25-OH Total Today E55.9 - Vitamin D deficiency, unspecified PSA, Ultra Sensitive Today Z00.00 - Encounter for general adult medical examination without abnormal findings Lipid Panel Today Z00.00 - Encounter for general adult medical examination without abnormal findings Influenza [id number] Immunization Today Z23 - Encounter for immunization Referrals Sleep Medicine Referral G47.30 - Sleep apnea, unspecified Cardiology Referral R93.89 - Abnormal findings on diagnostic imaging of other specified body structures Medications: New sertraline 50 mg PO DAILY 30 days 30 tabs 3RF
[2023-12-31 08:37] VITALS: BP 134/82; PULSE 77; RESP 16; TEMP 36.8; O2SAT 98; BMI 34.2
== END 2023-12-31 09:47 | disposition home or self-care (01) ==
PROVIDERS: PCP Nurse Practitioner Family; Visit Provider Nurse Practitioner Family
DX: Z00.00 Encounter for general adult medical examination without abnormal findings (principal); I10 Essential (primary) hypertension; F32.9 Major depressive disorder, single episode, unspecified; F90.9 Attention-deficit hyperactivity disorder, unspecified type; Z68.34 Body mass index [BMI] 34.0-34.9, adult; E66.811 Obesity, class 1; G47.30 Sleep apnea, unspecified; H54.3 Unqualified visual loss, both eyes; R93.89 Abnormal findings on diagnostic imaging of other specified body structures; J45.20 Mild intermittent asthma, uncomplicated; Z71.85 Encounter for immunization safety counseling

== ENCOUNTER → 2023-12-31 08:22 | Outpatient (BNVA) | payer BC, SELFPAY | PROVIDERS: PCP Nurse Practitioner Family; Visit Provider Nurse Practitioner Family | DX: Z00.00 Encounter for general adult medical examination without abnormal findings (principal); F32.9 Major depressive disorder, single episode, unspecified; F90.9 Attention-deficit hyperactivity disorder, unspecified type; I10 Essential (primary) hypertension; G47.30 Sleep apnea, unspecified; H54.3 Unqualified visual loss, both eyes; H33.23 Serous retinal detachment, bilateral; R93.89 Abnormal findings on diagnostic imaging of other specified body structures; E66.9 Obesity, unspecified; Z68.34 Body mass index [BMI] 34.0-34.9, adult; J45.20 Mild intermittent asthma, uncomplicated; Z79.899 Other long term (current) drug therapy; Z23 Encounter for immunization | CPT/HCPCS: 90471; 90656; 96127; 96160 ==

== ENCOUNTER 2024-01-08 07:40 | Outpatient (REF) | payer BC, SELFPAY ==
[2024-01-08 09:23] LABS: Cholesterol 152 mg/dL (<200); HDL Cholesterol 32 mg/dL (>40); LDL Cholesterol Calculated 105 mg/dL (<100); Triglycerides 79 mg/dL (<150)
[2024-01-08 09:31] LABS: Creatinine Urine 173.57 mg/dL; Microalbum/Creatinine Ratio Ur 4.6 ug/mg cr (<30)
[2024-01-13 18:53] LABS: PSA, Ultra Sensitive 0.55 ng/mL
== END 2024-01-08 07:41 | disposition home or self-care (01) ==
LOC: HO.LAB 07:40
PROVIDERS: PCP Nurse Practitioner Family; Visit Provider Nurse Practitioner Family
DX: Z00.00 Encounter for general adult medical examination without abnormal findings (principal); E55.9 Vitamin D deficiency, unspecified; Z12.5 Encounter for screening for malignant neoplasm of prostate
CPT/HCPCS: 36415; 80061; 82043; 82306; 82570; 84153

== ENCOUNTER 2024-01-18 08:22 | Outpatient (AMB) | payer BC, SELFPAY ==
--- NOTE | 2024-01-18 08:26 | MHC.PC.OV ---
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 He had a physical exam about 2 weeks ago. He noted significant depressive symptoms which he attributed issues with his vision. He also had passive SI. He was prescribed sertraline 50 mg daily which he admits to taking as prescribed without adverse reactions. He notes that his depressive symptoms are currently well controlled. He denies anxiety. He notes that his passive SI has improved and had passive SI only 2-3 times in the past two weeks. He denies active SI or plans. No acute symptoms at this time. [facility] Medical History (Updated 12/31/23 @ 14:49 by Ray Logan CNP) Mild intermittent asthma ADHD Hypertension, essential Sleep apnea with use of continuous positive airway pressure (CPAP) ALEXA (obstructive sleep apnea) Surgical History Hx of colonoscopy History of carpal tunnel release History of eye surgery Family History Father No problems noted. Mother Breast cancer Sister In good health Brother Heart problem Other Mental health disorder Social History Household Members: Spouse Housing: House Patient Tobacco Use Status: Former Tobacco user Tobacco use type: Cigar e-Cigarette/Vaping Use: Never Used Second Hand Smoke Exposure: No service: Yes Current occupational status: employed Current occupation: [employer] Cognitive needs: No Hearing needs: No Vision needs: No Questionnaire PHQ-9 Over the last 2 weeks, how often have you been bothered by any of the following problems? 1. Little interest or pleasure in doing things: several days 2. Feeling down, depressed, or hopeless: several days 3. Trouble falling or staying asleep, or sleeping too much: not at all 4. Feeling tired or having little energy: not at all 5. Poor appetite or overeating: not at all 6. Feeling bad about yourself - or that you are a failure or have let yourself or your family down: not at all 7. Trouble concentrating on things, such as reading the newspaper or watching television: not at all 8. Moving or speaking so slowly that other people could have noticed. Or the opposite - being so fidgety or restless that you have been moving around a lot more than usual: not at all 9. Thoughts that you would be better off or of hurting yourself in some way: several days Total score: 3 Depression Screening Interpretation: Negative Depression Screening Done: Yes 22897 - PHQ-9 Billing: Yes Source: Developed by Drs. Cooper Kearney, Makayla Herbert, Christopher Araya and colleagues, with an educational marques from [employer]. Thrive Questionnaire Date Thrive assessed: 01/18/24 I am a: Patient What is your living situation today?: I have a steady place to live Within the past 12 months, did the food you bought not last and you didn't have the money to get more?: Never true Within the past 12 months, did you worry whether your food would run out before you got money to buy more?: Never true Do you have trouble paying for medicines?: No Do you have trouble getting transportation to medical appointments?: No Do you have trouble paying your heating and electricity bill?: No Do you have trouble taking care of your child, family member or friend?: No Do you have trouble with day-to-day activities such as bathing, preparing meals, shopping, managing finances, etc.?: No Are you currently unemployed and looking for a job?: No Are you interested in more education?: No Please select the resources that you would like help with: None Currently or been in a relationship where the following occur: No concerns reported THRIVE Score: 0 AUDIT C Alcohol Use Questionnaire (AUDIT-C) 1. How often do you have a drink containing alcohol?: 2-4 times a month 2. How many drinks containing alcohol do you have on a typical day when you are drinking?: 1 or 2 3. How often do you have six or more drinks on one occasion?: Less than monthly Total Score: 3 MG-7 AMB Questionnaire MG-7 Date MG - 7 assessed: 01/18/24 Feeling nervous, anxious, or on edge: 1 = Several days Not being able to stop or control worryin = Several days Worrying too much about different things: 0 = Not at all Trouble relaxin = Several days Being so restless that it is hard to sit still: 1 = Several days Becoming easily annoyed or irritable: 1 = Several days Feeling afraid as if something awful might happen: 1 = Several days Total MG-7 score (0-4 normal; 5-9 mild; 10-14 moderate; 15-21 severe): 6 Source: Developed by Drs. Cooper Kearney, Makayla Herbert, Christopher Araya and colleagues, with an educational marques from [employer]. MG-7 Assessment Billing MG-7 Assessment Tool: MG-7 Assessment 21351 Review of Systems Const Details: Const Denies chills, Denies fatigue, Denies fever(s), Denies headache(s) and Denies weakness ENT Denies dizziness and Denies headache(s) Card Denies chest pain, Denies lightheadedness, Denies dyspnea and Denies other (Palpitations) Resp Denies cough, Denies dyspnea, Denies wheezing and Denies other ( shortness of breath) GI Denies abdominal pain, Denies melena, Denies hematochezia, Denies change in bowel habits, Denies dyspepsia and Denies nausea Denies hematuria and Denies dysuria Musc Denies abnormal gait, Denies myalgias, Denies arthralgias, Denies numbness and Denies tingling Skin/Breast Denies rash, Denies unusual bruising and Denies wounds Neuro Denies abnormal gait, Denies dizziness, Denies headache(s), Denies memory loss, Denies numbness, Denies Sensory deficit (Neuro), Denies tingling and Denies weakness Psych Denies anxiety, Denies depression, Denies memory loss Endo Denies cold intolerance, Denies fatigue, Denies heat intolerance, Denies polydipsia and Denies polyuria Aller/Immun Denies wheezing Physical exam (Primary Care) Vital Signs: Last Vital Signs Temp 98.1 F 01/18/24 08:32 Pulse 78 01/18/24 08:32 Resp 16 01/18/24 08:32 BP 108/82 01/18/24 08:32 Pulse Ox 99 01/18/24 08:32 Oxygen Delivery Method Room Air 01/18/24 08:32 BMI result Body Mass Index 34.3 Tobacco/Smoking Status: Tobacco use Status Tobacco use date assessed 01/18/24 01/18/24 08:34 Patient Tobacco Use Status Former Tobacco user 01/18/24 08:26 Tobacco use type Cigar 01/18/24 08:26 e-Cigarette/Vaping Use Never Used 01/18/24 08:26 PHQ-9: PHQ-9 Score PHQ-9: Total score 3 01/18/24 08:34 Depression Screening Interpretation: Negative Thrive Assessment: Date of Thrive Assessment Date Thrive assessed 01/18/24 01/18/24 08:34 Currently or been in a relationship where the following occur: No concerns reported Const Other: General: no acute distress and well developed Nutritional Appearance: well nourished Orientation/consciousness: patient oriented x3 HENMT Head: Yes normocephalic and Yes atraumatic Eyes General: appearance normal, both eyes and all related structures Pupils: Equal, round and reactive pupils present EOM: EOMs intact bilaterally Resp Effort & Inspection: normal respiratory effort Auscultation: clear to auscultation bilaterally Cardio Rate: regular rate Rhythm: regular rhythm Heart sounds: S1 normal heart sound present, S2 normal heart sound present, no gallops, no murmurs and no rubs GI Palpation (GI): No Abdominal aortic bruit present, Soft to palpation, nontender, No hepatosplenomegaly present and No Rebound tenderness present Auscultation: normal bowel sounds General: Yes no CVA tenderness Back/Spine/Pelvis Back: no CVA tenderness Extrem General: Yes normal to inspection, No edema and No calf tenderness Skin General: warm and dry. Normal skin color. Normal skin turgor Neuro General: patient oriented x3, gait normal and no focal neuro deficit Cranial nerves: Yes Equal, round and reactive pupils present Cognition (Neuro): normal cognition Gait exam (Neuro): Normal gait present Sensory Exam: No Sensory deficit (Neuro) Psych Appearance: grossly normal Affect: normal affect Attitude: cooperative Thought process: Normal thought process present Coding Level of Care Code Est Pt Level 3 (28999) Diagnoses Major depression F32.9 Hypertension, essential I10 Additional Codes MG-7 Assessment Billing - MG-7 Assessment Tool: MG-7 Assessment 17153 ([id number]) Assessment & Plan Assessment & Plan (1) Major depression: Code(s): F32.9 - Major depressive disorder, single episode, unspecified Category: Medical Plan: Reports controlled depressive symptoms. Denies anxiety. Passive SI a significantly improved. No active SI or plans. PHQ-9 score is normal. MG-7 score reveals mild anxiety. Continue current treatment regimen. Routine exercise encouraged. Follow-up in 1 month or sooner with worsening or new symptoms. Verbalized understanding and agreed with treatment plan. (2) Hypertension, essential: Code(s): I10 - Essential (primary) hypertension Category: Medical Plan: Blood pressure is controlled, 108/82 Continue current treatment regimen Low-sodium diet encouraged Follow-up in 1 month Verbalized understanding and agreed with the plan
[2024-01-18 08:32] VITALS: BP 108/82; PULSE 78; RESP 16; TEMP 36.7; O2SAT 99; BMI 34.3
== END 2024-01-18 08:57 | disposition home or self-care (01) ==
LOC: HO.HMCFM 08:23
PROVIDERS: PCP Nurse Practitioner Family; Visit Provider Nurse Practitioner Family
DX: F32.9 Major depressive disorder, single episode, unspecified (principal); I10 Essential (primary) hypertension

== ENCOUNTER → 2024-01-18 08:22 | Outpatient (BNVA) | payer BC, SELFPAY | PROVIDERS: PCP Nurse Practitioner Family; Visit Provider Nurse Practitioner Family | DX: F32.9 Major depressive disorder, single episode, unspecified (principal); I10 Essential (primary) hypertension; E78.6 Lipoprotein deficiency | CPT/HCPCS: 96127 ==

== ENCOUNTER 2024-02-21 14:53 | Outpatient (AMB) | payer BC, SELFPAY ==
--- NOTE | 2024-02-21 15:06 | A.OFFPC_ITS ---
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 Required: No Allergies No Known Allergies Allergy (Verified 02/21/24 15:28) Medication List - Last Reconciled 02/21/24 by Ray Logan CNP albuterol sulfate 90 mcg/actuation (ProAir HFA) 2 puffs inhalation Q4-6H PRN cholecalciferol (vitamin D3) 125 mcg PO DAILY dextroamphetamine-amphetamine 20 mg ER (Adderall XR) 40 mg (2 x 20 mg) PO QAM 30 days dorzolamide-timolol (PF) 2-0.5 % 1 drp ophthalmic (eye) BID losartan 50 mg PO DAILY 3 months losartan 25 mg PO DAILY 3 months mecobalamin (vitamin B12) 1,000 mcg sublingual DAILY metronidazole 1% 1 appl topical DAILY sertraline 50 mg PO DAILY 30 days thiamine HCl (vitamin B1) 100 mg PO DAILY 90 days triamcinolone acetonide 0.1% 1 appl topical BID 30 days Tobacco use date assessed: 02/21/24 Dental Screening Dental Screen Date: 02/21/24 Did you have a dental visit in the last 12 months?: No Did you have a dental problem in the last 6 months where you did not have access to dental care?: No Was dental information given to patient?: Patient has dentist HPI HPI Comments History of Present Illness Details The patient is a 58-year-old male presenting for follow-up on depression and ADHD. The patient reports significant improvement in depressive symptoms since initiating medication, with no current symptoms of depression or anxiety. He has been on sertraline 50 mg daily and reports not requiring the previously discussed therapy or psychiatric consultations. He is excited about his overall weight loss, noting a total loss of 80 pounds and reports achieving much improved mental well-being, describing the feeling as substantially better than when previously depressed. For ADHD, the patient has been taking Adderall 40 mg daily. The issuing of prescriptions has presented challenges due to availability and the current pharmacological dispensing regulations. The patient indicates significant disruption to daily functioning when medication access is delayed, highlighting the impact on work attendance. [facility] Medical History (Updated 12/31/23 @ 14:49 by Ray Logan CNP) Mild intermittent asthma ADHD Hypertension, essential Sleep apnea with use of continuous positive airway pressure (CPAP) ALEXA (obstructive sleep apnea) Surgical History Hx of colonoscopy History of carpal tunnel release History of eye surgery Family History Father No problems noted. Mother Breast cancer Sister In good health Brother Heart problem Other Mental health disorder Social History Household Members: Spouse Housing: House Patient Tobacco Use Status: Former Tobacco user Tobacco use type: Cigar e-Cigarette/Vaping Use: Never Used Second Hand Smoke Exposure: No service: Yes Current occupational status: employed Current occupation: [employer] Cognitive needs: No Hearing needs: No Vision needs: No Questionnaire PHQ-9 Over the last 2 weeks, how often have you been bothered by any of the following problems? 1. Little interest or pleasure in doing things: not at all 2. Feeling down, depressed, or hopeless: not at all 3. Trouble falling or staying asleep, or sleeping too much: not at all 4. Feeling tired or having little energy: not at all 5. Poor appetite or overeating: not at all 6. Feeling bad about yourself - or that you are a failure or have let yourself or your family down: not at all 7. Trouble concentrating on things, such as reading the newspaper or watching television: not at all 8. Moving or speaking so slowly that other people could have noticed. Or the op posite - being so fidgety or restless that you have been moving around a lot more than usual: not at all 9. Thoughts that you would be better off or of hurting yourself in some way: not at all Total score: 0 Depression Screening Interpretation: Negative Depression Screening Done: Yes 50708 - PHQ-9 Billing: Yes Source: Developed by Drs. Cooper Kearney, Makayla Herbert, Christopher Araya and colleagues, with an educational marques from [employer]. Thrive Questionnaire Date Thrive assessed: 02/21/24 I am a: Patient What is your living situation today?: I have a steady place to live Within the past 12 months, did the food you bought not last and you didn't have the money to get more?: Never true Within the past 12 months, did you worry whether your food would run out before you got money to buy more?: Never true Do you have trouble paying for medicines?: No Do you have trouble getting transportation to medical appointments?: No Do you have trouble paying your heating and electricity bill?: No Do you have trouble taking care of your child, family member or friend?: No Do you have trouble with day-to-day activities such as bathing, preparing meals, shopping, managing finances, etc.?: No Are you currently unemployed and looking for a job?: No Are you interested in more education?: No Please select the resources that you would like help with: None Currently or been in a relationship where the following occur: No concerns reported THRIVE Score: 0 AUDIT C Alcohol Use Questionnaire (AUDIT-C) 1. How often do you have a drink containing alcohol?: 2-3 times a week 2. How many drinks containing alcohol do you have on a typical day when you are drinking?: 1 or 2 3. How often do you have six or more drinks on one occasion?: Never Total Score: 3 Score Reviewed/Action Taken: Yes MG-7 AMB Questionnaire MG-7 Date MG - 7 assessed: 02/21/24 Feeling nervous, anxious, or on edge: 0 = Not at all Not being able to stop or control worryin = Not at all Worrying too much about different things: 0 = Not at all Trouble relaxin = Not at all Being so restless that it is hard to sit still: 0 = Not at all Becoming easily annoyed or irritable: 0 = Not at all Feeling afraid as if something awful might happen: 0 = Not at all Total MG-7 score (0-4 normal; 5-9 mild; 10-14 moderate; 15-21 severe): 0 Source: Developed by Drs. Cooper Kearney, Makayla Herbert, Christopher Araya and colleagues, with an educational marques from [employer]. MG-7 Assessment Billing MG-7 Assessment Tool: MG-7 Assessment 95423 Review of Systems Const Details: Const Denies chills, Denies fatigue, Denies fever(s), Denies headache(s) and Denies we akness ENT Denies dizziness and Denies headache(s) Card Denies chest pain, Denies lightheadedness, Denies dyspnea and Denies other (Palpitations) Resp Denies cough, Denies dyspnea, Denies wheezing and Denies other ( shortness of breath) GI Denies abdominal pain, Denies melena, Denies hematochezia, Denies change in bowel habits, Denies dyspepsia and Denies nausea Denies hematuria and Denies dysuria Musc Denies abnormal gait, Denies myalgias, Denies arthralgias, Denies numbness and Denies tingling Skin/Breast Denies rash, Denies unusual bruising and Denies wounds Neuro Denies abnormal gait, Denies dizziness, Denies headache(s), Denies memory loss, Denies numbness, Denies Sensory deficit (Neuro), Denies tingling and Denies weakness Psych Denies anxiety, Denies depression, Denies memory loss Endo Denies cold intolerance, Denies fatigue, Denies heat intolerance, Denies polydipsia and Denies polyuria Aller/Immun Denies wheezing Physical exam (Primary Care) Vital Signs: Last Vital Signs Temp 97.5 F 02/21/24 15:10 Pulse 68 02/21/24 15:10 Resp 16 02/21/24 15:10 BP 126/68 02/21/24 15:10 Pulse Ox 95 02/21/24 15:10 Oxygen Delivery Method Room Air 02/21/24 15:10 BMI result Body Mass Index 33.9 Tobacco/Smoking Status: Tobacco use Status Tobacco use date assessed 02/21/24 02/21/24 15:14 Patient Tobacco Use Status Former Tobacco user 02/21/24 15:08 Tobacco use type Cigar 02/21/24 15:08 e-Cigarette/Vaping Use Never Used 02/21/24 15:08 PHQ-9: PHQ-9 Score PHQ-9: Total score 0 02/21/24 15:14 Depression Screening Interpretation: Negative Thrive Assessment: Date of Thrive Assessment Date Thrive assessed 02/21/24 02/21/24 15:08 Currently or been in a relationship where the following occur: No concerns reported Const Other: General: no acute distress and well developed Nutritional Appearance: well nourished Orientation/consciousness: patient oriented x3 [facility] Head: Yes normocephalic and Yes atraumatic Eyes General: appearance normal, both eyes and all related structures Pupils: Equal, round and reactive pupils present EOM: EOMs intact bilaterally Resp Effort & Inspection: normal respiratory effort Auscultation: clear to auscultation bilaterally Cardio Rate: regular rate Rhythm: regular rhythm Heart sounds: S1 normal heart sound present, S2 normal heart sound present, no gallops, no murmurs and no rubs GI Palpation (GI): No Abdominal aortic bruit present, Soft to palpation, nontender, No hepatosplenomegaly present and No Rebound tenderness present Auscultation: normal bowel sounds General: Yes no CVA tenderness Back/Spine/Pelvis Back: no CVA tenderness Cervical Spine: cervical ROM normal and No Cervical spine tenderness Thoracic/Lumbar Spine: thoraco-lumbar ROM normal, No pain with thoraco-lumbar ROM, No thoracic spinal tenderness and No lumbar spinal tenderness Extrem General: Yes normal to inspection, No edema and No calf tenderness Skin General: warm and dry. Normal skin color. Normal skin turgor Neuro General: patient oriented x3, gait normal and no focal neuro deficit Cranial nerves: Yes Equal, round and reactive pupils present Cognition (Neuro): normal cognition Gait exam (Neuro): Normal gait present Sensory Exam: No Sensory deficit (Neuro) Psych Appearance: grossly normal Affect: normal affect Attitude: cooperative Thought process: Normal thought process present Coding Level of Care Code Est Pt Level 3 (16420) Diagnoses Major depression F32.9 ADHD F90.9 Hypertension, essential I10 Additional Codes MG-7 Assessment Billing - MG-7 Assessment Tool: MG-7 Assessment 36565 ([id number]) PHQ-9 - 95607 - PHQ-9 Billing: Yes ([id number]) Assessment & Plan Assessment & Plan (1) Major depression: Code(s): F32.9 - Major depressive disorder, single episode, unspecified Category: Medical Plan: Continue current treatment regiment. (2) ADHD: Code(s): F90.9 - Attention-deficit hyperactivity disorder, unspecified type Category: Medical Plan: Plan as above. (3) Hypertension, essential: Code(s): I10 - Essential (primary) hypertension Category: Medical Plan: Continue current treatment regimen. Plan I discussed with the patient the current management of his depression and ADHD. Emphasized the importance of maintaining accessibility to prescribed medications and reviewed the potential impact of delayed access. Addressed concerns regarding hypertension medication refills and advised verifying pharmacy stock. We discussed the importance of maintaining physical activity and weight management efforts. Confirmed PHQ-9 and MG-7 scores as evidence of controlled depression and anxiety symptoms. A follow-up was scheduled in three months, with instructions to return sooner should there be any symptomatic changes. Medications: Changed From losartan takes with 25 mg for total dose of 75 mg 50 mg PO DAILY 3 months 90 tabs 1RF To losartan takes with 25 mg for total dose of 75 mg 50 mg PO DAILY 90 days 90 tabs 3RF Refilled losartan takes with 50 mg for total dose of 75 mg 25 mg PO DAILY 3 months 90 tabs 3RF I10 - Essential (primary) hypertension dextroamphetamine-amphetamine 20 mg ER (Adderall XR) [facility] verified. Partial refill upon request. 40 mg (2 x 20 mg) PO QAM 30 days 60 caps 0RF Patient Instructions: - Continue all current medications and confirm refill timing with the pharmacy. - Maintain current exercise routine and active lifestyle. - Contact the office if issues with medication access arise. - Return for follow-up in three months, or if there are changes in symptoms or health status. Patient was informed and verbally consented to the use of an ambient scribe for clinic note documentation during this visit.
[2024-02-21 15:10] VITALS: BP 126/68; PULSE 68; RESP 16; TEMP 36.4; O2SAT 95; BMI 33.9
== END 2024-02-21 15:41 | disposition home or self-care (01) ==
PROVIDERS: PCP Nurse Practitioner Family; Visit Provider Nurse Practitioner Family
DX: F32.9 Major depressive disorder, single episode, unspecified (principal); F90.9 Attention-deficit hyperactivity disorder, unspecified type; I10 Essential (primary) hypertension

== ENCOUNTER → 2024-02-21 14:53 | Outpatient (BNVA) | payer BC, SELFPAY | PROVIDERS: PCP Nurse Practitioner Family; Visit Provider Nurse Practitioner Family | DX: F32.9 Major depressive disorder, single episode, unspecified (principal); F90.9 Attention-deficit hyperactivity disorder, unspecified type; I10 Essential (primary) hypertension; Z79.899 Other long term (current) drug therapy | CPT/HCPCS: 96127 ==

== ENCOUNTER 2024-05-05 12:14 | Outpatient (AMB) | payer BC, SELFPAY ==
--- NOTE | 2024-05-05 12:23 | A.OFFPC_ITS ---
Vital Signs 05/05/24 12:26 Height 6 ft 2 in Weight 254 lb 8 oz BMI 32.7 BP 100/60 Blood Pressure Location Lt brachial Position Sitting Respiration 12 Pulse 69 Pulse Source Pulse Oximeter Temp 97.4 F Temp Source Oral Pulse Oximetry (%) 96 Oxygen Delivery Method Room Air Intake Visit Reasons: L eye cataract [facility] eye asso 05/26/24 Intake Note: pre op Allergies No Known Allergies Allergy (Verified 05/05/24 12:40) Medication List - Last Reconciled 05/05/24 by Ray Logan CNP albuterol sulfate 90 mcg/actuation (ProAir HFA) 2 puffs inhalation Q4-6H PRN dextroamphetamine-amphetamine 20 mg ER (Adderall XR) 40 mg (2 x 20 mg) PO QAM 30 days dorzolamide-timolol (PF) 2-0.5 % 1 drp ophthalmic (eye) BID losartan 25 mg PO DAILY 3 months losartan 50 mg PO DAILY 90 days metronidazole 1% 1 appl topical DAILY sertraline 50 mg PO DAILY 30 days triamcinolone acetonide 0.1% 1 appl topical BID 30 days Tobacco use date assessed: 02/21/24 Dental Screening Dental Screen Date: 02/21/24 HPI HPI Comments History of Present Illness Details 58-year-old male presents for preop foll ow-up. He is scheduled for cataract surgery of the left eye on with [facility] on 05/26/2024. He admits to taking his medications as prescribed without adverse reactions. His mood is generally stable but lately he has been anxious due to upcoming eye surgery. [facility] Medical History (Updated 12/31/23 @ 14:49 by Ray Logan CNP) Mild intermittent asthma ADHD Hypertension, essential Sleep apnea with use of continuous positive airway pressure (CPAP) ALEXA (obstructive sleep apnea) Surgical History Hx of colonoscopy History of carpal tunnel release History of eye surgery Family History Father No problems noted. Mother Breast cancer Sister In good health Brother Heart problem Other Mental health disorder Social History Household Members: Spouse Housing: House Patient Tobacco Use Status: Former Tobacco user Tobacco use type: Cigar e-Cigarette/Vaping Use: Never Used Second Hand Smoke Exposure: No service: Yes Current occupational status: employed Current occupation: [employer] Cognitive needs: No Hearing needs: No Vision needs: No Questionnaire PHQ-9 Over the last 2 weeks, how often have you been bothered by any of the following problems? 1. Little interest or pleasure in doing things: not at all 2. Feeling down, depressed, or hopeless: several days 3. Trouble falling or staying asleep, or sleeping too much: not at all 4. Feeling tired or having little energy: not at all 5. Poor appetite or overeating: several days 6. Feeling bad about yourself - or that you are a failure or have let yourself or your family down: not at all 7. Trouble concentrating on things, such as reading the newspaper or watching television: not at all 8. Moving or speaking so slowly that other people could have noticed. Or the opposite - being so fidgety or restless that you have been moving around a lot more than usual: not at all 9. Thoughts that you would be better off or of hurting yourself in some way: not at all Total score: 2 Depression Screening Interpretation: Negative Depression Screening Done: Yes Source: Developed by Drs. Cooper Kearney, Makayla Herbert, Christopher Araya and colleagues, with an educational marques from [employer]. Thrive Questionnaire Date Thrive assessed: 02/21/24 I am a: Patient What is your living situation today?: I have a steady place to live Within the past 12 months, did the food you bought not last and you didn't have the money to get more?: Never true Within the past 12 months, did you worry whether your food would run out before you got money to buy more?: Never true Do you have trouble paying for medicines?: No Do you have trouble getting transportation to medical appointments?: No Do you have trouble paying your heating and electricity bill?: No Do you have trouble taking care of your child, family member or friend?: No Do you have trouble with day-to-day activities such as bathing, preparing meals, shopping, managing finances, etc.?: No Are you currently unemployed and looking for a job?: No Are you interested in more education?: No Please select the resources that you would like help with: None Currently or been in a relationship where the following occur: No concerns reported THRIVE Score: 0 AUDIT C Alcohol Use Questionnaire (AUDIT-C) 1. How often do you have a drink containing alcohol?: 2-4 times a month 2. How many drinks containing alcohol do you have on a typical day when you are drinking?: 1 or 2 3. How often do you have six or more drinks on one occasion?: Never Total Score: 2 MG-7 AMB Questionnaire MG-7 Date MG - 7 assessed: 02/21/24 Feeling nervous, anxious, or on edge: 0 = Not at all Not being able to stop or control worryin = Not at all Worrying too much about different things: 0 = Not at all Trouble relaxin = Not at all Being so restless that it is hard to sit still: 0 = Not at all Becoming easily annoyed or irritable: 0 = Not at all Feeling afraid as if something awful might happen: 0 = Not at all Total MG-7 score (0-4 normal; 5-9 mild; 10-14 moderate; 15-21 severe): 0 Source: Developed by Drs. Cooper Kearney, Makayla Herbert, Christopher Araya and colleagues, with an educational marques from [employer]. Review of Systems Const Details: Const Denies chills, Denies fatigue, Denies fever(s), Denies headache(s) and Denies weakness ENT Denies dizziness and Denies headache(s) Card Denies chest pain, Denies lightheadedness, Denies dyspnea and Denies other (Palpitations) Resp Denies cough, Denies dyspnea, Denies wheezing and Denies other ( shortness of breath) GI Denies abdominal pain, Denies melena, Denies hematochezia, Denies change in bowel habits, Denies dyspepsia and Denies nausea Denies hematuria and Denies dysuria Musc Denies abnormal gait, Denies myalgias, Denies arthralgias, Denies numbness and Denies tingling Skin/Breast Denies rash, Denies unusual bruising and Denies wounds Neuro Denies abnormal gait, Denies dizziness, Denies headache(s), Denies memory loss, Denies numbness, Denies Sensory deficit (Neuro), Denies tingling and Denies weakness Psych Denies anxiety, Denies depression, Denies memory loss Endo Denies cold intolerance, Denies fatigue, Denies heat intolerance, Denies polydipsia and Denies polyuria Aller/Immun Denies wheezing Physical exam (Primary Care) Vital Signs: Last Vital Signs Temp 97.4 F 05/05/24 12:26 Pulse 69 05/05/24 12:26 Resp 12 05/05/24 12:26 BP 100/60 05/05/24 12:26 Pulse Ox 96 05/05/24 12:26 Oxygen Delivery Method Room Air 05/05/24 12:26 BMI result Body Mass Index 32.7 Tobacco/Smoking Status: Tobacco use Status Tobacco use date assessed 02/21/24 05/05/24 12:23 Patient Tobacco Use Status Former Tobacco user 05/05/24 12:23 Tobacco use type Cigar 05/05/24 12:23 e-Cigarette/Vaping Use Never Used 05/05/24 12:23 PHQ-9: PHQ-9 Score PHQ-9: Total score 2 05/05/24 12:23 Depression Screening Interpretation: Negative Thrive Assessment: Date of Thrive Assessment Date Thrive assessed 02/21/24 05/05/24 12:23 Currently or been in a relationship where the following occur: No concerns reported Const Other: General: no acute distress and well developed Nutritional Appearance: well nourished Orientation/consciousness: patient oriented x3 HENMT Head: Yes normocephalic and Yes atraumatic Eyes General: appearance normal, both eyes and all related structures Pupils: Equal, round and reactive pupils present EOM: EOMs intact bilaterally Resp Effort & Inspection: normal respiratory effort Auscultation: clear to auscultation bilaterally Cardio Rate: regular rate Rhythm: regular rhythm Heart sounds: S1 normal heart sound present, S2 normal heart sound present, no gallops, no murmurs and no rubs GI Palpation (GI): No Abdominal aortic bruit present, Soft to palpation, nontender, No hepatosplenomegaly present and No Rebound tenderness present Auscultation: normal bowel sounds General: Yes no CVA tenderness Back/Spine/Pelvis Back: no CVA tenderness Cervical Spine: cervical ROM normal and No Cervical spine tenderness Thoracic/Lumbar Spine: thoraco-lumbar ROM normal, No pain with thoraco-lumbar ROM, No thoracic spinal tenderness and No lumbar spinal tenderness Extrem General: Yes normal to inspection, No edema and No calf tenderness Skin General: warm and dry. Normal skin color. Normal skin turgor Neuro General: patient oriented x3, gait normal and no focal neuro deficit Cranial nerves: Yes Equal, round and reactive pupils present Cognition (Neuro): normal cognition Gait exam (Neuro): Normal gait present Sensory Exam: No Sensory deficit (Neuro) Psych Appearance: grossly normal Affect: normal affect Attitude: cooperative Thought process: Normal thought process present Coding Level of Care Code Est Pt Level 3 (91806) Diagnoses Pre-op evaluation Z01.818 Hypertension, essential I10 Major depression F32.9 Assessment & Plan Assessment & Plan (1) Pre-op evaluation: Code(s): Z01.818 - Encounter for other preprocedural examination Category: Medical Plan: Normal physical exam. Vital signs stable. He will be cleared for cataract surgery of the left eye on 05/24/2024 pending CBC and CMP results. Advised to get fasting blood work done as soon as possible. Fast for 10-12 hours, may drink water. Verbalized understanding and agreed with the treatment plan. (2) Hypertension, essential: Code(s): I10 - Essential (primary) hypertension Category: Medical Plan: Blood pressure is controlled, 100/60. Continue current treatment regimen. Follow-up in 3 months or sooner with symptoms or concerns. Verbalized understanding and agreed with treatment plan. (3) Major depression: Code(s): F32.9 - Major depressive disorder, single episode, unspecified Category: Medical Plan: Mood is generally stable. However, lately he has been feeling anxious about upcoming left eye surgery. Continue current treatment regimen. Routine exercise encouraged. Instructed on deep breathing/relaxation techniques. Follow-up in 3 months or sooner with worsening or new symptoms. Verbalized understanding and agreed with treatment plan. Orders: Orders Comprehensive Welch. Panel Fast Today Z01.818 - Encounter for other preprocedural examination Complete Blood Count Auto Diff Today Z01.818 - Encounter for other preprocedural examination
[2024-05-05 12:26] VITALS: BP 100/60; PULSE 69; RESP 12; TEMP 36.3; O2SAT 96; BMI 32.7
== END 2024-05-05 12:52 | disposition home or self-care (01) ==
PROVIDERS: PCP Nurse Practitioner Family; Visit Provider Nurse Practitioner Family
DX: Z01.818 Encounter for other preprocedural examination (principal); I10 Essential (primary) hypertension; F32.9 Major depressive disorder, single episode, unspecified

== ENCOUNTER 2024-05-24 07:51 | Outpatient (REF) | payer BC, SELFPAY ==
[2024-05-24 08:01] LABS: MANUAL DIFF FLAG NO
[2024-05-24 08:18] LABS: Basophils Absolute Auto 0.1 X10*3/uL (0.0-0.2); Basophils Percent Auto 0.7 % (0-2); Eosinophils Absolute Auto 0.1 X10*3/uL (0.0-0.4); Eosinophils Percent Auto 1.5 % (0-4); Hematocrit 47.7 % (42.0-52.0); Hemoglobin 16.1 g/dl (14.0-18.0); Imm Gran Abs Auto 0.03 X10*3/uL (0.00-0.03); Imm Gran Pct Auto 0.4 % (0.0-0.4); Lymphocytes Absolute Auto 1.8 X10*3/uL (1.2-4.9); Lymphocytes Percent Auto 24.8 % (20-40); Mean Corpuscular HGB Conc 33.8 g/dl (31.0-36.0); Mean Corpuscular Hemoglobin 30.8 pg (27.0-33.0); Mean Corpuscular Volume 91.4 fL (80.0-98.0); Mean Platelet Volume 9.4 fL (9.4-12.4); Monocytes Absolute Auto 0.5 X10*3/uL (0.1-1.2); Monocytes Percent Auto 6.9 % (2-11); Neutrophils Absolute Auto 4.7 x10*3/uL (2.0-8.3); Neutrophils Percent Auto 65.7 % (45-73); Platelet Count 201 X10*3/uL (160-400); Red Blood Count 5.22 X10*6/uL (4.60-5.80); Red Cell Distribution Width 12.5 % (11.0-16.0); White Blood Count 7.2 X10*3/uL (4.8-10.8)
[2024-05-24 08:57] LABS: Alanine Aminotransferase 18 U/L (0-40); Albumin Level 4.1 g/dL (3.5-5.0); Alkaline Phosphatase 63 U/L (39-117); Anion Gap 10 (12-20); Aspartate Amino Transferase 24 U/L (5-37); Bilirubin Total 0.5 mg/dL (0.0-1.0); Blood Urea Nitrogen 20 mg/dL (9-16); Calcium 9.4 mg/dL (8.4-10.2); Carbon Dioxide 27 mmol/L (22-29); Chloride 107 mmol/L (96-108); Estimated Glomerular Filt Rate > 60; Glucose Fasting 110 mg/dL (60-99); Potassium 4.8 mmol/L (3.3-5.1); Sodium 139 mmol/L (135-145); Total Protein 7.5 g/dL (6.5-8.0)
== END 2024-05-24 07:52 | disposition home or self-care (01) ==
LOC: HO.LAB 07:51
PROVIDERS: PCP Nurse Practitioner Family; Visit Provider Nurse Practitioner Family
DX: Z01.818 Encounter for other preprocedural examination (principal)
CPT/HCPCS: 36415; 80053; 85025

== ENCOUNTER 2024-06-19 11:31 | Outpatient (AMB) | payer BC, SELFPAY ==
--- NOTE | 2024-06-19 11:35 | MHC.PC.OV ---
Vital Signs 06/19/24 11:40 Height 6 ft 2 in Weight 258 lb BMI 33.1 BP 114/64 Blood Pressure Location Rt brachial Position Sitting Respiration 16 Pulse 64 Pulse Source Pulse Oximeter Temp 98.2 F Temp Source Oral Pulse Oximetry (%) 98 Oxygen Delivery Method Room Air Intake Visit Reasons: Rash Itchy Intake Note: patient here c/o itchy rash on face he has had it for a long time but its painful. 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 Allergies No Known Allergies Allergy (Verified 06/19/24 12:19) Medication List - Last Reconciled 06/19/24 by Ray Logan CNP albuterol sulfate 90 mcg/actuation (ProAir HFA) 2 puffs inhalation Q4-6H PRN dextroamphetamine-amphetamine 20 mg ER (Adderall XR) 40 mg (2 x 20 mg) PO QAM 28 days dorzolamide-timolol (PF) 2-0.5 % 1 drp ophthalmic (eye) BID losartan 25 mg PO DAILY 3 months losartan 50 mg PO DAILY 90 days metronidazole 1% 1 appl topical DAILY sertraline 50 mg PO DAILY 30 days triamcinolone acetonide 0.1% 1 appl topical BID 30 days Tobacco use date assessed: 06/19/24 Dental Screening Dental Screen Date: 06/19/24 Did you have a dental visit in the last 12 months?: No Did you have a dental problem in the last 6 months where you did not have access to dental care?: No Was dental information given to patient?: Patient has dentist HPI HPI Comments History of Present Illness Details 58-year-old male presents with complaints of painful facial rash which has been intermittent. He wears CPAP at night, which makes the rash ray painful. He has history of rosacea that responds well to minocycline. [facility] Medical History (Updated 12/31/23 @ 14:49 by Ray Logan CNP) Mild intermittent asthma ADHD Hypertension, essential Sleep apnea with use of continuous positive airway pressure (CPAP) ALEXA (obstructive sleep apnea) Surgical History Hx of colonoscopy History of carpal tunnel release History of eye surgery Family History Father No problems noted. Mother Breast cancer Sister In good health Brother Heart problem Other Mental health disorder Social History Household Members: Spouse Housing: House Patient Tobacco Use Status: Former Tobacco user Tobacco use type: Cigar e-Cigarette/Vaping Use: Never Used Second Hand Smoke Exposure: No service: Yes Current occupational status: employed Current occupation: [employer] Cognitive needs: No Hearing needs: No Vision needs: No Questionnaire Thrive Questionnaire Date Thrive assessed: 05/05/24 I am a: Patient What is your living situation today?: I have a steady place to live Within the past 12 months, did the food you bought not last and you didn't have the money to get more?: Never true Within the past 12 months, did you worry whether your food would run out before you got money to buy more?: Never true Do you have trouble paying for medicines?: No Do you have trouble getting transportation to medical appointments?: No Do you have trouble paying your heating and electricity bill?: No Do you have trouble taking care of your child, family member or friend?: No Do you have trouble with day-to-day activities such as bathing, preparing meals, shopping, managing finances, etc.?: No Are you currently unemployed and looking for a job?: No Are you interested in more education?: No Please select the resources that you would like help with: None Currently or been in a relationship where the following occur: No concerns reported THRIVE Score: 0 MG-7 AMB Questionnaire MG-7 Date MG - 7 assessed: 02/21/24 Source: Developed by Drs. Cooper Kearney, Makayla Herbert, Christopher Araya and colleagues, with an educational marques from [employer]. Review of Systems Const Details: Const Denies chills, Denies fatigue, Denies fever(s), Denies headache(s) and Denies weakness ENT Denies dizziness and Denies headache(s) Card Denies chest pain, Denies lightheadedness, Denies dyspnea and Denies other (Palpitations) Resp Denies cough, Denies dyspnea, Denies wheezing and Denies other ( shortness of breath) GI Denies abdominal pain, Denies melena, Denies hematochezia, Denies change in bowel habits, Denies dyspepsia and Denies nausea Denies hematuria and Denies dysuria Musc Denies abnormal gait, Denies myalgias, Denies arthralgias, Denies numbness and Denies tingling Skin/Breast Reports as per HPI Neuro Denies abnormal gait, Denies dizziness, Denies headache(s), Denies memory loss, Denies numbness, Denies Sensory deficit (Neuro), Denies tingling and Denies weakness Psych Denies anxiety, Denies depression, Denies memory loss Endo Denies cold intolerance, Denies fatigue, Denies heat intolerance, Denies polydipsia and Denies polyuria Aller/Immun Denies wheezing Physical exam (Primary Care) Vital Signs: Last Vital Signs Temp 98.2 F 06/19/24 11:40 Pulse 64 06/19/24 11:40 Resp 16 06/19/24 11:40 BP 114/64 06/19/24 11:40 Pulse Ox 98 06/19/24 11:40 Oxygen Delivery Method Room Air 06/19/24 11:40 BMI result Body Mass Index 33.1 Tobacco/Smoking Status: Tobacco use Status Tobacco use date assessed 06/19/24 06/19/24 11:41 Patient Tobacco Use Status Former Tobacco user 06/19/24 11:37 Tobacco use type Cigar 06/19/24 11:37 e-Cigarette/Vaping Use Never Used 06/19/24 11:37 Thrive Assessment: Date of Thrive Assessment Date Thrive assessed 05/05/24 06/19/24 11:37 Currently or been in a relationship where the following occur: No concerns reported Const Other: General: no acute distress and well developed Nutritional Appearance: well nourished Orientation/consciousness: patient oriented x3 HENMT Head: Yes normocephalic and Yes atraumatic Eyes General: appearance normal, both eyes and all related structures Pupils: Equal, round and reactive pupils present EOM: EOMs intact bilaterally Resp Effort & Inspection: normal respiratory effort Auscultation: clear to auscultation bilaterally Cardio Rate: regular rate Rhythm: regular rhythm Heart sounds: S1 normal heart sound present, S2 normal heart sound present, no gallops, no murmurs and no rubs GI Palpation (GI): No Abdominal aortic bruit present, Soft to palpation, nontender, No hepatosplenomegaly present and No Rebound tenderness present Auscultation: normal bowel sounds General: Yes no CVA tenderness Back/Spine/Pelvis Back: no CVA tenderness Cervical Spine: cervical ROM normal and No Cervical spine tenderness Thoracic/Lumbar Spine: thoraco-lumbar ROM normal, No pain with thoraco-lumbar ROM, No thoracic spinal tenderness and No lumbar spinal tenderness Extrem General: Yes normal to inspection, No edema and No calf tenderness Skin General: warm and dry. Normal skin color. Normal skin turgor Lesions: no lesions Rashes: Red facial patches with few red raised bumps with whiteheads consistent with rosacea and acne Trauma: no lacerations or abrasions Wounds: no wounds Nails: normal Neuro General: patient oriented x3, gait normal and no focal neuro deficit Cranial nerves: Yes Equal, round and reactive pupils present Cognition (Neuro): normal cognition Gait exam (Neuro): Normal gait present Sensory Exam: No Sensory deficit (Neuro) Psych Appearance: grossly normal Affect: normal affect Attitude: cooperative Thought process: Normal thought process present Coding Level of Care Code Est Pt Level 3 (22631) Diagnoses Rosacea L71.9 Assessment & Plan Assessment & Plan (1) Rosacea: Code(s): L71.9 - Rosacea, unspecified Category: Medical Plan: Red facial patches with few red raised bumps with whiteheads consistent with rosacea and acne. Minocycline as prescribed. Cool compresses encouraged. Follow-up with worsening or new signs and symptoms. Verbalized understanding and agreed with treatment plan. Medications: New minocycline 1.5% 1 appl topical DAILY 30 grams 1RF Discontinued metronidazole 1% Discontinued Reason: Doctor's Order 1 appl topical DAILY 60 grams 1RF
[2024-06-19 11:40] VITALS: BP 114/64; PULSE 64; RESP 16; TEMP 36.8; O2SAT 98; BMI 33.1
== END 2024-06-19 12:48 | disposition home or self-care (01) ==
LOC: HO.HMCFM 11:32
PROVIDERS: PCP Nurse Practitioner Family; Visit Provider Nurse Practitioner Family
DX: L71.9 Rosacea, unspecified (principal)

== ENCOUNTER → 2024-06-19 11:31 | Outpatient (BNVA) | payer BC, SELFPAY | PROVIDERS: PCP Nurse Practitioner Family; Visit Provider Nurse Practitioner Family ==

== ENCOUNTER 2024-06-30 08:47 | Outpatient (AMB) | payer BC, SELFPAY ==
--- NOTE | 2024-06-30 08:54 | A.OFFVIS_ITS ---
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 Reported as mild coronary calcification. CT scan scan was performed as a plan for workup for bariatric surgery which was not approved by the insurance company. Patient says that he was modified his lifestyle significantly has lost about 80 lb with lifestyle modification with improving his diet and exercising. He was reversed his prediabetic state to normal glycemia. He is also improved his blood pressure changes. With now his usual dose of losartan which is 75 mg he is feeling lightheaded. He is only taking 50 mg for last few days and is feeling better. His blood pressures been controlled. However says that he still notices when he goes up a hill for exercise compared to his partners he does get exertional shortness of breath which is noticeable and he was to stop. He does have any associated chest pain. However says this has improved since lost 80 lb but still present and he is concerned about it. He has last LDL of 105 done in December with a HDL of 32 with high LDL to HDL ratio. Patient denies any orthopnea, PND, leg edema. Denies any syncopal episodes. Denies any prolonged palpitation irregular heartbeat. [facility] Medical History Mild intermittent asthma ADHD Hypertension, essential Sleep apnea with use of continuous positive airway pressure (CPAP) ALEXA (obstructive sleep apnea) Surgical History Hx of colonoscopy History of carpal tunnel release History of eye surgery Family History Father No problems noted. Mother Breast cancer Sister In good health Brother Heart problem Other Mental health disorder Social History Household Members: Spouse Housing: House Patient Tobacco Use Status: Former Tobacco user Tobacco use type: Cigar e-Cigarette/Vaping Use: Never Used Second Hand Smoke Exposure: No service: Yes Current occupational status: employed Current occupation: [employer] Cognitive needs: No Hearing needs: No Vision needs: No Review of Systems Const Denies chills, Denies daytime sleepiness, Denies fatigue, Denies fever(s), Denies frequent falls, Denies poor appetite, Denies snoring, Denies stops breathing during sleep, Denies weakness, Denies weight gain and Denies weight loss Eyes Denies loss of vision ENT Denies dizziness and Denies hearing loss Card Denies chest pain, Denies claudication, Denies leg edema, Denies lightheadedness , Denies palpitations, Denies dyspnea, Denies dyspnea on exertion and Denies orthopnea Resp Denies cough, Denies excessive phlegm production, Denies dyspnea, Denies dyspnea on exertion, Denies snoring and Denies wheezing GI Denies abdominal pain, Denies hematochezia, Denies change in bowel habits, Denies nausea and Denies vomiting Denies dysuria and Denies urinary frequency Musc Denies arthralgias, Denies muscle weakness, Denies numbness and Denies other (frequent falls) Skin/Breast Denies nail changes and Denies rash Neuro Denies Abnormal speech present, Denies dizziness, Denies frequent falls, Denies loss of vision, Denies memory loss, Denies numbness and Denies weakness Psych Denies depression and Denies memory loss Endo Denies fatigue and Denies palpitations Kalpesh/Lymph Reports easy bruising and Reports other (anemia) Aller/Immun Denies wheezing Physical Exam Vital Signs: Last Vital Signs Pulse 73 06/30/24 08:55 BP 122/86 06/30/24 08:55 BMI result Body Mass Index 33.7 Const General: cooperative, comfortable, no acute distress, well developed, alert, awake, Physically active and well groomed Nutritional Appearance: well nourished and obese Orientation/consciousness: patient oriented x3 Limitations: no limitations HEENT Head: Yes normocephalic and Yes atraumatic Neck Neck: Yes trachea midline, Yes supple and Yes no JVD Resp Effort & Inspection: normal respiratory effort Auscultation: clear to auscultation bilaterally Cardio Jugular venous distension: no JVD Rate: regular rate Rhythm: regular rhythm Heart sounds: S1 normal heart sound present, S2 normal heart sound present, no click, no gallops and no murmurs GI Auscultation: normal bowel sounds Skin General skin exam: no rashes or lesions noted Neuro General: patient oriented x3 and no focal motor deficits Speech: No Abnormal speech present Extrem General: Yes no clubbing, cyanosis or edema Office Procedures EKG Details: EKG shows normal sinus rhythm with normal EKG 21722-[id number], Complete Assessment & Plan Assessment & Plan (1) Exertional dyspnea: Code(s): R06.09 - Other forms of dyspnea Category: Medical Plan: Patient was exertional shortness of breath despite losing weight and exercising regularly. Need to rule out underlying structural heart disease especially myocardial ischemia given his coronary artery calcium seen on the CAT scan. Given his baseline EKG being normal would suggest a treadmill exercise stress test to evaluate for exercise capacity and evaluate for myocardial ischemia. If this is within normal limits likelihood of obstructive CAD is low. Will also suggest an echocardiogram given his risk factors including obesity as well as hypertension to evaluate for LV systolic and diastolic function to evaluate for hypertensive heart disease as well as pulmonary hypertension. These tests will be scheduled in near future. (2) Coronary artery calcification seen on CAT scan: Code(s): I25.10 - Atherosclerotic heart disease of [place] coronary artery without angina pectoris Category: Medical Plan: Coronary artery calcification seen on non dedicated CT scan. Would like to obtain a dedicated coronary calcium score. Suggest to undergo a coronary calcium test in the near future. This will further risk stratify based on the level of the score as to intermediate risk of high risk. This was discussed with him. This is usually suggestive of presence of underlying coronary athe rosclerosis. We discussed about management based on the dedicated coronary calcium score our will require lipid modification. I have advised him to repeat his lipid panel along with other markers including C-reactive protein. Further treatment based on the findings. Will follow up in the clinic in 2 months time, sooner p.r.n.. Thank you for allowing me to partake in his care Coding Level of Care Code New Pt Level 4 (21512) Complex EM visit Add On G2211 Diagnoses Exertional dyspnea R06.09 Coronary artery calcification seen on CAT scan I25.10 CPT Codes EKG - CPT: 89943-[id number], Complete ([id number])
[2024-06-30 08:55] VITALS: BP 122/86; PULSE 73; BMI 33.7
== END 2024-06-30 09:32 | disposition home or self-care (01) ==
LOC: HO.HCS 08:47
PROVIDERS: PCP Nurse Practitioner Family; Visit Provider Internal Medicine Cardiovascular Disease
DX: R06.09 Other forms of dyspnea (principal); I25.10 Atherosclerotic heart disease of native coronary artery without angina pectoris
CPT/HCPCS: 93010; 99204

== ENCOUNTER → 2024-06-30 08:47 | Outpatient (BNVA) | payer BC, SELFPAY | PROVIDERS: PCP Nurse Practitioner Family; Visit Provider Internal Medicine Cardiovascular Disease | DX: I25.10 Atherosclerotic heart disease of native coronary artery without angina pectoris (principal); R06.09 Other forms of dyspnea | CPT/HCPCS: 93005 ==

== ENCOUNTER 2024-08-08 08:21 | Outpatient (AMB) | payer BC, SELFPAY ==
--- NOTE | 2024-08-08 08:22 | MHC.PC.OV ---
Vital Signs 08/08/24 08:27 08/08/24 08:52 Height 6 ft 2 in Weight 269 lb BMI 34.5 BP 134/80 128/88 Blood Pressure Location Rt brachial Rt brachial Position Sitting Sitting Respiration 16 Pulse 71 Pulse Source Pulse Oximeter Temp 97.8 F Temp Source Oral Pulse Oximetry (%) 98 Oxygen Delivery Method Room Air Intake Visit Reasons: 3 mos HTN, ADHD, depression Intake Note: patient here john paul 3 month follow up on HTN, ADHD, depression [employer] Required: No Allergies No Known Allergies Allergy (Verified 08/08/24 08:39) Medication List - Last Reviewed 08/08/24 by Antonella Blue MA albuterol sulfate 90 mcg/actuation (ProAir HFA) 2 puffs inhalation Q4-6H PRN dextroamphetamine-amphetamine 20 mg ER (Adderall XR) 40 mg (2 x 20 mg) PO QAM 28 days dorzolamide-timolol (PF) 2-0.5 % 1 drp ophthalmic (eye) BID losartan 25 mg PO DAILY losartan 50 mg PO DAILY 90 days minocycline 1.5% 1 appl topical DAILY sertraline 100 mg PO DAILY 30 days Tobacco use date assessed: 08/08/24 Dental Screening Dental Screen Date: 08/08/24 Did you have a dental visit in the last 12 months?: No Did you have a dental problem in the last 6 months where you did not have access to dental care?: No Was dental information given to patient?: Patient has dentist HPI HPI Comments History of Present Illness Details 58-year-old male presents for hypertension, ADHD, and depression follow-up. He admits to taking his medications as prescribed without adverse reactions. Reports depressive symptoms 2-3 times weekly since his last office visit. He attributes his symptoms to work related stressors. He notes that he has been taking that will be an easy option. However, it does not have any plan of committing suicide. He denies HI or AVH. He denies hypomania or khai symptoms. He notes that he drinks 1 and half pint of beer 3-4 days weekly. He denies recreational drug use. [facility] Medical History Mild intermittent asthma ADHD Hypertension, essential Sleep apnea with use of continuous positive airway pressure (CPAP) ALEXA (obstructive sleep apnea) Surgical History Hx of colonoscopy History of carpal tunnel release History of eye surgery Family History Father No problems noted. Mother Breast cancer Sister In good health Brother Heart problem Other Mental health disorder Social History Household Members: Spouse Housing: House Patient Tobacco Use Status: Former Tobacco user Tobacco use type: Cigar e-Cigarette/Vaping Use: Never Used Second Hand Smoke Exposure: No service: Yes Current occupational status: employed Current occupation: [employer] Cognitive needs: No Hearing needs: No Vision needs: No Questionnaire PHQ-9 Over the last 2 weeks, how often have you been bothered by any of the following problems? 1. Little interest or pleasure in doing things: several days 2. Feeling down, depressed, or hopeless: nearly every day 3. Trouble falling or staying asleep, or sleeping too much: more than half the days 4. Feeling tired or having little energy: nearly every day 5. Poor appetite or overeating: several days 6. Feeling bad about yourself - or that you are a failure or have let yourself or your family down: more than half the days 7. Trouble concentrating on things, such as reading the newspaper or watching television: several days 8. Moving or speaking so slowly that other people could have noticed. Or the opposite - being so fidgety or restless that you have been moving around a lot more than usual: not at all 9. Thoughts that you would be better off or of hurting yourself in some way: several days Total score: 14 Depression Screening Interpretation: Positive Depression Screening Follow-up: Existing condition, In treatment and Change in Medication Depression Screening Done: Yes 97454 - PHQ-9 Billing: Yes Source: Developed by Drs. Cooper Kearney, Makayla Herbert, Christophre Araya and colleagues, with an educational marques from [employer]. Thrive Questionnaire Date Thrive assessed: 05/05/24 I am a: Patient What is your living situation today?: I have a steady place to live Within the past 12 months, did the food you bought not last and you didn't have the money to get more?: Never true Within the past 12 months, did you worry whether your food would run out before you got money to buy more?: Never true Do you have trouble paying for medicines?: No Do you have trouble getting transportation to medical appointments?: No Do you have trouble paying your heating and electricity bill?: No Do you have trouble taking care of your child, family member or friend?: No Do you have trouble with day-to-day activities such as bathing, preparing meals, shopping, managing finances, etc.?: No Are you currently unemployed and looking for a job?: No Are you interested in more education?: No Please select the resources that you would like help with: None Currently or been in a relationship where the following occur: No concerns reported THRIVE Score: 0 AUDIT C Alcohol Use Questionnaire (AUDIT-C) 1. How often do you have a drink containing alcohol?: 4 or more times a week 2. How many drinks containing alcohol do you have on a typical day when you are drinking?: 1 or 2 3. How often do you have six or more drinks on one occasion?: Monthly Total Score: 6 Score Reviewed/Action Taken: Yes MG-7 AMB Questionnaire MG-7 Date MG - 7 assessed: 08/08/24 Feeling nervous, anxious, or on edge: 2 = More than half the days Not being able to stop or control worryin = Several days Worrying too much about different things: 1 = Several days Trouble relaxin = More than half the days Being so restless that it is hard to sit still: 1 = Several days Becoming easily annoyed or irritable: 3 = Nearly every day Feeling afraid as if something awful might happen: 3 = Nearly every day Total MG-7 score (0-4 normal; 5-9 mild; 10-14 moderate; 15-21 severe): 13 Source: Developed by Drs. Cooper Kearney, Makayla Herbert, Christopher Araya and colleagues, with an educational marques from [employer]. MG-7 Assessment Billing MG-7 Assessment Tool: MG-7 Assessment 20323 Review of Systems Const Details: Const Denies chills, Denies fatigue, Denies fever(s), Denies headache(s) and Denies weakness ENT Denies dizziness and Denies headache(s) Card Denies chest pain, Denies lightheadedness, Denies dyspnea and Denies other (Palpitations) Resp Denies cough, Denies dyspnea, Denies wheezing and Denies other ( shortness of breath) GI Denies abdominal pain, Denies melena, Denies hematochezia, Denies change in bowel habits, Denies dyspepsia and Denies nausea Denies hematuria and Denies dysuria Musc Denies abnormal gait, Denies myalgias, Denies arthralgias, Denies numbness and Denies tingling Skin/Breast Denies rash, Denies unusual bruising and Denies wounds Neuro Denies abnormal gait, Denies dizziness, Denies headache(s), Denies memory loss, Denies numbness, Denies Sensory deficit (Neuro), Denies tingling and Denies weakness Psych Denies anxiety, Reports depression, Denies memory loss Endo Denies cold intolerance, Denies fatigue, Denies heat intolerance, Denies polydipsia and Denies polyuria Aller/Immun Denies wheezing Physical exam (Primary Care) Vital Signs: Last Vital Signs Temp 97.8 F 08/08/24 08:27 Pulse 71 08/08/24 08:27 Resp 16 08/08/24 08:27 BP 128/88 08/08/24 08:52 Pulse Ox 98 08/08/24 08:27 Oxygen Delivery Method Room Air 08/08/24 08:27 BMI result Body Mass Index 34.5 Tobacco/Smoking Status: Tobacco use Status Tobacco use date assessed 08/08/24 08/08/24 08:33 Patient Tobacco Use Status Former Tobacco user 08/08/24 08:25 Tobacco use type Cigar 08/08/24 08:25 e-Cigarette/Vaping Use Never Used 08/08/24 08:25 PHQ-9: PHQ-9 Score PHQ-9: Total score 14 08/08/24 10:45 Depression Screening Interpretation: Positive Depression Screening Follow-up: Existing condition, In treatment and Change in Medication Thrive Assessment: Date of Thrive Assessment Date Thrive assessed 05/05/24 08/08/24 08:25 Currently or been in a relationship where the following occur: No concerns reported Const Other: General: no acute distress and well developed Nutritional Appearance: well nourished Orientation/consciousness: patient oriented x3 HENMT Head: Yes normocephalic and Yes atraumatic Eyes General: appearance normal, both eyes and all related structures Pupils: Equal, round and reactive pupils present EOM: EOMs intact bilaterally Resp Effort & Inspection: normal respiratory effort Auscultation: clear to auscultation bilaterally Cardio Rate: regular rate Rhythm: regular rhythm Heart sounds: S1 normal heart sound present, S2 normal heart sound present, no gallops, no murmurs and no rubs GI Palpation (GI): No Abdominal aortic bruit present, Soft to palpation, nontender, No hepatosplenomegaly present and No Rebound tenderness present Auscultation: normal bowel sounds General: Yes no CVA tenderness Back/Spine/Pelvis Back: no CVA tenderness Cervical Spine: cervical ROM normal and No Cervical spine tenderness Thoracic/Lumbar Spine: thoraco-lumbar ROM normal, No pain with thoraco-lumbar ROM, No thoracic spinal tenderness and No lumbar spinal tenderness Extrem General: Yes normal to inspection, No edema and No calf tenderness Skin General: warm and dry. Normal skin color. Normal skin turgor Neuro General: patient oriented x3, gait normal and no focal neuro deficit Cranial nerves: Yes Equal, round and reactive pupils present Cognition (Neuro): normal cognition Gait exam (Neuro): Normal gait present Sensory Exam: No Sensory deficit (Neuro) Psych Appearance: grossly normal Affect: normal affect Attitude: cooperative Thought process: Normal thought process present Results AMB Hemoglobin A1c AMB Hemoglobin A1c 5.5 % Last Edit by Antonella Blue MA on 08/08/24 09:13 Results Reviewed Results Reviewed: Laboratory Last Values Hgb A1c (Clinic) 5.5 % (4.0-6.0) 08/08/24 08:54 Coding Level of Care Code Est Pt Level 4 (69926) Diagnoses Hypertension, essential I10 Major depression F32.9 ADHD F90.9 Elevated fasting glucose R73.01 Additional Codes MG-7 Assessment Billing - MG-7 Assessment Tool: MG-7 Assessment 66749 ([id number]) PHQ-9 - 21875 - PHQ-9 Billing: Yes ([id number]) Assessment & Plan Assessment & Plan (1) Hypertension, essential: Code(s): I10 - Essential (primary) hypertension Category: Medical Plan: Resting blood pressure is 120/88, within goal of less than 140/90. Continue current treatment regimen. Low-sodium diet encouraged. Will continue to monitor. Verbalized understanding and agreed with the plan. (2) Major depression: Code(s): F32.9 - Major depressive disorder, single episode, unspecified Category: Medical Plan: Reports depressive symptoms 2-3 times weekly since his last office visit. He attributes his symptoms to work related stressors. He notes that he has been taking that will be an easy option. However, it does not have any plan of committing suicide. He denies HI or AVH. He denies hypomania or khai symptoms. PHQ-9 and MG-7 scores revealed moderate depression and anxiety. Will increase sertraline to 100 mg daily; advised to take as prescribed. Encouraged to cut down on his alcohol intake due to risk of increasing depression and anxiety symptoms. Routine exercise encouraged. Call 911 or the crisis line with worsening symptoms or active SI. Follow-up with PCP in 2 weeks or sooner as needed. Verbalized understanding and agreed with the plan. (3) ADHD: Code(s): F90.9 - Attention-deficit hyperactivity disorder, unspecified type Category: Medical Plan: Reports controlled symptoms. Continue current treatment regimen. Will continue to monitor. Verbalized understanding and agreed with the plan. (4) Elevated fasting glucose: Code(s): R73.01 - Impaired fasting glucose Category: Medical Plan: Recent fasting glucose is slightly elevated, 110. A1c today is normal, 5.5%. Healthy diet, including low carbs encouraged. Will monitor fasting glucose periodically or if present with related symptoms or concerns. Verbalized understanding and agreed with the plan. Orders: Orders AMB Hemoglobin A1c Today Z13.9 - Encounter for screening, unspecified Medications: New sertraline 100 mg PO DAILY 30 days 30 tabs 3RF Discontinued sertraline Discontinued Reason: Doctor's Order 50 mg PO DAILY 30 days 30 tabs 3RF
[2024-08-08 08:27] VITALS: BP 134/80; PULSE 71; RESP 16; TEMP 36.6; O2SAT 98; BMI 34.5
[2024-08-08 08:52] VITALS: BP 128/88
== END 2024-08-08 09:18 | disposition home or self-care (01) ==
LOC: HO.HMCFM 08:22
PROVIDERS: PCP Nurse Practitioner Family; Visit Provider Nurse Practitioner Family
DX: I10 Essential (primary) hypertension (principal); F32.9 Major depressive disorder, single episode, unspecified; F90.9 Attention-deficit hyperactivity disorder, unspecified type; R73.01 Impaired fasting glucose; Z13.9 Encounter for screening, unspecified

== ENCOUNTER → 2024-08-08 08:21 | Outpatient (BNVA) | payer BC, SELFPAY | PROVIDERS: PCP Nurse Practitioner Family; Visit Provider Nurse Practitioner Family | DX: I10 Essential (primary) hypertension (principal); F90.9 Attention-deficit hyperactivity disorder, unspecified type; F32.A Depression, unspecified; F32.9 Major depressive disorder, single episode, unspecified; R73.01 Impaired fasting glucose | CPT/HCPCS: 83036; 96127 ==

== ENCOUNTER → 2024-08-18 10:35 | Outpatient (REF) | payer BC, SELFPAY ==
--- NOTE | 2024-08-18 10:46 | CA_ITS ---
Acquisition Time: 2024-08-18 10:51:01 Total Exercise Time: 00:07:54 Test Indications: exertional dyspnea Medications: Protocol: CATHY Max HR: 139 BPM 85% of Pred: 163 BPM Max BP: 156/76 mmHG Max Work Load: 9.9 METS Exercise stress test with exercise 7 mins 54 secs of Cathy Protocol, chieving 84% MPHR, with reports of 1/10 left sided chest disocmfort, severe SOB, with very frequent PACs and PVCs, with normotensive response to exercise. Without EKG changes meeting criteria for ischemia. In recovery, breathing returned to baseline and CP resolved. Will order Holter and nuclear stress test for further eval. Test reviewed with Dr. Jennings. Referred By: Madhav Jennings Electronically Signed By: Pipo Benedict
== END ==
LOC: HO.CARD 10:35
PROVIDERS: PCP Nurse Practitioner Family; Visit Provider Internal Medicine Cardiovascular Disease
DX: R06.09 Other forms of dyspnea (principal); R00.2 Palpitations; I49.9 Cardiac arrhythmia, unspecified
CPT/HCPCS: 93017; 93242

== ENCOUNTER → 2024-08-18 10:46 | Outpatient (BNV) | payer BC, SELFPAY | PROVIDERS: PCP Nurse Practitioner Family | DX: R07.2 Precordial pain (principal); R06.02 Shortness of breath; I49.1 Atrial premature depolarization; I49.3 Ventricular premature depolarization | CPT/HCPCS: 93016; 93018 ==

== ENCOUNTER 2024-08-25 15:28 | Outpatient (AMB) | payer BC, SELFPAY ==
--- NOTE | 2024-08-25 09:22 | A.OFFPC_ITS ---
Intake Visit Reasons: 2 wks depression Intake Note: Jaren presents by phone for a 2 week depression follow up. Allergies No Known Allergies Allergy (Verified 08/08/24 08:39) Tobacco use date assessed: 08/25/24 Dental Screening Dental Screen Date: 08/25/24 [facility] Medical History Mild intermittent asthma ADHD Hypertension, essential Sleep apnea with use of continuous positive airway pressure (CPAP) ALEXA (obstructive sleep apnea) Surgical History Hx of colonoscopy History of carpal tunnel release History of eye surgery Family History Father No problems noted. Mother Breast cancer Sister In good health Brother Heart problem Other Mental health disorder Social History (Updated 08/25/24 @ 09:24 by Martha Benavides MA) Household Members: Spouse Housing: House Patient Tobacco Use Status: Former Tobacco user Tobacco use type: Cigar e-Cigarette/Vaping Use: Never Used Second Hand Smoke Exposure: No service: Yes Current occupational status: employed Current occupation: [employer] Cognitive needs: No Hearing needs: No Vision needs: No Questionnaire Thrive Questionnaire Date Thrive assessed: 05/05/24 MG-7 AMB Questionnaire MG-7 Date MG - 7 assessed: 08/08/24 Source: Developed by Drs. Cooper Kearney, Makayla Herbert, Christopher Araya and colleagues, with an educational marques from [employer]. Physical exam (Primary Care) Tobacco/Smoking Status: Tobacco use Status Tobacco use date assessed 08/08/24 08/08/24 08:33 Patient Tobacco Use Status Former Tobacco user 08/08/24 08:25 Tobacco use type Cigar 08/08/24 08:25 e-Cigarette/Vaping Use Never Used 08/08/24 08:25 Thrive Assessment: Date of Thrive Assessment Date Thrive assessed 05/05/24 08/08/24 08:25 Coding
--- NOTE | 2024-08-25 15:18 | A.OFFPC_ITS ---
Intake Visit Reasons: 2 wks depression Intake Note: Jaren presents for a [facility] appointment for a follow up to depression. PHQ 9 done. Patient stated that he has not thought that he would be better off or hurting himself in the last 4 days. Allergies No Known Allergies Allergy (Verified 08/25/24 15:20) Tobacco use date assessed: 08/25/24 Dental Screening Dental Screen Date: 08/25/24 Did you have a dental visit in the last 12 months?: No Did you have a dental problem in the last 6 months where you did not have access to dental care?: No Was dental information given to patient?: Patient has dentist HPI HPI Comments History of Present Illness Details 58-year-old male presents for a [facility] visit for depression follow- up. He admits to taking his medications as prescribed without adverse reactions. He notes that his anxiety and depressive symptoms have improved since sertraline was increased at his last visit. He denies SI/HI/AH/VH. He denies acute symptoms at this time. [facility] Medical History Mild intermittent asthma ADHD Hypertension, essential Sleep apnea with use of continuous positive airway pressure (CPAP) ALEXA (obstructive sleep apnea) Surgical History Hx of colonoscopy History of carpal tunnel release History of eye surgery Family History Father No problems noted. Mother Breast cancer Sister In good health Brother Heart problem Other Mental health disorder Social History (Updated 08/25/24 @ 15:22 by Martha Benavides MA) Household Members: Spouse Housing: House Alcohol intake: current Patient Tobacco Use Status: Former Tobacco user Tobacco use type: Cigar e-Cigarette/Vaping Use: Never Used Second Hand Smoke Exposure: No service: Yes Current occupational status: employed Current occupation: [employer] Cognitive needs: No Hearing needs: No Vision needs: No Questionnaire PHQ-9 Over the last 2 weeks, how often have you been bothered by any of the following problems? 1. Little interest or pleasure in doing things: not at all 2. Feeling down, depressed, or hopeless: several days 3. Trouble falling or staying asleep, or sleeping too much: more than half the days 4. Feeling tired or having little energy: not at all 5. Poor appetite or overeating: several days 6. Feeling bad about yourself - or that you are a failure or have let yourself or your family down: not at all 7. Trouble concentrating on things, such as reading the newspaper or watching television: not at all 8. Moving or speaking so slowly that other people could have noticed. Or the opposite - being so fidgety or restless that you have been moving around a lot more than usual: not at all 9. Thoughts that you would be better off or of hurting yourself in some way: several days Total score: 5 Depression Screening Interpretation: Positive Depression Screening Follow-up: Existing condition and In treatment Depression Screening Done: Yes 29005 - PHQ-9 Billing: Yes Source: Developed by Drs. Cooper Kearney, Makayla Herbert, Christopher Araya and colleagues, with an educational marques from [employer]. Thrive Questionnaire Date Thrive assessed: 05/05/24 MG-7 AMB Questionnaire MG-7 Date MG - 7 assessed: 08/08/24 Source: Developed by Drs. Cooper Kearney, Makayla Herbert, Christopher Araya and colleagues, with an educational marques from [employer]. Review of Systems Const Details: Denies chills, Denies fatigue, Denies fever(s), Denies headache(s) and Denies weakness Cardiac Denies chest pain, Denies claudication, Denies leg edema, Denies lightheadedness, Denies palpitations, Denies dyspnea, Denies dyspnea on exertion, Denies orthopnea and Denies other (Loss of consciousness) Resp Denies cough, Denies excessive phlegm production, Denies dyspnea, Denies dyspnea on exertion, Denies snoring and Denies wheezing Physical exam (Primary Care) Tobacco/Smoking Status: Tobacco use Status Tobacco use date assessed 08/25/24 08/25/24 15:24 Patient Tobacco Use Status Former Tobacco user 08/25/24 15:24 Tobacco use type Cigar 08/25/24 15:24 e-Cigarette/Vaping Use Never Used 08/25/24 15:24 PHQ-9: PHQ-9 Score PHQ-9: Total score 5 08/25/24 15:48 Depression Screening Interpretation: Positive Depression Screening Follow-up: Existing condition and In treatment Thrive Assessment: Date of Thrive Assessment Date Thrive assessed 05/05/24 08/25/24 15:24 Const Other: Patient is alert and oriented x3 Telehealth Telehealth Telehealth Platform: Telephone Location of provider rendering services: practice address Location of patient: address on file Patient Identification confirmed using: Name, : Yes Telehealth method: voice only Patient verbally consented to treatment: Yes Patient verbally consented to billing insurance company: Yes Patient informed of any privacy concerns related to visit: Yes Coding Level of Care Code Tele Est Pt Level 3 (75169) Diagnoses Major depression F32.9 Additional Codes PHQ-9 - 72922 - PHQ-9 Billing: Yes ([id number]) Time Spent (min) 15 Assessment & Plan Assessment & Plan (1) Major depression: Code(s): F32.9 - Major depressive disorder, single episode, unspecified Category: Medical Plan: Reports controlled anxiety and depressive symptoms. No SI/HI/AH/VH. PHQ-9 score revealed mild depression. Continue current treatment regimen. Routine exercise encouraged. Follow-up in 3 months for hypertension, ADHD, and depression. Return sooner with symptoms or concerns. Verbalized understanding and agreed with the treatment plan.
== END 2024-08-25 18:29 | disposition home or self-care (01) ==
LOC: HO.HMCFM 15:28
PROVIDERS: PCP Nurse Practitioner Family; Visit Provider Nurse Practitioner Family
DX: F32.9 Major depressive disorder, single episode, unspecified (principal)

== ENCOUNTER → 2024-08-25 15:28 | Outpatient (BNVA) | payer BC, SELFPAY | PROVIDERS: PCP Nurse Practitioner Family; Visit Provider Nurse Practitioner Family | DX: F32.9 Major depressive disorder, single episode, unspecified (principal); F41.9 Anxiety disorder, unspecified | CPT/HCPCS: 96127; 98966 ==

== ENCOUNTER → 2024-08-28 15:03 | Outpatient (REF) | payer BC, SELFPAY ==
--- NOTE | 2024-08-28 15:06 | CA_ITS ---
Transthoracic Echocardiogram Patient (Last, First, Middle): Jaren Crawford, Gender: Male Date of : 1965 Age: 58 Procedure Date: 08/28/2024 Procedure Type: Transthoracic Echocardiogram Location: OP Height: 185. cm Weight: 113.4 kg BSA: 2.36 m2 Heart Rate: 59 bpm BP: 132 / 80 mmHg Electromyographic Technician: JESSICA Mann MD: Madhav Jennings MD Recreational Aide: Madhav Jennings MD Symptoms: R06.09 - Other forms of dyspnea Study Quality: Adequate w/Contrast ECG Rhythm: Sinus Conclusions: - Essentially normal study Findings Procedure Information Contrast agent, definity, is being given per protocol without apparent complications. Left Ventricle Normal left ventricular size, thickness, and systolic function. The visually estimated ejection fraction is between 60-65%. Spectral Doppler is indicative of a normal filling pattern. Right Ventricle Normal right ventricular cavity size and systolic function. Atria The left atrium is likely dilated. There is no evidence of interatrial shunt. The right atrium is normal in size. Aortic Valve Normal aortic valve structure and function. There is no aortic valve stenosis. There is no aortic valve regurgitation. Mitral Valve Normal mitral valve structure and function. There is trace mitral valve regurgitation. There is no mitral valve stenosis. Pulmonic Valve The pulmonic valve was not well visualized. Tricuspid Valve Likely normal tricuspid valve structure and function. Tricuspid regurgitation envelope is inadequate for calculation of right ventricular systolic pressure. Great Vessels All visible segments of the aorta are normal in size. The pulmonary artery was not well visualized. Venous The inferior vena cava is normal in size and collapses greater than 50% with inspiration. Pericardium/Pleural There is no evidence of pericardial effusion. Prior Study Comparison No prior study available for comparison. Measurements 2D Linear Measurements IVSd: 0.91 0.6-0.9/0.6-1.0 cm LVIDd: 4.86 3.9-5.3/4.2-5.9 cm LVIDd Index: 2.06 2.4-3.2/2.2-3.1 cm/m2 LVIDs: 2.53 2.0-3.6 cm LVPWd: 1.06 0.7-1.1 cm LA Diam: 4.30 2.7-3.8/3.0-4.0 cm LAIDs Index: 1.82 1.5-2.3 cm/m2 LV Mass: 211.54 67-162/88-224 g LV Mass Index: 89.63 43-95/49-115 g/m2 LVOT Diam: 2.40 3.0+(-)1.3 cm 2D Systolic Function EF 4C: 56.50 >55% EF 2C: 60.50 >55% EF BiP: 60.30 >55% Mitral Valve MV Pk E: 0.94 MV PK A: 0.78 MV Decel Time: 245.00 E/A: 1.20 E'Lateral: 12.80 E'Medial: 7.51 E/E' Med: 12.60 E/E' Lat: 7.40 PHT: 72.00 MVA PHT: 3.06 Decel [place]: 3.85 Aortic Valve AoV Pk Sven: 1.37 AoV Mn Sven: 0.95 AoV VTI: 0.29 AoV Pk Grad: 8.00 Aov Mn Grad: 4.00 OLIVIA Cont.VTI: 3.77 LVOT LVOT Pk Sven: 1.14 LVOT Mn Sven: 0.73 LVOT VTI: 0.24 LVOT Pk Grad: 5.00 LVOT Mn Grad: 3.00 LVOT Diam: 2.40 LVOT Area: 4.52 Diastolic Function MV Pk E: 0.94 MV Pk A: 0.78 E/A: 1.20 E'Medial: 7.51 E/E' Med: 12.60 E' Laterial: 12.80 E/E' Lat: 7.40 Right Ventricle TAPSE (mm): 21.90 TVS' Sven: 11.50 Tricuspid Valve RA Press: 8.00 Great Vessels Aorta Sinus of Valsalva: 3.70 2.0-3.5 cm Ao Asc: 4.00 2.1-3.4 cm Ao Arch: 3.30 Pulmonary Valve PV Pk Sven: 1.03 Peak PV Grad: 4.00 Updated in Other Vendor System with Status of Final Madhav Jennings MD electronically signed on 08/29/2024 2:38:39 PM with status of Final
== END ==
LOC: HO.CARD 15:03
PROVIDERS: PCP Nurse Practitioner Family; Visit Provider Internal Medicine Cardiovascular Disease
DX: R06.09 Other forms of dyspnea (principal)
CPT/HCPCS: 93306; Q9957

== ENCOUNTER → 2024-08-28 15:06 | Outpatient (BNV) | payer BC, SELFPAY | PROVIDERS: PCP Nurse Practitioner Family; Visit Provider Internal Medicine Cardiovascular Disease | DX: R06.09 Other forms of dyspnea (principal) | CPT/HCPCS: 93306 ==

== ENCOUNTER 2024-09-11 15:41 | Outpatient (AMB) | payer BC, SELFPAY ==
--- NOTE | 2024-09-11 15:51 | MHC.PC.OV ---
Vital Signs 09/11/24 15:54 Height 6 ft 2 in Weight 274 lb 4 oz BMI 35.2 BP 120/66 Blood Pressure Location Lt brachial Position Sitting Respiration 16 Pulse 59 Pulse Source Pulse Oximeter Temp 97.7 F Temp Source Oral Pulse Oximetry (%) 59 L Oxygen Delivery Method Room Air Intake Visit Reasons: Nubness left hand Intake Note: patient here c/o numbness of left hand Drug And Alcohol Counsellor Required: No Allergies No Known Allergies Allergy (Verified 09/11/24 15:54) Medication List - Last Reconciled 09/11/24 by Lopez Van MD albuterol sulfate 90 mcg/actuation (ProAir HFA) 2 puffs inhalation Q4-6H PRN arm brace (Wrist Brace Medium) L wrist brace, Loosely at bedtime. 999 days dextroamphetamine-amphetamine 20 mg ER (Adderall XR) 40 mg (2 x 20 mg) PO QAM 28 days dorzolamide-timolol (PF) 2-0.5 % 1 drp ophthalmic (eye) BID losartan 25 mg PO DAILY losartan 50 mg PO DAILY 90 days mecobalamin (vitamin B12) 500 mcg PO DAILY 90 days metronidazole 1% 1 appl topical DAILY sertraline 100 mg PO DAILY 30 days Tobacco use date assessed: 09/11/24 Dental Screening Dental Screen Date: 09/11/24 Did you have a dental visit in the last 12 months?: No Did you have a dental problem in the last 6 months where you did not have access to dental care?: No Was dental information given to patient?: Patient has dentist HPI Nubness left hand HPI Details 58 y/o male presents today with complaints of numbness L hand. Notes numbness while driving long distances, sleeping. He notes hx of carpal tunnel R wrist. Notes hx of vitamin D deficiency. [facility] Medical History Mild intermittent asthma ADHD Hypertension, essential Sleep apnea with use of continuous positive airway pressure (CPAP) ALEXA (obstructive sleep apnea) Surgical History Hx of colonoscopy History of carpal tunnel release History of eye surgery Family History Father No problems noted. Mother Breast cancer Sister In good health Brother Heart problem Other Mental health disorder Social History (Updated 08/25/24 @ 15:22 by Martha Benavides MA) Household Members: Spouse Housing: House Alcohol intake: current Patient Tobacco Use Status: Former Tobacco user Tobacco use type: Cigar e-Cigarette/Vaping Use: Never Used Second Hand Smoke Exposure: No service: Yes Current occupational status: employed Current occupation: [employer] Cognitive needs: No Hearing needs: No Vision needs: No Questionnaire Thrive Questionnaire Date Thrive assessed: 05/05/24 I am a: Patient What is your living situation today?: I have a steady place to live Within the past 12 months, did the food you bought not last and you didn't have the money to get more?: Never true Within the past 12 months, did you worry whether your food would run out before you got money to buy more?: Never true Do you have trouble paying for medicines?: No Do you have trouble getting transportation to medical appointments?: No Do you have trouble paying your heating and electricity bill?: No Do you have trouble taking care of your child, family member or friend?: No Do you have trouble with day-to-day activities such as bathing, preparing meals, shopping, managing finances, etc.?: No Are you currently unemployed and looking for a job?: No Are you interested in more education?: No Please select the resources that you would like help with: None Currently or been in a relationship where the following occur: No concerns reported THRIVE Score: 0 GM-7 AMB Questionnaire MG-7 Date MG - 7 assessed: 08/08/24 Source: Developed by Drs. Cooper Kearney, Makayla Herbert, Christopher Araya and colleagues, with an educational marques from [employer]. Review of Systems Const Denies chills, Denies fatigue, Denies fever(s), Denies headache(s) and Denies weakness ENT Denies dizziness and Denies headache(s) Card Denies dyspnea Resp Denies cough, Denies dyspnea, Denies wheezing and Denies other (shortness of breath) Musc Denies numbness and Denies tingling Neuro Denies dizziness, Denies headache(s), Denies numbness, Denies tingling and Denies weakness Psych Denies anxiety and Denies depression Endo Denies fatigue Aller/Immun Denies wheezing Physical exam (Primary Care) Vital Signs: Last Vital Signs Temp 97.7 F 09/11/24 15:54 Pulse 59 09/11/24 15:54 Resp 16 09/11/24 15:54 BP 120/66 09/11/24 15:54 Pulse Ox 59 L 09/11/24 15:54 Oxygen Delivery Method Room Air 09/11/24 15:54 BMI result Body Mass Index 35.2 Tobacco/Smoking Status: Tobacco use Status Tobacco use date assessed 09/11/24 09/11/24 15:57 Patient Tobacco Use Status Former Tobacco user 09/11/24 15:57 Tobacco use type Cigar 09/11/24 15:57 e-Cigarette/Vaping Use Never Used 09/11/24 15:57 Thrive Assessment: Date of Thrive Assessment Date Thrive assessed 05/05/24 09/11/24 15:57 Currently or been in a relationship where the following occur: No concerns reported Const General: well developed; No acute distress Nutritional Appearance: well nourished Orientation/consciousness: patient oriented x3 HENMT Head: Yes normocephalic and Yes atraumatic Eyes General: appearance normal, both eyes and all related structures Pupils: Equal, round and reactive pupils present EOM: EOMs intact bilaterally Resp Effort & Inspection: normal respiratory effort Neuro General: patient oriented x3 and gait normal Cranial nerves: Yes Equal, round and reactive pupils present Psych Affect: normal affect Coding Level of Care Code Est Pt Level 3 (64238) Diagnoses Carpal tunnel syndrome G56.00 Assessment & Plan Assessment & Plan (1) Carpal tunnel syndrome: Code(s): G56.00 - Carpal tunnel syndrome, unspecified upper limb Category: Medical Plan: Numbness?and?tingling?in?left?hand?with?sleeping?and?also?driving?long?distances,?resting?hand?on?wheel. Likely?carpal?tunnel?syndrome?and?he?has?had?this?before?in?his?right?wrist Also?has?history?of?vitamin?B12?deficiency?listed?problems?list Will?give?him?a?script For?B12?advised?a?wrist?brace?is?loosely?at?bedtime Referred?to?hand?surgeon Orders: Referrals Dermatology Referral D48.5 - Neoplasm of uncertain behavior of skin Hand Surgery Referral G56.02 - Carpal tunnel syndrome, left upper limb Medications: New arm brace (Wrist Brace Medium) L wrist brace, Loosely at bedtime. 999 days 1 ea 0RF G56.02 - Carpal tunnel syndrome, left upper limb mecobalamin (vitamin B12) 500 mcg PO DAILY 90 tabs 3RF 90 days
[2024-09-11 15:54] VITALS: BP 120/66; PULSE 59; RESP 16; TEMP 36.5; O2SAT 59; BMI 35.2
== END 2024-09-11 16:06 | disposition home or self-care (01) ==
PROVIDERS: PCP Nurse Practitioner Family; Visit Provider Nurse Practitioner Family
DX: G56.00 Carpal tunnel syndrome, unspecified upper limb (principal)

== ENCOUNTER → 2024-09-11 15:41 | Outpatient (BNVA) | payer BC, SELFPAY | PROVIDERS: PCP Nurse Practitioner Family; Visit Provider Nurse Practitioner Family | DX: Z13.89 Encounter for screening for other disorder (principal) ==

== ENCOUNTER 2024-09-18 15:05 | Outpatient (AMB) | payer BC, SELFPAY ==
--- NOTE | 2024-09-18 15:14 | MHC.OFFVIS ---
Vital Signs 09/18/24 15:15 Height 6 ft 2 in Weight 262 lb 5.601 oz BMI 33.7 BP 122/70 Blood Pressure Location Lt brachial Position Sitting Pulse 72 Pulse Source Pulse Oximeter Intake Visit Reasons: 2m follow up/ETT/Echo/calcium score Allergies No Known Allergies Allergy (Verified 09/11/24 15:54) Medication List - Last Reconciled 09/18/24 by Madhav Jennings MD albuterol sulfate 90 mcg/actuation (ProAir HFA) 2 puffs inhalation Q4-6H PRN arm brace (Wrist Brace Medium) L wrist brace, Loosely at bedtime. 999 days dextroamphetamine-amphetamine 20 mg ER (Adderall XR) 40 mg (2 x 20 mg) PO QAM 28 days dorzolamide-timolol (PF) 2-0.5 % 1 drp ophthalmic (eye) BID losartan 25 mg PO DAILY losartan 50 mg PO DAILY 90 days mecobalamin (vitamin B12) 500 mcg PO DAILY 90 days metronidazole 1% 1 appl topical DAILY sertraline 100 mg PO DAILY 30 days HPI Comments Details: Jaren comes for follow-up. Underwent stress test which was abnormal with significant shortness of breath although no EKG changes. He is scheduled for myocardial perfusion imaging for which she had not come. He had also scheduled for coronary calcium score which she has not done as yet. His LDL is mildly elevated in the 100 range. His echocardiogram showed normal LV ejection fraction with no major structural abnormalities. Holter monitor shows occasional PACs and PVCs. He denies any orthopnea, PND, leg edema. [facility] Medical History Mild intermittent asthma ADHD Hypertension, essential Sleep apnea with use of continuous positive airway pressure (CPAP) ALEXA (obstructive sleep apnea) Surgical History Hx of colonoscopy History of carpal tunnel release History of eye surgery Family History Father No problems noted. Mother Breast cancer Sister In good health Brother Heart problem Other Mental health disorder Social History Household Members: Spouse Housing: House Alcohol intake: current Patient Tobacco Use Status: Current someday Tobacco user Tobacco use type: Cigar Cigarettes Per Day: 1 e-Cigarette/Vaping Use: Never Used Second Hand Smoke Exposure: No service: Yes Current occupational status: employed Current occupation: [employer] Cognitive needs: No Hearing needs: No Vision needs: No Review of Systems Eyes Reports no additional complaints ENT Reports no additional complaints Card Reports no additional complaints Neuro Denies Abnormal speech present Physical Exam Vital Signs: Last Vital Signs Pulse 72 09/18/24 15:15 BP 122/70 09/18/24 15:15 BMI result Body Mass Index 33.7 Const General: cooperative, comfortable, no acute distress, well developed, alert, awake, Physically active and well groomed Nutritional Appearance: well nourished and obese Orientation/consciousness: patient oriented x3 Limitations: no limitations HEENT Head: Yes normocephalic and Yes atraumatic Neck Neck: Yes trachea midline, Yes supple and Yes no JVD Resp Effort & Inspection: normal respiratory effort Auscultation: clear to auscultation bilaterally Cardio Jugular venous distension: no JVD Rate: regular rate Rhythm: regular rhythm Heart sounds: S1 normal heart sound present, S2 normal heart sound present, no click, no gallops and no murmurs GI Auscultation: normal bowel sounds Skin General skin exam: no rashes or lesions noted Neuro General: patient oriented x3 and no focal motor deficits Speech: No Abnormal speech present Extrem General: Yes no clubbing, cyanosis or edema Assessment & Plan Assessment & Plan (1) Exertional dyspnea: Code(s): R06.09 - Other forms of dyspnea Category: Medical Plan: Exertional shortness of breath in this middle-aged man with abnormal treadmill stress test. Would suggest a myocardial perfusion imaging to evaluate and rule out significant myocardial ischemia. Recommend to pursue this in the near future. Has no other structural abnormality to explain his symptoms. Cardiac arrhythmias with the occasional PACs in his PVCs also do not explain in his symptoms. At this point time possible related to deconditioning and weight. Will wait the results of myocardial perfusion imaging. (2) Coronary artery calcification seen on CAT scan: Code(s): I25.10 - Atherosclerotic heart disease of [place] coronary artery without angina pectoris Category: Medical Plan: Coronary artery calcification on CT scan suggestive of coronary atherosclerosis. Needs to be further defined with a coronary calcium score which has prognostic implications. Recommend to pursue coronary calcium score. Given presence of coronary atherosclerosis would suggest statin therapy to target goal LDL less than 55 mg/dL. This will be pursued through office. Continue aggressive blood pressure control. Target goal blood pressure less than 130/84. Will follow up in the clinic in few months after testing. Thank you for allowing me to partake in his care Coding Level of Care Code Est Pt Level 4 (40380) Complex EM visit Add On G2211 Diagnoses Exertional dyspnea R06.09 Coronary artery calcification seen on CAT scan I25.10
[2024-09-18 15:15] VITALS: BP 122/70; PULSE 72; BMI 33.7
== END 2024-09-18 15:41 | disposition home or self-care (01) ==
LOC: HO.HCS 15:05
PROVIDERS: PCP Nurse Practitioner Family; Visit Provider Internal Medicine Cardiovascular Disease
DX: R06.09 Other forms of dyspnea (principal); I25.10 Atherosclerotic heart disease of native coronary artery without angina pectoris
CPT/HCPCS: 99214

== ENCOUNTER 2024-09-29 08:01 | Outpatient (AMB) | payer BC, SELFPAY ==
[2024-09-29 08:03] VITALS: BMI 33.6
--- NOTE | 2024-09-29 08:03 | A.OFFVIS_ITS ---
Vital Signs 09/29/24 08:03 Height 6 ft 2 in Weight 262 lb BMI 33.6 Handedness Right Intake Visit Reasons: New Patient - Left Hand Numbness & Tingling Intake Note: Jaren is a 58 year old right hand dominant male who presents today for his left hand numbness and tingling. Patient reports that he has numbness and tingling in all of his fingers except the thumb, ths numbness occurs at night , while driving and, while holding his tablet. He denies pain but reports significant numbness. His symptoms have been present for about 6months to a year, worsening recently. No wrist brace use - this was ordered by his PCP but he did not get it. No EMG done Hx of CTS in the right hand that was resolved with Carpal Tunnel Release about 10+ years ago, done in [facility] [place]. Allergies No Known Allergies Allergy (Verified 09/29/24 08:17) HPI HPI New Patient - Left Hand Numbness & Tingling: Details: Jaren is a 58 year old right hand dominant male who presents today for his left hand numbness and tingling. Patient reports that he has numbness and tingling in all of his fingers except the thumb, ths numbness occurs at night , while driving and, while holding his tablet. He denies pain but reports significant n umbness. His symptoms have been present for about 6months to a year, worsening recently. No wrist brace use - this was ordered by his PCP but he did not get it. No EMG done Hx of CTS in the right hand that was resolved with Carpal Tunnel Release about 10+ years ago, done in [facility] [place]. [facility] Medical History Mild intermittent asthma ADHD Hypertension, essential Sleep apnea with use of continuous positive airway pressure (CPAP) ALEXA (obstructive sleep apnea) Surgical History Hx of colonoscopy History of carpal tunnel release History of eye surgery Family History Father No problems noted. Mother Breast cancer Sister In good health Brother Heart problem Other Mental health disorder Social History Household Members: Spouse Housing: House Alcohol intake: current Patient Tobacco Use Status: Current someday Tobacco user Tobacco use type: Cigar Cigarettes Per Day: 1 e-Cigarette/Vaping Use: Never Used Second Hand Smoke Exposure: No service: Yes Current occupational status: employed Current occupation: [employer] Cognitive needs: No Hearing needs: No Vision needs: No Review of Systems Const All systems reviewed & are unremarkable except as noted in HPI and below Physical Exam Vital Signs: BMI result Body Mass Index 33.6 Extrem Other: Neuro: Normal sensation of the tips of all digits of the left hand in the office today No thenar or intrinsic wasting. Good APB muscle firing and good finger cross. Vascular: Capillary refill brisk. ROM: Patient can make a fist and extend all their digits. Skin: No lacerations or abrasions noted. General: No ecchymosis. No erythema or evidence of infection. Assessment & Plan Assessment & Plan (1) Numbness and tingling in left hand: Code(s): R20.0 - Anesthesia of skin; R20.2 - Paresthesia of skin Category: Medical Plan 1. Numbness and tingling of left hand Intermittent, daily, worse at night Patient is educated about this condition Patient is educated about the typical recovery course At this time, patient is referred for EMG and nerve conduction study to assess the health of the nerves of the left upper extremity Follow-up after EMG and nerve conduction study for results review and discussion of further treatment options if indicated Patient is amenable to this plan Follow-up after EMG and nerve conduction study, sooner with any acute concerns Orders: Orders NE electromyogram (EMG) Today R20.0 - Anesthesia of skin, R20.2 - Paresthesia of skin NE nerve conduction velocity Today R20.0 - Anesthesia of skin, R20.2 - Paresthesia of skin Coding Level of Care Code New Pt Level 3 (17544) Diagnoses Numbness and tingling in left hand R20.0; R20.2
== END 2024-09-29 08:59 | disposition home or self-care (01) ==
PROVIDERS: PCP Nurse Practitioner Family
DX: R20.0 Anesthesia of skin (principal); R20.2 Paresthesia of skin
CPT/HCPCS: 99203

== ENCOUNTER → 2024-11-15 07:56 | Outpatient (REF) | payer BC, SELFPAY ==
--- NOTE | ~2024-11-15 | NM_ITS ---
EXERCISE MYOCARDIAL PERFUSION STUDY INDICATION: Shortness of breath TECHNIQUE: The patient was brought in for an exercise perfusion study on 11/15/2024. Patient performed exercise as per Miguel protocol and was injected 40 mCi of sestamibi once target heart rate was achieved. Images were obtained using the SPECT gamma camera interlaced with the gating device. Images were obtained in supine position. Resting perfusion study was performed on 11/16/2024. Patient was administered 40 mCi of sestamibi intravenously at rest. Images were then obtained in supine position. Total DLP 129 mGy-cm. Images were processed with the software and compared side to side in short axis, horizontal long axis and vertical long axis views. FINDINGS: Raw aquisition reviewed. The stress perfusion study showed mildly reduced tracer uptake at the apex, apical part of lateral wall. There is improvement with CT attenuation correction and hence could have components of soft tissue attenuation artifact. The gated study shows normal LV systolic function with calculated LVEF of 66%. LV cavity is normal in size. The gated study shows normal wall thickening and contraction of segments. Resting study shows mildly reduced tracer uptake in the apex but otherwise unremarkable. Gating at rest reveals normal wall motion with ejection fraction at 54%. The findings are consistent with small area of fixed appearing defect at the apex. No clear reversible defects. NM/NM cardiolite stress test IMPRESSION: 1. Myocardial perfusion imaging study shows small mostly fixed appearing defect at the apex. Possibly artifactual. Less likely to indicate prior nontransmural infarct. 2. Gated LVEF is 66% during stress and 54% during rest. 3. Transient ischemic dilatation not present. EKG component of the test reported separately. Electronically signed by: Conrad Stevens MD 11/16/2024 04:24 PM EDT
--- NOTE | 2024-11-15 07:59 | CA_ITS ---
Acquisition Time: 2024-11-15 08:04:19 Total Exercise Time: 00:10:00 Test Indications: Dyspnea Medications: SEE H&P Protocol: LEENA Max HR: 133 BPM 81% of Pred: 163 BPM Max BP: 150/72 mmHG Max Work Load: 10.1 METS Exercise stress test with exercise 10 mins of Leena Protocol, achieving 82% MPHR, with reports of 2.10 mid chest tightness, SOB and lightheadedness, with frequent PACs and PVCs, with normotensive response to exercise. Without any EKG changes meeting crietria for ischemia. In recovry, chest tightness and lightheadedness resolved, breathing returned to baseline. Nuclear images pending. Test reviewed with Dr. Stevens. Referred By: Pipo Benedict Electronically Signed By: Pipo Benedict
== END ==
LOC: HO.CARD 07:56
PROVIDERS: PCP Nurse Practitioner Family
DX: R94.39 Abnormal result of other cardiovascular function study (principal); R06.09 Other forms of dyspnea
CPT/HCPCS: 78452; 93017; A9500

== ENCOUNTER → 2024-11-15 07:59 | Outpatient (BNV) | payer BC, SELFPAY | PROVIDERS: PCP Nurse Practitioner Family | DX: R06.02 Shortness of breath (principal) | CPT/HCPCS: 78452; 93016; 93018 ==

== ENCOUNTER 2024-12-01 14:25 | Outpatient (REF) | payer BC, SELFPAY ==
--- NOTE | 2024-12-01 14:27 | EMG_ITS ---
Chief complaint: Left hand numbness Reason for referral: Evaluate for Carpal Tunnel Syndrome Referred by: Miguel SCHILLING Procedure done: Left upper extremity NCS/EMG Precautions and/or limitations: None The limb temperature was monitored continuously and remained between 32-36 degrees C during the performance of the NCS. Nerve Conduction Studies Anti Sensory Summary Table ?Stim Site NR Onset (ms) Norm Onset (ms) Peak (ms) Norm Peak (ms) O-P Amp (?V) Norm O-P Amp Site1 Site2 Delta-0 (ms) Dist (cm) Sven (m/s) Norm Sven (m/s) Left Median Anti Sensory (2nd Digit) Wrist ? 3.2 4.0 <3.6 23.6 >10 Wrist 2nd Digit 3.2 14.0 44 Left Radial Anti Sensory (Thumb) Forearm ? 1.5 2.0 <3.1 31.1 Forearm Thumb 1.5 0.0 Left Ulnar Anti Sensory (5th Digit) Wrist ? 2.4 3.0 <3.7 15.2 >15.0 Wrist 5th Digit 2.4 14.0 58 Motor Summary Table ?Stim Site NR Onset (ms) Norm Onset (ms) O-P Amp (mV) Norm O-P Amp iAmp (mV) Amp (1st) (%) Site1 Site2 Delta-0 (ms) Dist (cm) Sven (m/s) Norm Sven (m/s) Left Median Motor (Abd Poll Brev) Wrist ? 4.2 <3.9 11.6 >4.5 13.4 100.0 Elbow Wrist 4.0 22.0 55 >45 Elbow ? 8.2 11.1 12.9 95.7 Left Ulnar Motor (Abd Dig Minimi) Wrist ? 2.7 <3.0 8.8 >5 9.5 100.0 B Elbow Wrist 3.4 22.0 65 >45 B Elbow ? 6.1 8.2 9.1 93.2 A Elbow B Elbow 1.8 10.0 56 >45 A Elbow ? 7.9 7.7 8.5 87.5 EMG ?Side Muscle Nerve Root Ins Act Fibs Psw Amp Dur Poly Recrt Int Pat Comment Left 1stDorInt Ulnar C8-T1 Nml Nml Nml Nml Nml 0 Nml Complete Left FlexCarRad Median C6-7 Nml Nml Nml Nml Nml 0 Nml Complete Left Biceps Musculocut C5-6 Nml Nml Nml Nml Nml 0 Nml Complete Left Triceps Radial C6-7-8 Nml Nml Nml Nml Nml 0 Nml Complete Left Deltoid Axillary C5-6 Nml Nml Nml Nml Nml 0 Nml Complete FINDINGS: Left median motor nerve showed prolonged distal latency, normal amplitude and normal conduction velocity. Left median sensory nerve showed prolonged peak latency. All other nerves tested were within normal. Concentric needle EMG was performed in selected muscles of the left upper extremity. Study did not reveal signs of electric abnormalities as shown in the table above. IMPRESSION: 1. This is an abnormal study. 2. There is electrodiagnostic evidence for left moderate-severe median neuropathy at the wrist, consistent with carpal tunnel syndrome. 3. There is no electrodiagnostic evidence for ulnar neuropathy, brachial plexopathy, or cervical radiculopathy. Thank you for your kind referral. Basilia San MD, MEAGAN Board Certified, [place] Board [employer] Physical Medicine and Rehabilitation (ABPMR) Board Certified, [place] Board of Electrodiagnostic Medicine (ABEM) [place] [id number] [facility]
== END 2024-12-01 14:26 | disposition home or self-care (01) ==
LOC: HO.NEURO 14:25
PROVIDERS: PCP Nurse Practitioner Family
DX: R20.0 Anesthesia of skin (principal); R20.2 Paresthesia of skin; R94.131 Abnormal electromyogram [EMG]
CPT/HCPCS: 95886; 95909

== ENCOUNTER → 2024-12-01 14:27 | Outpatient (BNV) | payer BC, SELFPAY | PROVIDERS: PCP Nurse Practitioner Family; Visit Provider Physical Medicine & Rehabilitation | DX: G56.02 Carpal tunnel syndrome, left upper limb (principal); G62.89 Other specified polyneuropathies | CPT/HCPCS: 95886; 95909 ==

== ENCOUNTER 2024-12-12 13:54 | Outpatient (AMB) | payer BC, SELFPAY ==
[2024-12-12 13:58] VITALS: BP 114/74; PULSE 77; BMI 35.9
--- NOTE | 2024-12-12 13:58 | MHC.OFFVIS ---
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 999 days azelaic acid 15% 1 appl topical BID dextroamphetamine-amphetamine 20 mg ER (Adderall XR) 40 mg (2 x 20 mg) PO QAM 28 days dorzolamide-timolol (PF) 2-0.5 % 1 drp ophthalmic (eye) BID losartan 50 mg PO DAILY 90 days losartan 25 mg PO DAILY mecobalamin (vitamin B12) 500 mcg PO DAILY 90 days sertraline 100 mg PO DAILY 30 days HPI Comments Details: Jaren comes for follow-up after recent coronary calcium score which was significantly elevated at 576 predominantly in the LAD and RCA distribution. He subsequently underwent a myocardial perfusion imaging given high calcium burden which showed no evidence of significant ischemia. Did have chest tightness with exercise but thinks that this is more related to shortness of breath. He says whenever he walks up a flight of stairs usually gets short of breath. He denies any worsening chest pain syndrome. His echocardiogram had showed normal study with no wall motion abnormality. He is currently thinking about participate in weight loss program. Currently not on statin therapy. He says blood pressures been well controlled. Overall no new symptoms. [facility] Medical History (Updated 12/12/24 @ 14:21 by Madhav Jennings MD) CAD (coronary artery disease) Mild intermittent asthma ADHD Hypertension, essential Sleep apnea with use of continuous positive airway pressure (CPAP) ALEXA (obstructive sleep apnea) Surgical History Hx of colonoscopy History of carpal tunnel release History of eye surgery Family History Father No problems noted. Mother Breast cancer Sister In good health Brother Heart problem Other Mental health disorder Social History Household Members: Spouse Housing: House Alcohol intake: current Patient Tobacco Use Status: Current someday Tobacco user Tobacco use type: Cigar Cigarettes Per Day: 1 e-Cigarette/Vaping Use: Never Used Second Hand Smoke Exposure: No service: Yes Current occupational status: employed Current occupation: [employer] Cognitive needs: No Hearing needs: No Vision needs: No Review of Systems Const Denies chills, Denies fatigue, Denies fever(s), Denies frequent falls, Denies weakness, Denies weight gain and Denies weight loss ENT Denies dizziness Card Denies chest pain, Denies leg edema, Denies lightheadedness, Denies palpitations, Denies dyspnea, Denies dyspnea on exertion, Denies orthopnea and Denies other (loss of consciousness) Resp Denies cough, Denies dyspnea and Denies dyspnea on exertion GI Denies hematochezia and Denies change in stool character Musc Denies abnormal gait, Denies muscle weakness, Denies numbness, Denies radiating pain into limb and Denies tingling Neuro Denies Abnormal speech present, Denies abnormal gait, Denies dizziness, Denies frequent falls, Denies numbness, Denies tingling and Denies weakness Endo Denies fatigue and Denies palpitations Physical Exam Vital Signs: Last Vital Signs Pulse 77 12/12/24 13:58 BP 114/74 12/12/24 13:58 BMI result Body Mass Index 35.9 Const General: cooperative, comfortable, no acute distress, well developed, alert, awake, Physically active and well groomed Nutritional Appearance: well nourished and obese Orientation/consciousness: patient oriented x3 Limitations: no limitations HEENT Head: Yes normocephalic and Yes atraumatic Neck Neck: Yes trachea midline, Yes supple and Yes no JVD Resp Effort & Inspection: normal respiratory effort Auscultation: clear to auscultation bilaterally Cardio Jugular venous distension: no JVD Rate: regular rate Rhythm: regular rhythm Heart sounds: S1 normal heart sound present, S2 normal heart sound present, no click, no gallops and no murmurs GI Auscultation: normal bowel sounds Skin General skin exam: no rashes or lesions noted Neuro General: patient oriented x3 and no focal motor deficits Speech: No Abnormal speech present Extrem General: Yes no clubbing, cyanosis or edema Assessment & Plan Assessment & Plan (1) CAD (coronary artery disease): Comment: Extensive two-vessel calcium score at 578 suggestive of significant atherosclerotic disease Code(s): I25.10 - Atherosclerotic heart disease of sun'aq coronary artery without angina pectoris Category: Medical Plan: Extensive coronary calcium in two-vessel distribution with normal myocardial perfusion study. Patient does have symptoms exertional shortness of breath and chest tightness. However this could be in absence of myocardial ischemia related to weight and hypotension. I have suggested him to participate in regular physical activity and weight loss program. If he persists with continued exertional chest pain or tightness/worsening symptoms, will pursue invasive cardiac catheterization. For now he requires aggressive medical therapy. Pathophysiology of coronary atherosclerosis was discussed in details. I would suggest him low-dose aspirin therapy and also suggest high-intensity statin therapy to target goal LDL less than 55 mg/dL. Have prescribed him atorvastatin 40 mg daily. Follow-up lipid panel and CRP in 2 months time. Continue aggressive blood pressure control. Advised to monitor blood pressure at home maintain a goal. Goal blood pressure less than 130/84. Follow up in the clinic in 1 year's time, sooner PRN. Thank you for allowing me to partake in his care Orders: Orders CRP High Sensitivity 2 Months E78.5 - Hyperlipidemia, unspecified, I25.10 - Atherosclerotic heart disease of sun'aq coronary artery without angina pectoris Lipid Panel 2 Months I25.10 - Atherosclerotic heart disease of sun'aq coronary artery without angina pectoris Medications: New atorvastatin (Lipitor) 40 mg PO DAILY 30 tabs 5RF aspirin (Ecotrin Low Strength) 81 mg PO DAILY 30 tabs 5RF Coding Level of Care Code Est Pt Level 4 (31478) Complex EM visit Add On G2211 Diagnoses CAD (coronary artery disease) I25.10
== END 2024-12-12 14:23 | disposition home or self-care (01) ==
LOC: HO.HCS 13:55
PROVIDERS: PCP Nurse Practitioner Family; Visit Provider Internal Medicine Cardiovascular Disease
DX: I25.10 Atherosclerotic heart disease of native coronary artery without angina pectoris (principal)
CPT/HCPCS: 99214

== ENCOUNTER 2024-12-18 11:05 | Outpatient (AMB) | payer BC, SELFPAY ==
--- NOTE | 2024-12-18 11:16 | MHC.OFFVIS ---
Vital Signs 12/18/24 11:21 Height 6 ft 2 in Weight 274 lb BMI 35.2 Intake Visit Reasons: OV-EMG review bilat hands per zz Intake Note: Jaren is a 59 year old right hand dominant male who presents today for an EMG Review of his Left Hand Numbness and Tingling. Patient was last evaluated on 09/29/24. At that time he reported intermittent, daily symptoms, worse at night. Patient reports today his symptoms are pretty much everyday , primarily affecting his left index, middle, and ring finger. Patient is interested on discussing surgery today. Patient has a history of Pre-Diabetes. Most recent A1C 5.5% -08/08/24. Allergies No Known Allergies Allergy (Verified 12/18/24 11:20) HPI HPI OV-EMG review bilat hands per zz: Details: Jaren is a 59 year old right hand dominant male who presents today for an EMG Review of his Left Hand Numbness and Tingling. Patient was last evaluated on 09/29/24. At that time he reported intermittent, daily symptoms, worse at night. Patient reports today his symptoms are pretty much everyday , primarily affecting his left index, middle, and ring finger. Patient is interested on discussing surgery today. Patient has a history of Pre-Diabetes. Most recent A1C 5.5% -08/08/24. [facility] Medical History (Updated 12/12/24 @ 14:21 by Madhav Jennings MD) CAD (coronary artery disease) Mild intermittent asthma ADHD Hypertension, essential Sleep apnea with use of continuous positive airway pressure (CPAP) ALEXA (obstructive sleep apnea) Surgical History Hx of colonoscopy History of carpal tunnel release History of eye surgery Family History Father No problems noted. Mother Breast cancer Sister In good health Brother Heart problem Other Mental health disorder Social History (Updated 12/18/24 @ 11:20 by DOROTHY Dawn) Household Members: Spouse Housing: House Alcohol intake: current Alcohol intake frequency: a few times a week Patient Tobacco Use Status: Current someday Tobacco user Tobacco use type: Cigar Cigarettes Per Day: 1 e-Cigarette/Vaping Use: Never Used Second Hand Smoke Exposure: No service: Yes Current occupational status: employed Current occupation: [employer] Cognitive needs: No Hearing needs: No Vision needs: No Review of Systems Const All systems reviewed & are unremarkable except as noted in HPI and below Physical Exam Vital Signs: BMI result Body Mass Index 35.2 Extrem Other: Neuro: Normal sensation of the tips of all digits of the left hand in the office today No thenar or intrinsic wasting. Good APB muscle firing and good finger cross. Vascular: Capillary refill brisk. ROM: Patient can make a fist and extend all their digits. Skin: No lacerations or abrasions noted. General: No ecchymosis. No erythema or evidence of infection. Assessment & Plan Assessment & Plan (1) Carpal tunnel syndrome of left wrist: Code(s): G56.02 - Carpal tunnel syndrome, left upper limb Category: Medical Plan 1. Left carpal tunnel syndrome intermittent, daily, worse at night I educated the patient about the condition. I discussed both operative and nonoperative treatment options. The patient would like to proceed with surgery. The risks and benefits of operative treatment were discussed with the patient and the patient wishes to proceed with surgery. These risks include, but are not limited to, risk of damage to blood vessels, nerves, tendons, infection, recurrence, incomplete relief of preoperative symptoms, persistent pain, possible need for further surgery, and the risks associated with regional blocks and/or anesthesia. Plan is to take the patient to the operating room at some point in the next few weeks for the following procedures: 1. Left carpal tunnel release under local anesthesia All of the preoperative paperwork including the consent was discussed today. All of the patient's questions were answered in the clinic today. The patient understands that they will be in contact with our salesperson surgical appliances to discuss scheduling their procedure. Patient reports prediabetes, last A1c 5.5 Denies blood thinners, asthma, heart issues, lung issues, kidney issues, or current smoking. Coding Level of Care Code Est Pt Level 4 (57684) Diagnoses Carpal tunnel syndrome of left wrist G56.02
[2024-12-18 11:21] VITALS: BMI 35.2
== END 2024-12-18 12:06 | disposition home or self-care (01) ==
LOC: HO.HOS 11:05
PROVIDERS: PCP Nurse Practitioner Family
DX: G56.02 Carpal tunnel syndrome, left upper limb (principal)
CPT/HCPCS: 99214

== ENCOUNTER 2024-12-25 09:47 | Day surgery (SDC) | payer BC, SELFPAY ==
[2024-12-25 12:57] VITALS: BP 118/79; PULSE 96; RESP 14; TEMP 36.7; O2SAT 96; BMI 36.5
--- NOTE | 2024-12-25 13:07 | MHC.SHP ---
Pre-Procedural Eval Section A - 24 Hr Update-Section A only Date of Service: 12/25/24 The patient is an INPATIENT: No Changes since office visit: No Cold of Flu in the past 2 weeks, No New Medical Problems, No Changes in Medication and No Patient answered all questions The patient has been examined within 24 hours of the surgical procedure. The History & Physical has been completed within 30 days and I have reviewed it.: Yes Section B - Complete if H&P > 30 days Chief Complaint: Carpal tunnel syndrome, left upper limb Allergies: Allergies Allergy/AdvReac Type Severity Reaction Status Date / Time No Known Allergies Allergy Verified 12/18/24 11:20 Plan Diagnosis/Plan: Unchanged I have reviewed the history and physical and performed a pertinent physical examination on my patient. No changes have occurred unless specified. Time Spent With Patient Time: Total time managing care of this patient today ____ minutes.
--- NOTE | 2024-12-25 13:07 | W.PM.OPN ---
Operative Note Operative Note Date of Service: 12/25/24 Narrative: Preop diagnosis: 1. Left Carpal tunnel syndrome Postop diagnosis: same Procedure: 1. Left Carpal tunnel release Surgeon: Bisi Scott MD Academic Intern: None Anesthesia: local block using 1% lidocaine with epinephrine Findings: Thickened transverse carpal ligament. EBL: Less than 5 mL Specimens: None Complications: None Disposition: Brought to recovery room in stable condition Plan: Follow-up for 10-14 days for wound check and suture removal Indications: The patient is 59 years old, with left carpal tunnel syndrome that has been unresponsive to nonoperative management. The risks and benefits of operative treatment including but not limited to risk of damage to blood vessels, nerves, tendons, infection, persistent pain, persistent symptoms, or possible need for additional surgery were discussed with the patient and the patient wishes to proceed with surgery. Procedure: Once consent was obtained a local block was performed using a combination of 1% lidocaine with epinephrine. The patient was then brought back to the operating suite and placed on the operative table in supine position. The left upper extremity was prepped and draped in a standard surgical fashion. Once assured that we had a good block, a 2.0 cm longitudinal incision was made centered over the carpal tunnel. The incision was made through the skin to the subcutaneous tissues using a #15 blade. Dissection was made down to the level of the transverse carpal ligament with care being taken to protect the palmar cutaneous nerve. Once the transverse carpal ligament was clearly visualized, a longitudinal incision was made in the transverse carpal ligament 1st using a #15 blade, then using tenotomy scissors under direct visualization. Care was taken to look for and protect the motor branch of the median nerve when seen in this area. Once satisfied with our carpal tunnel release the wound was copiously irrigated with normal saline and hemostasis was obtained with a brief period of local pressure. The skin edges were reapproximated with some 5.0 nylon suture material and a sterile dressing was applied. The patient appears to have tolerated the procedure well and with no complications. All digits were well vascularized at the conclusion of the case.
[2024-12-25 13:33] VITALS: BP 126/72; PULSE 61; RESP 16; O2SAT 96
== END 2024-12-25 13:47 | disposition home or self-care (01) ==
PROVIDERS: PCP Nurse Practitioner Family; Visit Provider Orthopaedic Surgery
PROC: (CPT 64721; principal; 2024-12-25 13:40)
DX: G56.02 Carpal tunnel syndrome, left upper limb (principal); I10 Essential (primary) hypertension; J45.20 Mild intermittent asthma, uncomplicated; I25.10 Atherosclerotic heart disease of native coronary artery without angina pectoris; G47.33 Obstructive sleep apnea (adult) (pediatric)
CPT/HCPCS: 64721; J0165; J2003; J2004

== ENCOUNTER → 2024-12-25 09:47 | Outpatient (BNV) | payer BC, SELFPAY | PROVIDERS: PCP Nurse Practitioner Family; Visit Provider Orthopaedic Surgery | DX: G56.02 Carpal tunnel syndrome, left upper limb (principal) | CPT/HCPCS: 64721 ==

== ENCOUNTER 2025-01-09 14:14 | Outpatient (AMB) | payer BC, SELFPAY ==
[2025-01-09 14:19] VITALS: BMI 36.5
--- NOTE | 2025-01-09 14:19 | A.OFFVIS_ITS ---
Vital Signs 01/09/25 14:19 Height 6 ft 1 in Weight 277 lb BMI 36.5 Intake Visit Reasons: PO-Lt CTR 12/25/24 Intake Note: Jaren is a 59 year old right hand dominant male who presents today post- operatively status post Left Carpal Tunnel Release performed by Dr. Scott on 12/25/24. Patient reports he is doing well. He denies numbness or tingling. He has discontinued pain medications. Sutures removed and steri strips applied. Allergies No Known Allergies Allergy (Verified 01/12/25 10:50) HPI HPI PO-Lt CTR 12/25/24: Details: Jaren is a 59 year old right hand dominant male who presents today post- operatively status post Left Carpal Tunnel Release performed by Dr. Scott on 12/25/24. Patient reports he is doing well. He denies numbness or tingling. He has discontinued pain medications. Sutures removed and steri strips applied. [facility] Medical History (Updated 12/12/24 @ 14:21 by Madhav Jennings MD) CAD (coronary artery disease) Mild intermittent asthma ADHD Hypertension, essential Sleep apnea with use of continuous positive airway pressure (CPAP) ALEXA (obstructive sleep apnea) Surgical History Hx of colonoscopy History of carpal tunnel release History of eye surgery Family History Father No problems noted. Mother Breast cancer Sister In good health Brother Heart problem Other Mental health disorder Social History (Updated 12/18/24 @ 11:20 by DOROTHY Dawn) Household Members: Spouse Housing: House Alcohol intake: current Alcohol intake frequency: a few times a week Comment: Counts correct Patient Tobacco Use Status: Current someday Tobacco user Tobacco use type: Cigar Cigarettes Per Day: 1 e-Cigarette/Vaping Use: Never Used Second Hand Smoke Exposure: No service: Yes Current occupational status: employed Current occupation: [employer] Cognitive needs: No Hearing needs: No Vision needs: No Review of Systems Const All systems reviewed & are unremarkable except as noted in HPI and below Physical Exam Vital Signs: BMI result Body Mass Index 36.5 Extrem Other: Patient is alert, oriented, and in no acute distress. Neuro: Normal sensation of the tips of all digits of the left hand at this time Vascular: Cap refill brisk Pain: No tenderness to palpation about the incision site on volar left wrist No pain with range of motion of the left hand ROM: Patient is able to make a closed fist and extend all digits of the left hand fully and without difficulty Skin: Well approximated and well healing incision site noted on the volar left wrist No lacerations or abrasions. General: No ecchymosis, erythema, or evidence of infection. Psych: Appears grossly normal Affect normal Attitude cooperative Assessment & Plan Assessment & Plan (1) Carpal tunnel syndrome of left wrist: Code(s): G56.02 - Carpal tunnel syndrome, left upper limb Category: Medical Plan 1. Status post left carpal tunnel release DOS 12/25/2024 Patient appears to be recovering well postoperatively Patient is educated about the typical recovery course Sutures removed, Steri-Strips applied without issue No under water times one-week, 2 lb weight limit x2 weeks Patient understands this in his amenable to this plan Follow-up as needed with any acute concerns Coding Level of Care Code Global (92656) Diagnoses Carpal tunnel syndrome of left wrist G56.02
== END 2025-01-09 14:42 | disposition home or self-care (01) ==
LOC: HO.HOS 14:15
PROVIDERS: PCP Nurse Practitioner Family
DX: G56.02 Carpal tunnel syndrome, left upper limb (principal)
CPT/HCPCS: 99024

== ENCOUNTER 2025-01-12 10:32 | Outpatient (AMB) | payer BC, SELFPAY ==
--- NOTE | 2025-01-12 10:34 | A.OFFPC_ITS ---
Vital Signs 01/12/25 10:44 Height 6 ft 1 in Weight 284 lb 4 oz BMI 37.5 BP 126/70 Blood Pressure Location Rt brachial Position Sitting Respiration 16 Pulse 65 Pulse Source Pulse Oximeter Temp 97.9 F Temp Source Oral Pulse Oximetry (%) 98 Oxygen Delivery Method Room Air Intake Visit Reasons: med review Intake Note: patient here for follow up on meds Director Of Leadership Development Required: No Allergies No Known Allergies Allergy (Verified 01/12/25 10:50) Medication List - Last Reconciled 01/12/25 by Ray Logan CNP albuterol sulfate 90 mcg/actuation (ProAir HFA) 2 puffs inhalation Q4-6H PRN arm brace (Wrist Brace Medium) L wrist brace, Loosely at bedtime. 999 days aspirin (Ecotrin Low Strength) 81 mg PO DAILY atorvastatin (Lipitor) 40 mg PO DAILY azelaic acid 15% 1 appl topical BID dextroamphetamine-amphetamine 20 mg ER (Adderall XR) 40 mg (2 x 20 mg) PO QAM 28 days dorzolamide-timolol (PF) 2-0.5 % 1 drp ophthalmic (eye) BID losartan 50 mg PO DAILY 90 days losartan 25 mg PO DAILY mecobalamin (vitamin B12) 500 mcg PO DAILY 90 days sertraline 100 mg PO DAILY 30 days Tobacco use date assessed: 01/12/25 Dental Screening Dental Screen Date: 01/12/25 Did you have a dental visit in the last 12 months?: No Did you have a dental problem in the last 6 months where you did not have access to dental care?: No Was dental information given to patient?: Patient has dentist HPI HPI Comments History of Present Illness Details 59-year-old male presents for hypertensi on, ADHD, and depression follow-up. He admits to taking his medications as prescribed without adverse reactions. He notes that he has been making healthy lifestyle changes. Reports controlled depressive and ADHD symptoms. He denies unintended weight loss, loss of appetite, or sleep disturbance. No acute symptoms at this time. [facility] Medical History (Updated 12/12/24 @ 14:21 by Madhav Jennings MD) CAD (coronary artery disease) Mild intermittent asthma ADHD Hypertension, essential Sleep apnea with use of continuous positive airway pressure (CPAP) ALEXA (obstructive sleep apnea) Surgical History Hx of colonoscopy History of carpal tunnel release History of eye surgery Family History Father No problems noted. Mother Breast cancer Sister In good health Brother Heart problem Other Mental health disorder Social History (Updated 12/18/24 @ 11:20 by DOROTHY Dawn) Household Members: Spouse Housing: House Alcohol intake: current Alcohol intake frequency: a few times a week Comment: Counts correct Patient Tobacco Use Status: Current someday Tobacco user Tobacco use type: Cigar Cigarettes Per Day: 1 e-Cigarette/Vaping Use: Never Used Second Hand Smoke Exposure: No service: Yes Current occupational status: employed Current occupation: [employer] Cognitive needs: No Hearing needs: No Vision needs: No Questionnaire PHQ-9 Over the last 2 weeks, how often have you been bothered by any of the following problems? 1. Little interest or pleasure in doing things: not at all 2. Feeling down, depressed, or hopeless: not at all 3. Trouble falling or staying asleep, or sleeping too much: several days 4. Feeling tired or having little energy: not at all 5. Poor appetite or overeating: not at all 6. Feeling bad about yourself - or that you are a failure or have let yourself or your family down: several days 7. Trouble concentrating on things, such as reading the newspaper or watching television: not at all 8. Moving or speaking so slowly that other people could have noticed. Or the opposite - being so fidgety or restless that you have been moving around a lot more than usual: not at all 9. Thoughts that you would be better off or of hurting yourself in some way: not at all Total score: 2 Depression Screening Interpretation: Negative Depression Screening Done: Yes 35014 - PHQ-9 Billing: Yes Source: Developed by Drs. Cooper Kearney, Makayla Herbert, Christopher Araya and colleagues, with an educational marques from [employer]. Thrive Questionnaire Date Thrive assessed: 05/05/24 I am a: Patient What is your living situation today?: I have a steady place to live Within the past 12 months, did the food you bought not last and you didn't have the money to get more?: Never true Within the past 12 months, did you worry whether your food would run out before you got money to buy more?: Never true Do you have trouble paying for medicines?: No Do you have trouble getting transportation to medical appointments?: No Do you have trouble paying your heating and electricity bill?: No Do you have trouble taking care of your child, family member or friend?: No Do you have trouble with day-to-day activities such as bathing, preparing meals, shopping, managing finances, etc.?: No Are you currently unemployed and looking for a job?: No Are you interested in more education?: No Please select the resources that you would like help with: None Currently or been in a relationship where the following occur: No concerns reported THRIVE Score: 0 MG-7 AMB Questionnaire MG-7 Date MG - 7 assessed: 01/12/25 Feeling nervous, anxious, or on edge: 0 = Not at all Not being able to stop or control worryin = Not at all Worrying too much about different things: 0 = Not at all Trouble relaxin = Not at all Being so restless that it is hard to sit still: 0 = Not at all Becoming easily annoyed or irritable: 0 = Not at all Feeling afraid as if something awful might happen: 0 = Not at all Total MG-7 score (0-4 normal; 5-9 mild; 10-14 moderate; 15-21 severe): 0 Source: Developed by Drs. Cooper Kearney, Makayla Herbert, Christopher Araya and colleagues, with an educational marques from [employer]. MG-7 Assessment Billing MG-7 Assessment Tool: MG-7 Assessment 49254 Review of Systems Const Details: Const Denies chills, Denies fatigue, Denies fever(s), Denies headache(s) and Denies weakness ENT Denies dizziness and Denies headache(s) Card Denies chest pain, Denies lightheadedness, Denies dyspnea and Denies other (Palpitations) Resp Denies cough, Denies dyspnea, Denies wheezing and Denies other ( shortness of breath) GI Denies abdominal pain, Denies melena, Denies hematochezia, Denies change in bowel habits, Denies dyspepsia and Denies nausea Denies hematuria and Denies dysuria Musc Denies abnormal gait, Denies myalgias, Denies arthralgias, Denies numbness and Denies tingling Skin/Breast Denies rash, Denies unusual bruising and Denies wounds Neuro Denies abnormal gait, Denies dizziness, Denies headache(s), Denies memory loss, Denies numbness, Denies Sensory deficit (Neuro), Denies tingling and Denies weakness Psych Denies anxiety, Denies depression, Denies memory loss Endo Denies cold intolerance, Denies fatigue, Denies heat intolerance, Denies polydipsia and Denies polyuria Aller/Immun Denies wheezing Physical exam (Primary Care) Vital Signs: Last Vital Signs Temp 97.9 F 01/12/25 10:44 Pulse 65 01/12/25 10:44 Resp 16 01/12/25 10:44 BP 126/70 01/12/25 10:44 Pulse Ox 98 01/12/25 10:44 Oxygen Delivery Method Room Air 01/12/25 10:44 BMI result Body Mass Index 37.5 Tobacco/Smoking Status: Tobacco use Status Tobacco use date assessed 01/12/25 01/12/25 10:46 Patient Tobacco Use Status Current someday Tobacco 01/12/25 10:34 Tobacco use type Cigar 01/12/25 10:34 e-Cigarette/Vaping Use Never Used 01/12/25 10:34 PHQ-9: PHQ-9 Score PHQ-9: Total score 2 01/12/25 10:54 Depression Screening Interpretation: Negative Thrive Assessment: Date of Thrive Assessment Date Thrive assessed 05/05/24 01/12/25 10:34 Currently or been in a relationship where the following occur: No concerns reported Const Other: General: no acute distress and well developed Nutritional Appearance: well nourished Orientation/consciousness: patient oriented x3 HENMT Head: Yes normocephalic and Yes atraumatic Eyes General: appearance normal, both eyes and all related structures Pupils: Equal, round and reactive pupils present EOM: EOMs intact bilaterally Resp Effort & Inspection: normal respiratory effort Auscultation: clear to auscultation bilaterally Cardio Rate: regular rate Rhythm: regular rhythm Heart sounds: S1 normal heart sound present, S2 normal heart sound present, no gallops, no murmurs and no rubs GI Palpation (GI): No Abdominal aortic bruit present, Soft to palpation, nontender, No hepatosplenomegaly present and No Rebound tenderness present Auscultation: normal bowel sounds General: Yes no CVA tenderness Back/Spine/Pelvis Back: no CVA tenderness Cervical Spine: cervical ROM normal and No Cervical spine tenderness Thoracic/Lumbar Spine: thoraco-lumbar ROM normal, No pain with thoraco-lumbar ROM, No thoracic spinal tenderness and No lumbar spinal tenderness Extrem General: Yes normal to inspection, No edema and No calf tenderness Skin General: warm and dry. Normal skin color. Normal skin turgor Neuro General: patient oriented x3, gait normal and no focal neuro deficit Cranial nerves: Yes Equal, round and reactive pupils present Cognition (Neuro): normal cognition Gait exam (Neuro): Normal gait present Sensory Exam: No Sensory deficit (Neuro) Psych Appearance: grossly normal Affect: normal affect Attitude: cooperative Thought process: Normal thought process present Coding Level of Care Code Est Pt Level 3 (84990) Diagnoses Hypertension, essential I10 Major depression F32.9 ADHD F90.9 Additional Codes MG-7 Assessment Billing - MG-7 Assessment Tool: MG-7 Assessment 24651 ([id number]) PHQ-9 - 39712 - PHQ-9 Billing: Yes ([id number]) Assessment & Plan Assessment & Plan (1) Hypertension, essential: Code(s): I10 - Essential (primary) hypertension Category: Medical Plan: Blood pressure is 126/70, within goal of less than 130/80. Continue current treatment regimen. Low-sodium diet encouraged. Follow-up in 3 months or sooner with symptoms or concerns. Verbalized understanding and agreed with the plan. (2) Major depression: Code(s): F32.9 - Major depressive disorder, single episode, unspecified Category: Medical Plan: Controlled depressive and ADHD symptoms. PHQ-9 and MG-7 scores are normal. Continue current treatment regimen. Routine exercise encouraged. Follow-up in 3 months Verbalized understanding and agreed with the plan. (3) ADHD: Code(s): F90.9 - Attention-deficit hyperactivity disorder, unspecified type Category: Medical Plan: Plan as above.
[2025-01-12 10:44] VITALS: BP 126/70; PULSE 65; RESP 16; TEMP 36.6; O2SAT 98; BMI 37.5
== END 2025-01-12 11:11 | disposition home or self-care (01) ==
LOC: HO.HMCFM 10:33
PROVIDERS: PCP Nurse Practitioner Family; Visit Provider Nurse Practitioner Family
DX: I10 Essential (primary) hypertension (principal); F32.9 Major depressive disorder, single episode, unspecified; F90.9 Attention-deficit hyperactivity disorder, unspecified type

== ENCOUNTER → 2025-01-12 10:32 | Outpatient (BNVA) | payer BC, SELFPAY | PROVIDERS: PCP Nurse Practitioner Family; Visit Provider Nurse Practitioner Family | DX: I10 Essential (primary) hypertension (principal); F90.9 Attention-deficit hyperactivity disorder, unspecified type; F32.9 Major depressive disorder, single episode, unspecified | CPT/HCPCS: 96127 ==